=== PATIENT | male | born 1970 | race Caucasian/White ===

== ENCOUNTER → 2016-10-19 | Outpatient (CLI) | payer OTHER ==
[~2016-10-19] MED LIST: BACT2OIN TOPICAL; BACT800T5 PO; CLIN1CAP5 PO; CLIN1CAP6 PO; DOXY100C PO; GLIP10TA6 PO; HYDR25TA5 PO; LEVA500T PO; LEVEMIR SQ; LISI-515 PO; LISI10TA3 PO; METF500T PO; NOVORP2 SQ; OXYC1CAP PO; PERC5TAB12 PO; TRAM50TA PO
[2016-10-19 10:43] LABS: HDL CHOLESTEROL 44.7 MG/DL (40.0-60.0)
== END ==
LOC: CLAB 09:56
PROVIDERS: ATTEND Family Medicine
DX: C67.9 Malignant neoplasm of bladder, unspecified (principal); E11.9 Type 2 diabetes mellitus without complications; R74.8 Abnormal levels of other serum enzymes
CPT/HCPCS: 36415; 80061; 80074

== ENCOUNTER 2016-11-19 09:00 | Emergency (ER) | payer OTHER ==
[~2016-11-19] VITALS: Ht 188 cm; Wt 141.5 kg
[~2016-11-19 09:00] MED LIST changes: -BACT2OIN TOPICAL; -BACT800T5 PO; -CLIN1CAP5 PO; -CLIN1CAP6 PO; -DOXY100C PO; -GLIP10TA6 PO; -LEVA500T PO; -LISI-515 PO; -NOVORP2 SQ; -OXYC1CAP PO; -PERC5TAB12 PO; -TRAM50TA PO
[2016-11-19 09:02] VITALS: BP 168/112; PULSE 64; RESP 20; TEMP 98; O2SAT 97
[2016-11-19] MEDS ORDERED: MORPHINE SULFATE 4 MG/ML INJ IV PUSH ONE (09:30)
[2016-11-19] MEDS ORDERED: LIDOCAINE HCL 2% 50 ML VIAL INFIL ONE (09:30)
[2016-11-19] MEDS ORDERED: CLINDAMYCIN PHOS 600 MG/4 ML VIAL IM ONE (09:30)
[2016-11-19 09:45] VITALS: RESP 17
[2016-11-19] MEDS ORDERED: CLINDAMYCIN INJ 600 MG in SODIUM CHLORIDE 0.9% INJ 100 ML IV ONE (09:45)
[2016-11-19 09:59] LABS: AUTOMATED NEUTROPHIL # 5.9 TH/MM3 (1.8-7.7); BASOPHIL % 0.4 % (0.0-2.0); EOSINOPHIL # 0.2 TH/MM3 (0-0.4); EOSINOPHIL % 1.9 % (0.0-4.0); HEMATOCRIT 42.2 % (39.0-51.0); HEMO FLAGS DIFF FINAL; LYMPH % 20.8 % (9.0-44.0); LYMPHOCYTE # 1.7 TH/MM3 (1.0-4.8); MEAN CELL VOLUME 80.2 FL (80.0-100.0); MEAN CORPUSCULAR HEMOGLOBIN 26.8 PG (27.0-34.0); MEAN CORPUSCULAR HGB CONC 33.4 % (32.0-36.0); MONO % 6.2 % (0.0-8.0); NEUT % 70.7 % (16.0-70.0); PLATELET COUNT 254 TH/MM3 (150-450); RED BLOOD COUNT 5.27 MIL/MM3 (4.50-5.90); RED CELL DISTRIBUTION WIDTH 13.2 % (11.6-17.2); WHITE BLOOD COUNT 8.3 TH/MM3 (4.0-11.0)
--- NOTE | 2016-11-19 10:09 | RADRPT ---
EXAM DATE/TIME: 11/19/2016 09:55 [facility] COMPARISON: No previous studies available for comparison. INDICATIONS : Skin Complaint, swelling in right forearm. MEDICAL HISTORY : None. SURGICAL HISTORY : None. ENCOUNTER: Initial ACUITY: 1 day PAIN SCORE: 5/10 LOCATION: Right forearm FINDINGS: There is medial predominant soft tissue swelling. No radiopaque foreign body. The right radius and ul na are intact. CONCLUSION: Nonspecific soft tissue swelling without acute bony abnormality. Blayne Serna MD on November 19, 2016 at 10:06 Board Certified Radiologist. This report was verified electronically.
[2016-11-19 10:12] LABS: BICARBONATE 28.7 MEQ/L (21.0-32.0); POTASSIUM 4.1 MEQ/L (3.5-5.1)
--- NOTE | 2016-11-19 10:49 | PD ---
HPI Chief Complaint: Skin Problem Time Seen by Provider: 09:18 Travel History International Travel<30 days: No Contact w/Intl Traveler<30days: No Traveled to known affect area: No History of Present Illness HPI Patient is a 46-year-old male with history of bladder cancer as well as diabetes , who comes in complaining of a painful abscess to his right arm. He says he noticed about 3 days ago, and it got bigger yesterday. He is a asphalt roller operator and says that he has been scratched by some of the [place]. His had issues with abscesses in the past. He denies any fever or chills. He denies any other complaints today. PFSH Past Medical History Arthritis: Yes Asthma: No Autoimmune Disease: No Blood Disorders: No Anxiety: No Depression: No Cancer: Yes (BLADDER) Cardiovascular Problems: Yes (htn on meds) High Cholesterol: No Chemotherapy: Yes Chest Pain: No Congestive Heart Failure: No COPD: No Cerebrovascular Accident: No Diabetes: Yes Patient Takes Glucophage: Yes Diminished Hearing: No Endocrine: No Gastrointestinal Disorders: No Genitourinary: Yes Headaches: Yes Hepatitis: No Hiatal Hernia: No Heparin Induced Thrombocytopen: No Hypertension: Yes Immune Disorder: No Implanted Vascular Access Dvce: Yes Kidney Stones: Yes Medical other: Yes (HEAD INJURY 1993 HX SEIZURES,arthritis) Musculoskeletal: Yes Neurologic: Yes Psychiatric: No Reproductive: No Respiratory: Yes Migraines: No Radiation Therapy: Yes (2013) Renal Failure: No Seizures: Yes (HEAD INJURY) Sickle Cell Disease: No Sleep Apnea: Yes Thyroid Disease: No Tetanus Vaccination: < 5 Years Influenza Vaccination: Yes Past Surgical History Abdominal Surgery: Yes AICD: No Appendectomy: Yes Arteriovenous Shunt: No Body Medical Devices: plate in right ankle Cardiac Surgery: No Ear Surgery: No Endocrine Surgery: No Eye Surgery: No Genitourinary Surgery: Yes (bladder cancer) Gynecologic Surgery: No Hysterectomy: Yes Insulin Pump: No Joint Replacement: No Neurologic Surgery: No Oral Surgery: No Pacemaker: No Thoracic Surgery: No Other Surgery: Yes (appendectomy) Social History Alcohol Use: No Tobacco Use: No Substance Use: No (prior IV drug user) Allergies-Medications (Allergen,Severity, Reaction): Coded Allergies: Dilantin (Verified Allergy, Severe, RASH, 11/19/16) Erythromycin (Verified Allergy, Severe, RASH, 11/19/16) Keflex (Verified Allergy, Severe, Rash, 11/19/16) Penicillin (Verified Allergy, Severe, RASH, 11/19/16) Tegretol (Verified Allergy, Severe, SEIZURES, 11/19/16) Hydrocodone (Verified Allergy, Unknown, HIVES, 11/19/16) Tylenol #3 (Verified Adverse Reaction, Severe, "UPSETS HIS STOMACH", ) ALLERGIC TO CODEINE NOT THE ACETAMINOPHEN *MDRO Multi-Drug Resistant Organism (Verified Adverse Reaction, Unknown, ) 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) Reported Meds & Prescriptions Reported Meds & Active Scripts Active Metformin (Metformin HCl) 500 Mg Tab 1,000 Mg PO BIDPC With meals Levemir Inj (Insulin Detemir) 1,000 unit/ 10 ML Vial 30 Units SQ BID 30 Days Do not mix with any other Insulin. Lisinopril 10 Mg Tab 10 Mg PO DAILY Hydrochlorothiazide 25 Mg Tab 25 Mg PO DAILY Review of Systems Except as stated in HPI: all other systems reviewed are Neg General / Constitutional: No: Fever, Chills HENT: No: Headaches Cardiovascular: No: Chest Pain or Discomfort Respiratory: No: Shortness of Breath Gastrointestinal: No: Nausea, Vomiting Genitourinary: No: Dysuria Musculoskeletal: Positive: Pain Skin: Positive Lesions Neurologic: No: Weakness, Dizziness Physical Exam Narrative GENERAL: Awake and alert, in no acute distress SKIN: Warm and dry. 4cm fluctuant mass to right forearm with overlying erythema. 1cm abscess to base of right thumb, no fluctuance. HEAD: Atraumatic. Normocephalic. EYES: Pupils equal and round. No scleral icterus. No injection or drainage. ENT: Mucous membranes pink and moist. NECK: Trachea midline. No JVD. CARDIOVASCULAR: Regular rate and rhythm. No murmur appreciated. RESPIRATORY: No accessory muscle use. Clear to auscultation. Breath sounds equal bilaterally. MUSCULOSKELETAL: No obvious deformities. No clubbing. No cyanosis. No edema. NEUROLOGICAL: Awake and alert. No obvious cranial nerve deficits. Motor grossly within normal limits. Normal speech. PSYCHIATRIC: Appropriate mood and affect; insight and judgment normal. Data Data Last Documented VS Vital Signs Date Time Temp Pulse Resp B/P Pulse Ox O2 Delivery O2 Flow Rate FiO2 11/19/16 09:45 17 11/19/16 09:12 72 11/19/16 09:02 98.0 168/112 97 Room Air Orders Basic Metabolic Panel (Bmp) (11/19/16 09:26) Complete Blood Count With Diff (11/19/16 09:26) Wound Culture And Gram Stain (11/19/16 09:26) Iv Access Insert/Monitor (11/19/16 09:26) Lidocaine 2% Inj (Xylocaine 2% Inj) (11/19/16 09:30) Clindamycin Inj (Cleocin Inj) (11/19/16 09:30) Morphine Inj (Morphine Inj) (11/19/16 09:30) Forearm (2vws) (11/19/16 ) Clindamycin Inj (Cleocin Inj) (11/19/16 09:45) Labs Laboratory Tests Test 11/19/16 09:35 White Blood Count 8.3 TH/MM3 Red Blood Count 5.27 MIL/MM3 Hemoglobin 14.1 GM/DL Hematocrit 42.2 % Mean Corpuscular Volume 80.2 FL Mean Corpuscular Hemoglobin 26.8 PG Mean Corpuscular Hemoglobin 33.4 % Concent Red Cell Distribution Width 13.2 % Platelet Count 254 TH/MM3 Mean Platelet Volume 8.2 FL Neutrophils (%) (Auto) 70.7 % Lymphocytes (%) (Auto) 20.8 % Monocytes (%) (Auto) 6.2 % Eosinophils (%) (Auto) 1.9 % Basophils (%) (Auto) 0.4 % Neutrophils # (Auto) 5.9 TH/MM3 Lymphocytes # (Auto) 1.7 TH/MM3 Monocytes # (Auto) 0.5 TH/MM3 Eosinophils # (Auto) 0.2 TH/MM3 Basophils # (Auto) 0.0 TH/MM3 CBC Comment DIFF FINAL Differential Comment Sodium Level 135 MEQ/L Potassium Level 4.1 MEQ/L Chloride Level 98 MEQ/L Carbon Dioxide Level 28.7 MEQ/L Anion Gap 8 MEQ/L Blood Urea Nitrogen 9 MG/DL Creatinine 0.67 MG/DL Estimat Glomerular Filtration 129 ML/MIN Rate Random Glucose 292 MG/DL Calcium Level 8.8 MG/DL MDM Medical Decision Making Medical Screen Exam Complete: Yes Emergency Medical Condition: Yes Medical Record Reviewed: Yes Differential Diagnosis Abscess versus cellulitis versus soft tissue infection Narrative Course Patient is a 46-year-old male comes in complaining of pain and swelling to his right arm. Exam shows a 4 cm fluctuant abscess to the forearm as well as a 1 cm nonfluctuant abscess to the base of the right thumb. IV established, labs sent. Labs show no acute abnormalities. X-ray of the forearm obtained shows no gas under the skin. Patient given morphine for pain. Given a dose of clindamycin here. Forearm abscess was drained, large amount of pus expressed. Wound was bandaged and patient discharge with prescription for clindamycin. Patient has an appointment with Dr. Garcia on Sunday. Advised to keep the area clean and dry. Advised to return to the ED immediately if it seems to be worsening, or he develops fevers or is feeling worse. Procedures Procedure Narrative INCISION AND DRAINAGE OF ABSCESS: The area was prepped and was sterilely draped. A subcutaneous wheal of 2 % Xylocaine with a total number 4 mL was used to anesthetize the area properly. A number 11 blade scalpel was used to make a 0.5-cm incision across the area of the abscess. The abscess was drained , complex loculations were broken down, and irrigated with normal saline. Cultures were obtained. Sterile dressing applied. Diagnosis Primary Impression: Abscess Patient Instructions: Abscess (ED), General Instructions Additional Instructions: Follow up with your doctor as scheduled. Take all of your antibiotics. Return to the ED for any worsening symptoms. Scripts Oxycodone 5 Mg Cap5 Mg PO Q6H PRN (PAIN) #6 CAP Ref 0 Prov:Ginger Schwartz MD 11/19/16 Clindamycin 300 Mg [id number] Mg PO Q8H 7 Days Ref 0 Prov:Ginger Schwartz MD 11/19/16 Disposition: 01 DISCHARGE HOME Condition: Stable Ginger Schwartz MD Nov 19, 2016 10:49
[2016-11-19] MEDS ORDERED: CLIN1CAP6 PO (11:04)
[2016-11-19] MEDS ORDERED: OXYC1CAP PO (11:04)
[2016-11-19 11:07] VITALS: BP 160/81; TEMP 97.8
[2016-11-28] MEDS ORDERED: GLIP10TA6 PO (10:02)
[2016-12-04] MEDS ORDERED: TRAM50TA PO (10:37)
[2016-12-04] MEDS ORDERED: LEVA500T PO (10:37)
[2016-12-04] MEDS ORDERED: PERC5TAB12 PO (13:00)
[2016-12-08] MEDS ORDERED: PERC5TAB12 PO (10:51)
[2016-12-27] MEDS ORDERED: BACT800T5 PO (09:44)
[2017-01-23] MEDS ORDERED: BACT800T5 PO (09:34)
[2017-01-23] MEDS ORDERED: LISI-515 PO (09:38)
== END 2016-11-19 11:07 | disposition home or self-care (01) ==
LOC: NEPE 09:00
DX: L02.413 Cutaneous abscess of right upper limb (principal); B95.61 Methicillin susceptible Staphylococcus aureus infection as the cause of diseases classified elsewhere
CPT/HCPCS: 10060; 73090; 80048; 85025; 86403; 87070; 87186; 96365; 96375; 99283; J2270; 87205

== ENCOUNTER → 2016-11-21 | Outpatient (CLI) | payer OTHER ==
[~2016-11-21] MED LIST changes: +BACT2OIN TOPICAL; +BACT800T5 PO; +CLIN1CAP5 PO; +CLIN1CAP6 PO; +DOXY100C PO; +GLIP10TA6 PO; +LEVA500T PO; +LISI-515 PO; +OXYC1CAP PO; +PERC5TAB12 PO; +TRAM50TA PO
[2016-11-23 03:52] LABS: HCV RNA PCR IU/ML 4610000 IU/mL (()); HCV RNA PCR LOGIU/ML 6.66 (())
[2016-11-23 17:52] LABS: HEPATITIS C RNA GENOTYPE 1a (())
== END ==
LOC: CLAB 09:41
PROVIDERS: ATTEND Nurse Practitioner Family
DX: R76.8 Other specified abnormal immunological findings in serum (principal)
CPT/HCPCS: 36415; 87522; 87902

== ENCOUNTER → 2016-12-04 | Day surgery (SDC) | payer OTHER ==
[~2016-12-04] VITALS: Ht 188 cm; Wt 142.5 kg
[~2016-12-04] MED LIST changes: +*morphine SULFATE 8 MG/ML PERIprocedure ONLY ONE; -CLIN1CAP6 PO; +DO NOT ADM ANY ANTICOAGULANT DRUGS XX PRN; +INSULIN HUMAN REGULAR 1,000 UNITS/10 ML VIAL SQ PRN; +LACTATED RINGER'S 1000 ML INJ 1,000 ML IV ONE; +LACTATED RINGER'S 1000 ML IV SCH; +LEVOFLOXACIN 500 MG PREMIX INJ 100 ML IV SCH; +METOPROLOL TARTRATE 25 MG TAB PO PRN; +MORPHINE SULFATE 4 MG/ML INJ ONE; +NEOSTIGMINE 3 MG/3 ML SYR IV ONE; +ONDANSETRON HCL 4 MG/2 ML VIAL IV PUSH ONE; +ONDANSETRON HCL 4 MG/2 ML VIAL IV PUSH PRN; -OXYC1CAP PO; +PROPOFOL 200 MG/20 ML AMP IV ONE; +SODIUM CHLORID 0.9% 500 ML IV SCH; +traMADol HCL 50 MG TAB PO PRN
[2016-12-04 07:43] VITALS: BP 160/101; PULSE 69; RESP 16; TEMP 98.1; O2SAT 96
[2016-12-04 08:18] LABS: AUTOMATED NEUTROPHIL # 4.1 TH/MM3 (1.8-7.7); BASOPHIL # 0.1 TH/MM3 (0-0.2); EOSINOPHIL # 0.2 TH/MM3 (0-0.4); EOSINOPHIL % 2.2 % (0.0-4.0); LYMPH % 28.5 % (9.0-44.0); LYMPHOCYTE # 1.9 TH/MM3 (1.0-4.8); MEAN CELL VOLUME 79.3 FL (80.0-100.0); MEAN CORPUSCULAR HEMOGLOBIN 27.2 PG (27.0-34.0); MEAN CORPUSCULAR HGB CONC 34.3 % (32.0-36.0); MONO % 7.2 % (0.0-8.0); NEUT % 61.1 % (16.0-70.0); PLATELET COUNT 241 TH/MM3 (150-450); RED BLOOD COUNT 5.68 MIL/MM3 (4.50-5.90); RED CELL DISTRIBUTION WIDTH 13.4 % (11.6-17.2); WHITE BLOOD COUNT 6.8 TH/MM3 (4.0-11.0)
[2016-12-04 08:31] LABS: HEMO FLAGS AUTO DIFF
[2016-12-04 09:11] LABS: SCAN/DIFF AUTO DIFF CONFIRMED
--- NOTE | 2016-12-04 10:35 | PD.OP ---
Operative Report Date of Surgery: Dec 04, 2016 Preoperative Diagnosis: (1) Bladder mass Postoperative Diagnosis: (1) Bladder mass Procedure: Cystoscopy, biopsy and fulguration of bladder mass Anesthesia: General Surgeon: Pk Roberts Wood Lather(s): None Operation and Findings: Indication for procedure: Case of a pleasant 46-year-old gentleman with recurrent bladder cancer who presents today for biopsy and fulguration of a small recurrent mass involving the bladder dome. Operative procedure in detail: Patient was brought to the operating suite and placed supine on the cystoscopy table. He was then placed under general anesthesia. He was then repositioned in the dorsolithotomy position and prepped and draped in normal sterile fashion. After appropriate timeout was undertaken I proceeded with a thorough cystoscopic evaluation utilizing the rigid cystoscope. The 20 Lao sheath and both 30 and 70 lenses were utilized. Once again the patient was noted to have a raised erythematous lesion involving the bladder dome approximately 1 cm in diameter suspicious for recurrent disease. A cup biopsy was taken and sent off to pathology. Next the rollerball was utilized and the biopsy site and adjacent tissue was fulgurated. Patient tolerated the procedure well without complications and was transferred to the PACU in satisfactory condition. Pk Roberts MD Dec 04, 2016 10:35
--- NOTE | 2016-12-04 11:16 | RADRPT ---
EXAM DATE/TIME: 12/04/2016 10:50 [facility] COMPARISON: CHEST SINGLE AP, August 01, 2015, 15:36. INDICATIONS : Central line placement MEDICAL HISTORY : Carcinoma, bladder. SURGICAL HISTORY : None. ENCOUNTER: Initial ACUITY: 1 day PAIN SCORE: Non-responsive. LOCATION: Bilateral chest FINDINGS: A single view of the chest demonstrates interval placement of a right jugular central venous catheter . Tip of the catheter is in the superior vena cava. There is no evidence of pneumothorax or acute air space disease. Heart and mediastinal structures are stable. CONCLUSION: Status post insertion of a right jugular central venous catheter which is in good position. No evidence of pneumothorax or acute process. Stanley Baker MD on December 04, 2016 at 11:14 Board Certified Radiologist. This report was verified electronically.
[2016-12-04 12:55] VITALS: BP 158/106; PULSE 66; RESP 18; TEMP 97.7; O2SAT 99
== END | disposition home or self-care (01) ==
LOC: HSDC 06:54
PROVIDERS: ATTEND Urology
DX: N30.01 Acute cystitis with hematuria (principal); N30.21 Other chronic cystitis with hematuria; Z85.51 Personal history of malignant neoplasm of bladder; E11.9 Type 2 diabetes mellitus without complications; I10 Essential (primary) hypertension; M19.90 Unspecified osteoarthritis, unspecified site; Z87.891 Personal history of nicotine dependence; E66.01 Morbid (severe) obesity due to excess calories; Z68.41 Body mass index [BMI] 40.0-44.9, adult; Z88.1 Allergy status to other antibiotic agents; Z88.0 Allergy status to penicillin; Z88.8 Allergy status to other drugs, medicaments and biological substances; Z79.84 Long term (current) use of oral hypoglycemic drugs; Z79.4 Long term (current) use of insulin
CPT/HCPCS: 00912; 52234; 71010; 82948; 85025; 88305; J2270; J2405; J2710; J3010; J7120; 88307

== ENCOUNTER → 2017-01-15 | Outpatient (CLI) | payer OTHER ==
[~2017-01-15] MED LIST changes: -*morphine SULFATE 8 MG/ML PERIprocedure ONLY ONE; -DO NOT ADM ANY ANTICOAGULANT DRUGS XX PRN; -INSULIN HUMAN REGULAR 1,000 UNITS/10 ML VIAL SQ PRN; -LACTATED RINGER'S 1000 ML INJ 1,000 ML IV ONE; -LACTATED RINGER'S 1000 ML IV SCH; -LEVA500T PO; -LEVOFLOXACIN 500 MG PREMIX INJ 100 ML IV SCH; -METOPROLOL TARTRATE 25 MG TAB PO PRN; -MORPHINE SULFATE 4 MG/ML INJ ONE; -NEOSTIGMINE 3 MG/3 ML SYR IV ONE; -ONDANSETRON HCL 4 MG/2 ML VIAL IV PUSH ONE; -ONDANSETRON HCL 4 MG/2 ML VIAL IV PUSH PRN; -PERC5TAB12 PO; -PROPOFOL 200 MG/20 ML AMP IV ONE; -SODIUM CHLORID 0.9% 500 ML IV SCH; -traMADol HCL 50 MG TAB PO PRN
[2017-01-15 14:15] LABS: HEMOGLOBIN Ao 81.6 %; HEMOGLOBIN LA1C 2.3 %; HEMOGLOBIN P3 4.2 %
== END ==
LOC: CLAB 08:16
PROVIDERS: ATTEND Family Medicine
DX: E11.9 Type 2 diabetes mellitus without complications (principal)
CPT/HCPCS: 36415; 83036

== ENCOUNTER 2017-02-13 19:53 | Emergency (ER) | payer OTHER ==
[~2017-02-13 19:53] MED LIST changes: -BACT2OIN TOPICAL; -CLIN1CAP5 PO; -DOXY100C PO; -LISI10TA3 PO; -TRAM50TA PO
[2017-02-13 19:55] VITALS: BP 134/67; PULSE 71; RESP 16; TEMP 98.7; O2SAT 96
[2017-02-13] MEDS ORDERED: VANCOMYCIN INJ 1,000 MG in SODIUM CHLOR 0.9% 250 ML INJ 250 ML IV ONE (20:30)
[2017-02-13 20:55] LABS: AUTOMATED NEUTROPHIL # 3.8 TH/MM3 (1.8-7.7); BASOPHIL # 0.1 TH/MM3 (0-0.2); EOSINOPHIL # 0.2 TH/MM3 (0-0.4); EOSINOPHIL % 2.9 % (0.0-4.0); HEMATOCRIT 42.3 % (39.0-51.0); HEMO FLAGS DIFF FINAL; LYMPH % 34.1 % (9.0-44.0); LYMPHOCYTE # 2.4 TH/MM3 (1.0-4.8); MEAN CELL VOLUME 79.1 FL (80.0-100.0); MEAN CORPUSCULAR HEMOGLOBIN 25.9 PG (27.0-34.0); MEAN CORPUSCULAR HGB CONC 32.7 % (32.0-36.0); PLATELET COUNT 272 TH/MM3 (150-450); RED BLOOD COUNT 5.34 MIL/MM3 (4.50-5.90); RED CELL DISTRIBUTION WIDTH 13.7 % (11.6-17.2)
[2017-02-13 21:18] LABS: BICARBONATE 32.1 MEQ/L (21.0-32.0); POTASSIUM 3.9 MEQ/L (3.5-5.1)
--- NOTE | 2017-02-13 21:29 | PD ---
HPI Chief Complaint: Skin Problem Time Seen by Provider: 21:24 Travel History International Travel<30 days: No Contact w/Intl Traveler<30days: No Traveled to known affect area: No History of Present Illness HPI 26-year-old male that presents to the ED for evaluation of possible skin infection. Per patient she has a history of MRSA and has had multiple infections in his past. Per patient he does have a remote history of IV drug abuse and he denies doing this anymore. Per patient he does get a little bug bites because he works for [employer]. Patient has a history of cancer as well that is currently under remission. He denies any chest pain or shortness of breath. He states that the bumps are in his legs bilaterally as well as his left arm. Per patient the slightly painful but not fluid-filled. Patient does have bug bites to his right arm as well as his left arm which she is not really concerned about. He states that he went to see his doctor Dr. Hall who started him on bactrim and this seemed to get the infection away but now he is having new bumps since finished antibiotics. Denies any other issues. No fevers chills or sweats. Per patient the pain is 2 out of 10. PFSH Past Medical History Arthritis: Yes Asthma: No Autoimmune Disease: No Blood Disorders: No Anxiety: No Depression: No Cancer: Yes (BLADDER) Cardiovascular Problems: Yes High Cholesterol: No Chemotherapy: Yes Chest Pain: No Congestive Heart Failure: No COPD: No Cerebrovascular Accident: No Diabetes: Yes Patient Takes Glucophage: Yes Diminished Hearing: No Endocrine: No Gastrointestinal Disorders: No Genitourinary: Yes (BLADDER CANCER) Headaches: Yes Hepatitis: Yes (HEPATITIS C) Hiatal Hernia: No Heparin Induced Thrombocytopen: No Hypertension: Yes Immune Disorder: No Implanted Vascular Access Dvce: Yes Kidney Stones: Yes Medical other: No Musculoskeletal: Yes (LOWER BACK DISC PROBLEM, ARTHRITIS) Neurologic: Yes (SEIZURES) Psychiatric: No Reproductive: No Respiratory: Yes (SLEEP APNEA) Migraines: No Radiation Therapy: Yes (2013) Renal Failure: No Seizures: Yes (HEAD INJURY) Sickle Cell Disease: No Sleep Apnea: Yes Thyroid Disease: No Past Surgical History Abdominal Surgery: Yes (APPENDECTOMY) AICD: No Appendectomy: Yes Arteriovenous Shunt: No Body Medical Devices: plate in right ankle Cardiac Surgery: No Ear Surgery: No Endocrine Surgery: No Eye Surgery: No Genitourinary Surgery: Yes (9 SURGERIES ON BLADDER) Gynecologic Surgery: No Hysterectomy: Yes Insulin Pump: No Joint Replacement: No Neurologic Surgery: No Oral Surgery: No Pacemaker: No Thoracic Surgery: No Other Surgery: Yes (appendectomy) Social History Alcohol Use: No Tobacco Use: No Substance Use: No (prior IV drug user) Allergies-Medications (Allergen,Severity, Reaction): Coded Allergies: Dilantin (Verified Allergy, Severe, RASH, 02/13/17) Erythromycin (Verified Allergy, Severe, RASH, 02/13/17) Keflex (Verified Allergy, Severe, Rash, 02/13/17) Penicillin (Verified Allergy, Severe, RASH, 02/13/17) Tegretol (Verified Allergy, Severe, HIVES, 02/13/17) Hydrocodone (Verified Allergy, Unknown, HIVES, 02/13/17) Tylenol #3 (Verified Adverse Reaction, Severe, "UPSETS HIS STOMACH", ) ALLERGIC TO CODEINE NOT THE ACETAMINOPHEN *MDRO Multi-Drug Resistant Organism (Verified Adverse Reaction, Unknown, ) 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) Reported Meds & Prescriptions Reported Meds & Active Scripts Active Lisinopril 20 Mg Tab 20 Mg PO DAILY Glipizide 10 Mg Tab 10 Mg PO BIDAC Take 30 minutes before a meal Metformin (Metformin HCl) 500 Mg Tab 1,000 Mg PO BIDPC With meals Levemir Inj (Insulin Detemir) 1,000 unit/ 10 ML Vial 30 Units SQ BID 30 Days Do not mix with any other Insulin. Hydrochlorothiazide 25 Mg Tab 25 Mg PO DAILY Review of Systems Except as stated in HPI: all other systems reviewed are Neg Physical Exam Narrative GENERAL: SKIN: Warm and dry. HEAD: Atraumatic. Normocephalic. EYES: Pupils equal and round. No scleral icterus. No injection or drainage. ENT: No nasal bleeding or discharge. Mucous membranes pink and moist. Tongue is midline. No uvula deviation. NECK: Trachea midline. No JVD. CARDIOVASCULAR: Regular rate and rhythm. No murmurs, S3, S4. RESPIRATORY: No accessory muscle use. Clear to auscultation. Breath sounds equal bilaterally. GASTROINTESTINAL: Abdomen soft, non-tender, nondistended. Hepatic and splenic margins not palpable. MUSCULOSKELETAL: Extremities without clubbing, cyanosis, or edema. No obvious deformities. Full range of motion of the upper and lower extremities bilaterally. 2+ pulses bilaterally. Patient has areas of erythema about less than 1 cm in diameter almost appear like bug bites on the medial aspect of the left and right leg as well as the left hand. Patient has bug bite-like lesions on the right forearm as well as the left forearm which appear to be chronic. Erythema is blanchable. Warm to touch and slightly tender. NEUROLOGICAL: Awake and alert. No obvious cranial nerve deficits. Motor grossly within normal limits. Five out of 5 muscle strength in the arms and legs. Normal speech. PSYCHIATRIC: Appropriate mood and affect; insight and judgment normal. Data Data Last Documented VS Vital Signs Date Time Temp Pulse Resp B/P Pulse Ox O2 Delivery O2 Flow Rate FiO2 02/13/17 19:55 98.7 71 16 134/67 96 Room Air Orders Complete Blood Count With Diff (02/13/17 20:19) Basic Metabolic Panel (Bmp) (02/13/17 20:19) Blood Culture (02/13/17 20:19) Iv Access Insert/Monitor (02/13/17 20:19) Vancomycin Inj (Vancomycin Inj) (02/13/17 20:30) Labs Laboratory Tests Test 02/13/17 20:35 White Blood Count 7.0 TH/MM3 Red Blood Count 5.34 MIL/MM3 Hemoglobin 13.8 GM/DL Hematocrit 42.3 % Mean Corpuscular Volume 79.1 FL Mean Corpuscular Hemoglobin 25.9 PG Mean Corpuscular Hemoglobin 32.7 % Concent Red Cell Distribution Width 13.7 % Platelet Count 272 TH/MM3 Mean Platelet Volume 7.5 FL Neutrophils (%) (Auto) 54.0 % Lymphocytes (%) (Auto) 34.1 % Monocytes (%) (Auto) 8.0 % Eosinophils (%) (Auto) 2.9 % Basophils (%) (Auto) 1.0 % Neutrophils # (Auto) 3.8 TH/MM3 Lymphocytes # (Auto) 2.4 TH/MM3 Monocytes # (Auto) 0.6 TH/MM3 Eosinophils # (Auto) 0.2 TH/MM3 Basophils # (Auto) 0.1 TH/MM3 CBC Comment DIFF FINAL Differential Comment Sodium Level 136 MEQ/L Potassium Level 3.9 MEQ/L Chloride Level 96 MEQ/L Carbon Dioxide Level 32.1 MEQ/L Anion Gap 8 MEQ/L Blood Urea Nitrogen 15 MG/DL Creatinine 0.91 MG/DL Estimat Glomerular Filtration 91 ML/MIN Rate Random Glucose 150 MG/DL Calcium Level 9.2 MG/DL MDM Medical Decision Making Medical Screen Exam Complete: Yes Emergency Medical Condition: Yes Medical Record Reviewed: Yes Interpretation(s) CBC & BMP Diagram 02/13/17 20:35 Differential Diagnosis Cellulitis versus MRSA versus skin infection Narrative Course 46-year-old male that presents to the ED for evaluation of skin lesions. Patient was properly examined and was found to have signs and symptoms consistent with appears to be early cellulitis. Patient has a chronic history of MRSA. Nerve not overly impressive but he does appear to have multiple ones. One in each extremity. Patient was just put on Bactrim. At this time I recommend labs and IV antibiotics. Labs were essentially unremarkable. Patient was given vancomycin. No retractions. This time I recommend trying clindamycin to cover for possible persistence. Patient is in agreement with this plan. I recommend also Bactroban to apply to the wounds. Close follow with PCP. See ED for any worsening symptoms. Diagnosis Primary Impression: Cellulitis Qualified Code: L03.119 - Cellulitis of lower extremity, unspecified laterality Patient Instructions: General Instructions Additional Instructions: Take medication as prescribed. Apply cream as prescribed. Follow with PCP. See ED for worsening symptoms. Med/Other Pt SpecificInfo: Prescription(s) given Disposition: 01 DISCHARGE HOME Condition: Stable Yasmani Carlton February 13, 2017 21:29
[2017-02-13] MEDS ORDERED: CLIN1CAP5 PO (21:30)
[2017-02-13] MEDS ORDERED: BACT2OIN TOPICAL (21:30)
== END 2017-02-13 22:34 | disposition home or self-care (01) ==
LOC: NEPE 19:53
DX: L03.119 Cellulitis of unspecified part of limb (principal); I10 Essential (primary) hypertension; E11.9 Type 2 diabetes mellitus without complications; G47.30 Sleep apnea, unspecified; Z79.84 Long term (current) use of oral hypoglycemic drugs; Z86.14 Personal history of Methicillin resistant Staphylococcus aureus infection; Z87.39 Personal history of other diseases of the musculoskeletal system and connective tissue; Z85.51 Personal history of malignant neoplasm of bladder; Z86.79 Personal history of other diseases of the circulatory system; Z86.19 Personal history of other infectious and parasitic diseases; Z87.442 Personal history of urinary calculi; Z86.69 Personal history of other diseases of the nervous system and sense organs
CPT/HCPCS: 80048; 85025; 87040; 87205; 96365; 99284; J3370; J7050

== ENCOUNTER 2017-03-11 09:46 | Emergency (ER) | payer OTHER ==
[~2017-03-11] VITALS: Ht 188 cm; Wt 140.0 kg
[~2017-03-11 09:46] MED LIST changes: +BACT2OIN TOPICAL; -BACT800T5 PO; +CLIN1CAP5 PO
[2017-03-11 09:48] VITALS: BP 163/106; PULSE 82; RESP 20; TEMP 98; O2SAT 99
[2017-03-11] MEDS ORDERED: KETOROLAC TROMETHAMINE 30 MG/ML (IVP) VIAL IVP ONE (10:15)
--- NOTE | 2017-03-11 10:24 | PD ---
HPI . Right ankle injury Chief Complaint: Injury Time Seen by Provider: 10:03 Travel History International Travel<30 days: No Contact w/Intl Traveler<30days: No Traveled to known affect area: No History of Present Illness HPI Patient presents with a right ankle injury. He rolled his ankle this morning. Pain is exacerbated by walking. Pain is relieved by rest. Pain is dull and constant and is rated at 9/10. In addition, the patient is complaining with MRSA. Patient reports numerous previous similar episodes. He states that he was recently treated here with vancomycin followed by [facility] as an outpatient. He states that he completed his Cleocin approximately 3-4 days ago but still has lesions. He reports a fever yesterday with a MAXIMUM TEMPERATURE of 102.1. PFSH Past Medical History Arthritis: Yes Asthma: No Autoimmune Disease: No Blood Disorders: No Anxiety: No Depression: No Cancer: Yes Cardiovascular Problems: Yes High Cholesterol: No Chemotherapy: Yes Chest Pain: No Congestive Heart Failure: No COPD: No Cerebrovascular Accident: No Diabetes: Yes Patient Takes Glucophage: Yes Diminished Hearing: No Endocrine: No Gastrointestinal Disorders: No Genitourinary: Yes (BLADDER CANCER) Headaches: Yes Hepatitis: Yes (HEPATITIS C) Hiatal Hernia: No Heparin Induced Thrombocytopen: No Hypertension: Yes Immune Disorder: No Implanted Vascular Access Dvce: Yes Kidney Stones: Yes Musculoskeletal: Yes (LOWER BACK DISC PROBLEM, ARTHRITIS) Neurologic: Yes (SEIZURES) Psychiatric: No Reproductive: No Respiratory: Yes (SLEEP APNEA) Migraines: No Radiation Therapy: Yes (2013) Renal Failure: No Seizures: Yes (HEAD INJURY) Sickle Cell Disease: No Sleep Apnea: Yes Thyroid Disease: No Past Surgical History Abdominal Surgery: Yes (APPENDECTOMY) AICD: No Appendectomy: Yes Arteriovenous Shunt: No Body Medical Devices: plate in right ankle Cardiac Surgery: No Ear Surgery: No Endocrine Surgery: No Eye Surgery: No Genitourinary Surgery: Yes (9 SURGERIES ON BLADDER) Gynecologic Surgery: No Hysterectomy: Yes Insulin Pump: No Joint Replacement: No Neurologic Surgery: No Oral Surgery: No Pacemaker: No Thoracic Surgery: No Other Surgery: Yes (appendectomy) Social History Alcohol Use: No Tobacco Use: No Substance Use: No Allergies-Medications (Allergen,Severity, Reaction): Coded Allergies: Dilantin (Verified Allergy, Severe, RASH, 03/11/17) Erythromycin (Verified Allergy, Severe, RASH, 03/11/17) Keflex (Verified Allergy, Severe, Rash, 03/11/17) Penicillin (Verified Allergy, Severe, RASH, 03/11/17) Tegretol (Verified Allergy, Severe, HIVES, 03/11/17) Hydrocodone (Verified Allergy, Unknown, HIVES, 03/11/17) Tylenol #3 (Verified Adverse Reaction, Severe, "UPSETS HIS STOMACH", ) ALLERGIC TO CODEINE NOT THE ACETAMINOPHEN *MDRO Multi-Drug Resistant Organism (Verified Adverse Reaction, Unknown, ) 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) Reported Meds & Prescriptions Reported Meds & Active Scripts Active Tramadol (Tramadol HCl) 50 Mg Tab 50 Mg PO Q4H PRN Doxycycline Hyclate 100 Mg Cap 100 Mg PO BID Lisinopril 20 Mg Tab 20 Mg PO DAILY Glipizide 10 Mg Tab 10 Mg PO BIDAC Take 30 minutes before a meal Metformin (Metformin HCl) 500 Mg Tab 1,000 Mg PO BIDPC With meals Levemir Inj (Insulin Detemir) 1,000 unit/ 10 ML Vial 30 Units SQ BID 30 Days Do not mix with any other Insulin. Hydrochlorothiazide 25 Mg Tab 25 Mg PO DAILY Review of Systems Except as stated in HPI: all other systems reviewed are Neg General / Constitutional: Positive: Fever, Chills Musculoskeletal: Positive: Myalgias, Arthralgias, Pain Skin: Positive Lesions Physical Exam Narrative GENERAL: Awake and alert and in no acute distress. SKIN: Warm and dry. He has scattered lesions on his lower extremity. They aren 't erythematous and raised. They are of varying sizes. All of them are draining. None are fluctuant. HEAD: Atraumatic. Normocephalic. EYES: Pupils equal and round. NECK: Trachea midline. CARDIOVASCULAR: Regular rate and rhythm. RESPIRATORY: No accessory muscle use. MUSCULOSKELETAL: No obvious deformities. No edema. He has scars on the right ankle consistent with previous ORIF. He has diffuse tenderness to palpation of the right ankle. There is no instability. He is distally neurovascularly intact. NEUROLOGICAL: Awake and alert. No obvious cranial nerve deficits. Motor grossly within normal limits. Normal speech. PSYCHIATRIC: Appropriate mood and affect; insight and judgment normal. Data Data Last Documented VS Vital Signs Date Time Temp Pulse Resp B/P Pulse Ox O2 Delivery O2 Flow Rate FiO2 03/11/17 09:48 98.0 82 20 163/106 99 Room Air Orders Basic Metabolic Panel (Bmp) (03/11/17 10:08) Complete Blood Count With Diff (03/11/17 10:08) Blood Culture (03/11/17 10:08) Iv Access Insert/Monitor (03/11/17 10:08) Ketorolac Inj (Toradol Inj) (03/11/17 10:15) C-Reactive Protein (Crp) (03/11/17 10:08) Westergren Sedimentation Rate (03/11/17 10:08) Ankle, Complete (Kef5pir) (03/11/17 10:08) Labs Laboratory Tests Test 03/11/17 10:23 White Blood Count 6.9 TH/MM3 Red Blood Count 5.60 MIL/MM3 Hemoglobin 14.5 GM/DL Hematocrit 43.6 % Mean Corpuscular Volume 77.9 FL Mean Corpuscular Hemoglobin 25.9 PG Mean Corpuscular Hemoglobin 33.2 % Concent Red Cell Distribution Width 13.8 % Platelet Count 274 TH/MM3 Mean Platelet Volume 8.0 FL Neutrophils (%) (Auto) 67.5 % Lymphocytes (%) (Auto) 22.8 % Monocytes (%) (Auto) 7.7 % Eosinophils (%) (Auto) 1.5 % Basophils (%) (Auto) 0.5 % Neutrophils # (Auto) 4.7 TH/MM3 Lymphocytes # (Auto) 1.6 TH/MM3 Monocytes # (Auto) 0.5 TH/MM3 Eosinophils # (Auto) 0.1 TH/MM3 Basophils # (Auto) 0.0 TH/MM3 CBC Comment DIFF FINAL Differential Comment Erythrocyte Sedimentation Rate 41 mm/hr Sodium Level 135 MEQ/L Potassium Level 4.4 MEQ/L Chloride Level 100 MEQ/L Carbon Dioxide Level 26.6 MEQ/L Anion Gap 8 MEQ/L Blood Urea Nitrogen 10 MG/DL Creatinine 0.70 MG/DL Estimat Glomerular Filtration 123 ML/MIN Rate Random Glucose 180 MG/DL Calcium Level 9.0 MG/DL C-Reactive Protein 1.40 MG/DL MDM Medical Decision Making Medical Screen Exam Complete: Yes Emergency Medical Condition: Yes Medical Record Reviewed: Yes (the patient was most recently seen here on 02/13 with skin lesions. He was treated with vancomycin in the emergency department and was discharged on Cleocin. His white blood count at that time was 7.0. The patient reported at that visit that he had been recently treated with Bactrim.) Differential Diagnosis Differential diagnosis of extremity trauma includes but is not limited to fracture, sprain or strain, dislocation, contusion My differential diagnosis includes but is not limited to localized wound infection, cellulitis, abscess Narrative Course This patient presents with 2 problems. His chief complaint is an acute right ankle injury. X-ray has been ordered. His second complaint is persistent MRSA. I have ordered a CBC, blood cultures, sedimentation rate, C-reactive protein. CBC & BMP Diagram 03/11/17 10:23 ESR 41, CRP 1.40 X-ray to my interpretation shows hardware in place. No acute injury. The history, exam, diagnostic testing, and current condition do not suggest any significant pathology to warrant further testing, continued ED treatment, admission, or surgical evaluation at this point. The patient's condition is stable and appropriate for discharge. Diagnosis Primary Impression: Ankle sprain Qualified Code: S93.401A - Sprain of right ankle, unspecified ligament, initial encounter Additional Impression: Skin lesions Scripts Tramadol 50 Mg Tab50 Mg PO Q4H PRN (PAIN) #12 TAB Ref 0 Prov:Mitzi Lizarraga MD 03/11/17 Doxycycline Hyclate 100 Mg Nrr312 Mg PO BID #20 CAP Ref 0 Prov:Mitzi Lizarraga MD 03/11/17 Disposition: 01 DISCHARGE HOME Condition: Stable Mitzi Lizarraga MD Mar 11, 2017 10:24
[2017-03-11 10:42] LABS: AUTOMATED NEUTROPHIL # 4.7 TH/MM3 (1.8-7.7); BASOPHIL % 0.5 % (0.0-2.0); EOSINOPHIL # 0.1 TH/MM3 (0-0.4); EOSINOPHIL % 1.5 % (0.0-4.0); HEMATOCRIT 43.6 % (39.0-51.0); HEMO FLAGS DIFF FINAL; LYMPH % 22.8 % (9.0-44.0); LYMPHOCYTE # 1.6 TH/MM3 (1.0-4.8); MEAN CELL VOLUME 77.9 FL (80.0-100.0); MEAN CORPUSCULAR HEMOGLOBIN 25.9 PG (27.0-34.0); MEAN CORPUSCULAR HGB CONC 33.2 % (32.0-36.0); MONO % 7.7 % (0.0-8.0); NEUT % 67.5 % (16.0-70.0); PLATELET COUNT 274 TH/MM3 (150-450); RED CELL DISTRIBUTION WIDTH 13.8 % (11.6-17.2); WHITE BLOOD COUNT 6.9 TH/MM3 (4.0-11.0)
[2017-03-11 11:30] LABS: BICARBONATE 26.6 MEQ/L (21.0-32.0)
[2017-03-11 11:31] LABS: POTASSIUM 4.4 MEQ/L (3.5-5.1)
[2017-03-11] MEDS ORDERED: DOXY100C PO (11:36)
[2017-03-11] MEDS ORDERED: TRAM50TA PO (11:36)
--- NOTE | 2017-03-11 12:15 | RADRPT ---
EXAM DATE/TIME: 03/11/2017 11:49 [facility] COMPARISON: No previous studies available for comparison. INDICATIONS : Pain from twisting of ankle. MEDICAL HISTORY : Prior fracture. SURGICAL HISTORY : Surgical repair of fracture. ENCOUNTER: Initial ACUITY: 1 day PAIN SCORE: 5/10 LOCATION: Right ankle. FINDINGS: Plate and screw fixation of the distal fibula. The hardware appears intact without evidence for loose markus. Redemonstration of ossific densities adjacent to the medial malleolus which may reflect an old avulsion injury. Degenerative changes are noted in the ankle joint. The talar dome is intact. Her bridger ntar calcaneal spurring. There is mild soft tissue prominence about the ankle. CONCLUSION: 1. Soft tissue swelling without acute fracture or dislocation. 2. Plate and screw fixation of the distal fibula. Hardware appears intact. 3. Degenerative osteoarthritis of the ankle, likely posttraumatic. Chris Molina MD on March 11, 2017 at 12:09 Board Certified Radiologist. This report was verified electronically.
== END 2017-03-11 12:22 | disposition home or self-care (01) ==
LOC: NEPD 09:46
DX: S93.401A Sprain of unspecified ligament of right ankle, initial encounter (principal); L98.9 Disorder of the skin and subcutaneous tissue, unspecified; B19.20 Unspecified viral hepatitis C without hepatic coma; M19.90 Unspecified osteoarthritis, unspecified site; E11.9 Type 2 diabetes mellitus without complications; I10 Essential (primary) hypertension; R56.9 Unspecified convulsions; Z79.899 Other long term (current) drug therapy; X50.1XXA Overexertion from prolonged static or awkward postures, initial encounter
CPT/HCPCS: 73610; 80048; 85025; 85652; 86140; 87040; 96374; 99284; J1885

== ENCOUNTER 2017-03-28 12:29 | Emergency (ER) | payer OTHER ==
[~2017-03-28] VITALS: Ht 188 cm; Wt 138.0 kg
[~2017-03-28 12:29] MED LIST changes: -BACT2OIN TOPICAL; -CLIN1CAP5 PO; +DOXY100C PO; +TRAM50TA PO
[2017-03-28 12:30] VITALS: BP 135/92; PULSE 74; RESP 18; TEMP 98.3; O2SAT 96
--- NOTE | 2017-03-28 12:47 | PD ---
Physical Exam Time Seen by Provider: 12:45 Narrative Pt presents to the ED for evaluation of MRSA skin infection of bilateral legs. was on antibiotic since Father's day without improvement. States has loss of sensation in feet. Hx of DM. States had fever yesterday. VSS. Awaiting bed placement. Data Data Last Documented VS Vital Signs Date Time Temp Pulse Resp B/P Pulse Ox O2 Delivery O2 Flow Rate FiO2 03/28/17 12:30 98.3 74 18 135/92 96 Room Air MDM Supervised Visit with KENNEY: Lakeshia Bertrand Mar 28, 2017 12:47
--- NOTE | 2017-03-28 13:12 | PD ---
HPI Chief Complaint: Skin Problem Time Seen by Provider: 12:55 Travel History International Travel<30 days: No Contact w/Intl Traveler<30days: No Traveled to known affect area: No History of Present Illness HPI This is a 46-year-old male with a history of diabetes who presents for evaluation of lower extremity nodular lesions. He reports that he developed nodular lesions on the right lower extremity in late December. Shortly thereafter he developed similar nodular densities on the left lower extremity. Initially he saw his primary care physician on January 23 and was prescribed antibiotics for presumed cellulitic infection. He was seen here on February 13 and given vancomycin and clindamycin. Symptoms persisted and she was seen here again on March 11 and started on doxycycline. Symptoms have persisted which prompted reevaluation today. He notes a new area of erythema on the medial left thigh which started over the past several days. He leaves that he may have had a low-grade fever 3- 4 days ago, none since. He has no other complaints at this time. PFSH Past Medical History Arthritis: Yes Asthma: No Autoimmune Disease: No Blood Disorders: No Anxiety: No Depression: No Cancer: Yes Cardiovascular Problems: Yes High Cholesterol: No Chemotherapy: Yes (Bladder cancer ) Chest Pain: No Congestive Heart Failure: No COPD: No Cerebrovascular Accident: No Diabetes: Yes Diminished Hearing: No Endocrine: No Gastrointestinal Disorders: No Genitourinary: Yes (BLADDER CANCER) Headaches: Yes Hepatitis: Yes (HEPATITIS C) Hiatal Hernia: No Heparin Induced Thrombocytopen: No Hypertension: Yes Immune Disorder: No Implanted Vascular Access Dvce: Yes Kidney Stones: Yes Musculoskeletal: Yes (LOWER BACK DISC PROBLEM, ARTHRITIS) Neurologic: Yes (SEIZURES) Psychiatric: No Reproductive: No Respiratory: Yes (SLEEP APNEA) Migraines: No Radiation Therapy: Yes (2013) Renal Failure: No Seizures: Yes (HEAD INJURY) Sickle Cell Disease: No Sleep Apnea: Yes Thyroid Disease: No Past Surgical History Abdominal Surgery: Yes (APPENDECTOMY) AICD: No Appendectomy: Yes Arteriovenous Shunt: No Body Medical Devices: plate in right ankle Cardiac Surgery: No Ear Surgery: No Endocrine Surgery: No Eye Surgery: No Genitourinary Surgery: Yes (9 SURGERIES ON BLADDER) Gynecologic Surgery: No Hysterectomy: Yes Insulin Pump: No Joint Replacement: No Neurologic Surgery: No Oral Surgery: No Pacemaker: No Thoracic Surgery: No Other Surgery: Yes (appendectomy) Social History Alcohol Use: No Tobacco Use: No Substance Use: No Allergies-Medications (Allergen,Severity, Reaction): Coded Allergies: Dilantin (Verified Allergy, Severe, RASH, 03/28/17) Erythromycin (Verified Allergy, Severe, RASH, 03/28/17) Keflex (Verified Allergy, Severe, Rash, 03/28/17) Penicillin (Verified Allergy, Severe, RASH, 03/28/17) Tegretol (Verified Allergy, Severe, HIVES, 03/28/17) Hydrocodone (Verified Allergy, Unknown, HIVES, 03/28/17) Tylenol #3 (Verified Adverse Reaction, Severe, "UPSETS HIS STOMACH", ) ALLERGIC TO CODEINE NOT THE ACETAMINOPHEN *MDRO Multi-Drug Resistant Organism (Verified Adverse Reaction, Unknown, ) 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) Reported Meds & Prescriptions Reported Meds & Active Scripts Active Clindamycin (Clindamycin HCl) 300 Mg Cap 300 Mg PO TID 10 Days Tramadol (Tramadol HCl) 50 Mg Tab 50 Mg PO Q4H PRN Doxycycline Hyclate 100 Mg Cap 100 Mg PO BID Lisinopril 20 Mg Tab 20 Mg PO DAILY Glipizide 10 Mg Tab 10 Mg PO BIDAC Take 30 minutes before a meal Metformin (Metformin HCl) 500 Mg Tab 1,000 Mg PO BIDPC With meals Levemir Inj (Insulin Detemir) 1,000 unit/ 10 ML Vial 30 Units SQ BID 30 Days Do not mix with any other Insulin. Hydrochlorothiazide 25 Mg Tab 25 Mg PO DAILY Review of Systems Except as stated in HPI: all other systems reviewed are Neg Physical Exam Narrative GENERAL: Well-developed well-nourished male in no acute distress SKIN: Warm and dry. Examination of the lower extremities reveals a 3 cm area of erythema on the medial left thigh. There are other nodular densities noted to the medial right calf and medial left calf without erythema, induration or fluctuance of the skin. There is no inguinal lymphadenopathy. HEAD: Atraumatic. Normocephalic. EYES: Pupils equal and round. No scleral icterus. No injection or drainage. ENT: No nasal bleeding or discharge. Mucous membranes pink and moist. NECK: Trachea midline. No JVD. CARDIOVASCULAR: Regular rate and rhythm. No murmur appreciated. RESPIRATORY: No accessory muscle use. Clear to auscultation. Breath sounds equal bilaterally. GASTROINTESTINAL: Abdomen soft, non-tender, nondistended. Hepatic and splenic margins not palpable. MUSCULOSKELETAL: No obvious deformities, skin as noted above, there is no lower extremity edema, negative Homans bilaterally. NEUROLOGICAL: Awake and alert. No obvious cranial nerve deficits. Motor grossly within normal limits. Normal speech. PSYCHIATRIC: Appropriate mood and affect; insight and judgment normal. Data Data Last Documented VS Vital Signs Date Time Temp Pulse Resp B/P Pulse Ox O2 Delivery O2 Flow Rate FiO2 03/28/17 13:07 82 20 03/28/17 12:30 98.3 135/92 96 Room Air Orders Complete Blood Count With Diff (03/28/17 13:00) Basic Metabolic Panel (Bmp) (03/28/17 13:00) Iv Access Insert/Monitor (03/28/17 13:00) Labs Laboratory Tests Test 03/28/17 13:15 White Blood Count 6.1 TH/MM3 Red Blood Count 5.61 MIL/MM3 Hemoglobin 14.7 GM/DL Hematocrit 43.3 % Mean Corpuscular Volume 77.1 FL Mean Corpuscular Hemoglobin 26.1 PG Mean Corpuscular Hemoglobin 33.9 % Concent Red Cell Distribution Width 13.9 % Platelet Count 271 TH/MM3 Mean Platelet Volume 7.6 FL Neutrophils (%) (Auto) 61.3 % Lymphocytes (%) (Auto) 29.4 % Monocytes (%) (Auto) 7.3 % Eosinophils (%) (Auto) 1.5 % Basophils (%) (Auto) 0.5 % Neutrophils # (Auto) 3.7 TH/MM3 Lymphocytes # (Auto) 1.8 TH/MM3 Monocytes # (Auto) 0.4 TH/MM3 Eosinophils # (Auto) 0.1 TH/MM3 Basophils # (Auto) 0.0 TH/MM3 CBC Comment DIFF FINAL Differential Comment Sodium Level 135 MEQ/L Potassium Level 3.9 MEQ/L Chloride Level 101 MEQ/L Carbon Dioxide Level 26.8 MEQ/L Anion Gap 7 MEQ/L Blood Urea Nitrogen 14 MG/DL Creatinine 0.83 MG/DL Estimat Glomerular Filtration 101 ML/MIN Rate Random Glucose 186 MG/DL Calcium Level 9.2 MG/DL [facility] Medical Decision Making Medical Screen Exam Complete: Yes Emergency Medical Condition: Yes Medical Record Reviewed: Yes Differential Diagnosis Erythema nodosum, cellulitis, abscess, necrotizing fasciitis Narrative Course This is a 46-year-old male who for 2 months has had nodular densities on both calves which has been treated with 3 separate rounds of antibiotics. Symptoms have persisted which prompted evaluation today. He does endorse a new area of erythema to the medial left thigh which started 1 or 2 weeks ago. On examination he does have mild cellulitis the medial left thigh which is new. He has nodular densities to the calves bilaterally which I suspect may be erythema nodosum. There are not cellulitic or indurated or fluctuant. For definitive diagnosis it is recommended that the patient follow up with a parquetry floor layer. Diagnosis Primary Impression: Cellulitis of left thigh Additional Impression: Erythema nodosum Referrals: [facility] Additional Instructions: Take the antibiotic for the cellulitis on the left thigh. As discussed, follow- up with a parquetry floor layer for further evaluation of the nodular lesions on the lower legs. Return for any emergent medical conditions. Med/Other Pt SpecificInfo: Prescription(s) given Scripts Clindamycin 300 Mg [id number] Mg PO TID 10 Days Ref 0 Prov:Hanane Shi 03/28/17 Disposition: 01 DISCHARGE HOME Condition: Stable Hilton Mcclellan Mar 28, 2017 13:12
[2017-03-28 13:55] LABS: AUTOMATED NEUTROPHIL # 3.7 TH/MM3 (1.8-7.7); BASOPHIL % 0.5 % (0.0-2.0); EOSINOPHIL # 0.1 TH/MM3 (0-0.4); EOSINOPHIL % 1.5 % (0.0-4.0); HEMATOCRIT 43.3 % (39.0-51.0); HEMO FLAGS DIFF FINAL; LYMPH % 29.4 % (9.0-44.0); LYMPHOCYTE # 1.8 TH/MM3 (1.0-4.8); MEAN CELL VOLUME 77.1 FL (80.0-100.0); MEAN CORPUSCULAR HEMOGLOBIN 26.1 PG (27.0-34.0); MEAN CORPUSCULAR HGB CONC 33.9 % (32.0-36.0); MONO % 7.3 % (0.0-8.0); NEUT % 61.3 % (16.0-70.0); PLATELET COUNT 271 TH/MM3 (150-450); RED BLOOD COUNT 5.61 MIL/MM3 (4.50-5.90); RED CELL DISTRIBUTION WIDTH 13.9 % (11.6-17.2); WHITE BLOOD COUNT 6.1 TH/MM3 (4.0-11.0)
[2017-03-28 14:05] LABS: BICARBONATE 26.8 MEQ/L (21.0-32.0); POTASSIUM 3.9 MEQ/L (3.5-5.1)
[2017-03-28] MEDS ORDERED: CLIN1CAP6 PO (14:08)
[2017-03-28 14:25] VITALS: BP 136/82
== END 2017-03-28 14:26 | disposition home or self-care (01) ==
LOC: NEPC 12:29
DX: L03.116 Cellulitis of left lower limb (principal); L52 Erythema nodosum; E11.9 Type 2 diabetes mellitus without complications; B19.20 Unspecified viral hepatitis C without hepatic coma; I10 Essential (primary) hypertension; G47.30 Sleep apnea, unspecified
CPT/HCPCS: 80048; 85025; 99283

== ENCOUNTER 2017-04-22 10:55 | Emergency (ER) | payer OTHER ==
[~2017-04-22] VITALS: Ht 188 cm; Wt 140.0 kg
[~2017-04-22 10:55] MED LIST changes: +CLIN1CAP6 PO
[2017-04-22 10:57] VITALS: BP 166/99; PULSE 66; RESP 24; TEMP 98.5; O2SAT 100
[2017-04-22 11:13] VITALS: BP 151/102; PULSE 68; RESP 21; TEMP 98.2; O2SAT 98
[2017-04-22] MEDS ORDERED: SODIUM CHLOR 0.9% 1000 ML INJ 1,000 ML IV SCH (11:18)
[2017-04-22 11:21] VITALS: O2SAT 100
--- NOTE | 2017-04-22 11:24 | PD ---
HPI Chief Complaint: Chest Pain Time Seen by Provider: 12:10 Travel History International Travel<30 days: No Contact w/Intl Traveler<30days: No Traveled to known affect area: No History of Present Illness HPI This is a 46-year-old male who presents for evaluation of abdominal pain. Symptoms started 2 days, worsened this morning. The pain is a sharp pain in the right upper quadrant of the abdomen that radiates into the back. Pain is constant with no aggravating or relieving factors. He endorses nausea and vomiting this morning. He reports of fever this morning of 101.3 orally. He took some ibuprofen afterwards. He denies any diarrhea or constipation, substernal chest pain or shortness of breath, cough or congestion. He has never had this pain before. No reported history of gallstones. He has no other complaints. PFSH Past Medical History Arthritis: Yes Asthma: No Autoimmune Disease: No Blood Disorders: No Anxiety: No Depression: No Cancer: Yes Cardiovascular Problems: Yes (htn) High Cholesterol: No Chemotherapy: Yes (bladder cancer) Chest Pain: No Congestive Heart Failure: No COPD: No Cerebrovascular Accident: Yes Diabetes: Yes (metformin) Patient Takes Glucophage: No Diminished Hearing: No Endocrine: No Gastrointestinal Disorders: No Genitourinary: Yes (BLADDER CANCER) Headaches: Yes Hepatitis: Yes (HEPATITIS C) Hiatal Hernia: No Heparin Induced Thrombocytopen: No Hypertension: Yes Immune Disorder: No Implanted Vascular Access Dvce: Yes Kidney Stones: Yes Musculoskeletal: Yes (LOWER BACK DISC PROBLEM, ARTHRITIS) Neurologic: Yes (SEIZURES) Psychiatric: No Reproductive: No Respiratory: Yes (SLEEP APNEA) Migraines: No Radiation Therapy: Yes (2013) Renal Failure: No Seizures: Yes (HEAD INJURY) Sickle Cell Disease: No Sleep Apnea: Yes Thyroid Disease: No Past Surgical History Abdominal Surgery: Yes (APPENDECTOMY) AICD: No Appendectomy: Yes Arteriovenous Shunt: No Body Medical Devices: plate in right ankle Cardiac Surgery: No Ear Surgery: No Endocrine Surgery: No Eye Surgery: No Genitourinary Surgery: Yes (9 SURGERIES ON BLADDER cancer ) Gynecologic Surgery: No Hysterectomy: Yes Insulin Pump: No Joint Replacement: No Neurologic Surgery: No Oral Surgery: No Pacemaker: No Thoracic Surgery: No Other Surgery: Yes (appendectomy) Social History Alcohol Use: No Tobacco Use: No Substance Use: No (previous iv drug user) Allergies-Medications (Allergen,Severity, Reaction): Coded Allergies: Dilantin (Verified Allergy, Severe, RASH, 04/22/17) Erythromycin (Verified Allergy, Severe, RASH, 04/22/17) Keflex (Verified Allergy, Severe, Rash, 04/22/17) Penicillin (Verified Allergy, Severe, RASH, 04/22/17) Tegretol (Verified Allergy, Severe, HIVES, 04/22/17) Hydrocodone (Verified Allergy, Unknown, HIVES, 04/22/17) Tylenol #3 (Verified Adverse Reaction, Severe, "UPSETS HIS STOMACH", ) ALLERGIC TO CODEINE NOT THE ACETAMINOPHEN *MDRO Multi-Drug Resistant Organism (Verified Adverse Reaction, Unknown, ) 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 Review of Systems Except as stated in HPI: all other systems reviewed are Neg Physical Exam Narrative GENERAL: Well-developed well-nourished male who appears uncomfortable on initial examination. SKIN: Warm and dry. HEAD: Atraumatic. Normocephalic. EYES: Pupils equal and round. No scleral icterus. No injection or drainage. ENT: No nasal bleeding or discharge. Mucous membranes pink and moist. NECK: Trachea midline. No JVD. CARDIOVASCULAR: Regular rate and rhythm. No murmur appreciated. RESPIRATORY: No accessory muscle use. Clear to auscultation. Breath sounds equal bilaterally. GASTROINTESTINAL: Abdomen soft, right upper quadrant tenderness without guarding. MUSCULOSKELETAL: No obvious deformities. No clubbing. No cyanosis. No edema. NEUROLOGICAL: Awake and alert. No obvious cranial nerve deficits. Motor grossly within normal limits. Normal speech. PSYCHIATRIC: Appropriate mood and affect; insight and judgment normal. Data Data Last Documented VS Vital Signs Date Time Temp Pulse Resp B/P Pulse Ox O2 Delivery O2 Flow Rate FiO2 04/22/17 11:21 100 Room Air 04/22/17 11:13 71 21 04/22/17 11:13 98.2 Orders Complete Blood Count With Diff (04/22/17 11:18) Comprehensive Metabolic Panel (04/22/17 11:18) Lipase (04/22/17 11:18) Lactic Acid (04/22/17 11:18) Prothrombin Time / Inr (Pt) (04/22/17 11:18) Act Partial Throm Time (Ptt) (04/22/17 11:18) Urinalysis - C+S If Indicated (04/22/17 11:18) Us Abdomen Gallbladder (04/22/17 ) Iv Access Insert/Monitor (04/22/17 11:18) Ecg Monitoring (04/22/17 11:18) Oximetry (04/22/17 11:18) Ondansetron Inj (Zofran Inj) (04/22/17 11:30) Sodium Chlor 0.9% 1000 Ml Inj (Ns 1000 M (04/22/17 11:18) Sodium Chloride 0.9% Flush (Ns Flush) (04/22/17 11:30) Electrocardiogram (04/22/17 11:18) Ckmb (Isoenzyme) Profile (04/22/17 11:18) Troponin I (04/22/17 11:18) Chest, Single Ap (04/22/17 11:18) Blood Culture (04/22/17 11:18) Morphine Inj (Morphine Inj) (04/22/17 11:30) Morphine Inj (Morphine Inj) (04/22/17 13:00) Labs Laboratory Tests Test 04/22/17 04/22/17 11:15 12:45 White Blood Count 6.0 TH/MM3 Red Blood Count 5.14 MIL/MM3 Hemoglobin 13.8 GM/DL Hematocrit 40.3 % Mean Corpuscular Volume 78.4 FL Mean Corpuscular Hemoglobin 26.8 PG Mean Corpuscular Hemoglobin 34.2 % Concent Red Cell Distribution Width 13.2 % Platelet Count 259 TH/MM3 Mean Platelet Volume 7.5 FL Neutrophils (%) (Auto) 67.5 % Lymphocytes (%) (Auto) 24.7 % Monocytes (%) (Auto) 6.6 % Eosinophils (%) (Auto) 0.8 % Basophils (%) (Auto) 0.4 % Neutrophils # (Auto) 4.1 TH/MM3 Lymphocytes # (Auto) 1.5 TH/MM3 Monocytes # (Auto) 0.4 TH/MM3 Eosinophils # (Auto) 0.0 TH/MM3 Basophils # (Auto) 0.0 TH/MM3 CBC Comment DIFF FINAL Differential Comment Prothrombin Time 10.1 SEC Prothromb Time International 0.9 RATIO Ratio Activated Partial 27.3 SEC Thromboplast Time Sodium Level 133 MEQ/L Potassium Level 4.3 MEQ/L Chloride Level 98 MEQ/L Carbon Dioxide Level 28.3 MEQ/L Anion Gap 7 MEQ/L Blood Urea Nitrogen 15 MG/DL Creatinine 0.78 MG/DL Estimat Glomerular Filtration 108 ML/MIN Rate Random Glucose 207 MG/DL Lactic Acid Level 1.0 mmol/L Calcium Level 9.4 MG/DL Total Bilirubin 0.7 MG/DL Aspartate Amino Transf 59 U/L (AST/SGOT) Alanine Aminotransferase 86 U/L (ALT/SGPT) Alkaline Phosphatase 105 U/L Total Creatine Kinase 94 U/L Troponin I LESS THAN 0.02 NG/ML Total Protein 9.3 GM/DL Albumin 3.6 GM/DL Lipase 236 U/L Urine Color YELLOW Urine Turbidity CLEAR Urine pH 6.5 Urine Specific [place] 1.020 Urine Protein TRACE mg/dL Urine Glucose (UA) 1000 mg/dL Urine Ketones NEG mg/dL Urine Occult Blood NEG Urine Nitrite NEG Urine Bilirubin NEG Urine Urobilinogen LESS THAN 2.0 MG/DL Urine Leukocyte Esterase NEG Urine WBC LESS THAN 1 /hpf Urine Squamous Epithelial <1 /hpf Cells Microscopic Urinalysis Comment CULT NOT INDICATED MDM Medical Decision Making Medical Screen Exam Complete: Yes Emergency Medical Condition: Yes Medical Record Reviewed: Yes Interpretation(s) EKG normal sinus rhythm rate 64 CBC unremarkable Lactic acid 1 CMP Lipase Troponin CK Differential Diagnosis Cholecystitis, biliary colic, aortic dissection, acute coronary syndrome, pancreatitis, mesenteric ischemia, colitis Narrative Course 46-year-old male presents with 2 days right upper quadrant abdominal pain, nausea, fevers this morning. On examination his pain is reproducible with tenderness to palpation right upper quadrant. He is afebrile and not tachycardic. He is not toxic in appearance. Review of his records reveals that he had a CT of the abdomen and pelvis in May 2016 and there is no evidence of aortic aneurysm at that time. Plan is for basic lab work, EKG, ECG monitor and pulse oximetry, chest x-ray, abdominal ultrasound. He will be given IV fluids, morphine and Zofran. Laboratory imaging studies have been reviewed and found to be reassuring. He has no leukocytosis, lactic acid is normal, his liver enzymes are mildly elevated consistent with his history of hepatitis. His total bilirubin is normal. CK and troponin are negative. EKG is nonischemic. Chest x-ray is normal. Ultrasound reveals some gallbladder sludge without evidence of stone or cholecystitis. He does feel improved after symptomatic treatment. This point in time the plan would be to have the patient follow up with primary care physician as well as general surgeon if he continues to be symptomatic. Discussed signs and symptoms that would warrant returning to the emergency room. He is stable for discharge. Procedures EKG Prior to Arrival: Yes Diagnosis Primary Impression: Abdominal pain Qualified Code: R10.31 - Right lower quadrant abdominal pain Additional Instructions: Zofran as needed for nausea. Avoid fatty foods. Stay well hydrated. Follow- up with primary care physician. Return for any emergent medical conditions. Med/Other Pt SpecificInfo: Prescription(s) given Scripts Ondansetron Odt (Zofran Odt)4 Mg Tab4 Mg SL Q6HR PRN (Nausea/Vomiting) #30 TAB Ref 0 Prov:Roberto Bocanegra MD 04/22/17 Disposition: 01 DISCHARGE HOME Condition: Stable Hilton Mcclellan Apr 22, 2017 11:24
[2017-04-22] MEDS ORDERED: ONDANSETRON HCL 4 MG/2 ML VIAL IVP ONE (11:30)
[2017-04-22] MEDS ORDERED: SODIUM CHLORIDE 0.9% FLUSH 10 ML FLUSH IV FLUSH PRN (11:30)
[2017-04-22] MEDS ORDERED: MORPHINE SULFATE 4 MG/ML INJ IV PUSH ONE ×2 (11:30→13:00)
--- NOTE | 2017-04-22 11:54 | RADRPT ---
EXAM DATE/TIME: 04/22/2017 11:22 [facility] COMPARISON: CHEST SINGLE AP, December 04, 2016, 10:50. INDICATIONS : Chest pain and shortness of breath. MEDICAL HISTORY : Diabetes mellitus type II. Carcinoma, bladder. SURGICAL HISTORY : None. ENCOUNTER: Initial ACUITY: 1 day PAIN SCORE: 8/10 LOCATION: Bilateral chest FINDINGS: Minimal parenchymal changes are present in the left base. The right lung is clear. The heart and pul monary vascularity are normal. The portion of the bony skeleton visualized is unremarkable. CONCLUSION: Minimal parenchymal changes left base. Matt Lu MD FACR on April 22, 2017 at 11:52 Board Certified Radiologist. This report was verified electronically.
[2017-04-22 12:01] LABS: AUTOMATED NEUTROPHIL # 4.1 TH/MM3 (1.8-7.7); BASOPHIL % 0.4 % (0.0-2.0); EOSINOPHIL % 0.8 % (0.0-4.0); HEMATOCRIT 40.3 % (39.0-51.0); HEMO FLAGS DIFF FINAL; LYMPH % 24.7 % (9.0-44.0); LYMPHOCYTE # 1.5 TH/MM3 (1.0-4.8); MEAN CELL VOLUME 78.4 FL (80.0-100.0); MEAN CORPUSCULAR HEMOGLOBIN 26.8 PG (27.0-34.0); MEAN CORPUSCULAR HGB CONC 34.2 % (32.0-36.0); MONO % 6.6 % (0.0-8.0); NEUT % 67.5 % (16.0-70.0); PLATELET COUNT 259 TH/MM3 (150-450); RED BLOOD COUNT 5.14 MIL/MM3 (4.50-5.90); RED CELL DISTRIBUTION WIDTH 13.2 % (11.6-17.2)
[2017-04-22 12:11] LABS: APTT (PATIENT) 27.3 SEC (24.3-30.1); INTERNATIONAL NORMALIZED RATIO 0.9 RATIO; PROTHROMBIN TIME - PATIENT 10.1 SEC (9.8-11.6)
[2017-04-22 12:37] LABS: ANION GAP 7 MEQ/L (5-15); AST (GOT) 59 U/L (15-37); BICARBONATE 28.3 MEQ/L (21.0-32.0); BLOOD UREA NITROGEN 15 MG/DL (7-18); CHLORIDE 98 MEQ/L (98-107); GLOMERULAR FILTRATION RATE 108 ML/MIN (>89); POTASSIUM 4.3 MEQ/L (3.5-5.1); SODIUM (NA) 133 MEQ/L (136-145)
[2017-04-22 12:42] LABS: ALKALINE PHOSPHATASE 105 U/L (45-117); ALT (GPT) 86 U/L (12-78); TOTAL BILIRUBIN ADULT 0.7 MG/DL (0.2-1.0)
[2017-04-22 12:55] LABS: CREATINE KINASE 94 U/L (39-308)
[2017-04-22 13:15] LABS: BLOOD, URINE NEG (NEG); GLUCOSE,URINE 1000 mg/dL (NEG); KETONE, URINE NEG (NEG); NITRITE,URINE NEG (NEG); PH, URINE 6.5 (5.0-8.5); SQUAMOUS EPITHELIAL CELL URINE <1 /hpf (0-5); URINE COLOR YELLOW (YELLW/STRAW)
[2017-04-22 13:20] LABS: COMMENT (UR) CULT NOT INDICATED; CULTURE IF INDICATED CULT NOT INDICATED
--- NOTE | 2017-04-22 13:27 | RADRPT ---
EXAM DATE/TIME: 04/22/2017 11:31 [facility] COMPARISON: CT ABDOMEN & PELVIS W CONTRAST, June 11, 2016, 13:56. INDICATIONS : Right upper quadrant pain. MEDICAL HISTORY : Hypertension. Stroke Seizures. UTI. Bladder cancer. Arthritis. Osteoarthritis. Diabetes. MRSA. Hepati tis C. History of IV drug use. SURGICAL HISTORY : Appendectomy. Left ankle surgery. ENCOUNTER: Initial ACUITY: 1 day PAIN SCORE: 4/10 LOCATION: Right upper quadrant MEASUREMENTS: LIVER: 20.5 cm length COMMON DUCT: 7 mm RIGHT KIDNEY: 13.2 x 5.5 x 6.9 cm FINDINGS: LIVER: The liver is enlarged and demonstrates fatty infiltration. No focal hepatic mass or biliary ductal di latation is noted. There is hepatopetal flow within the portal vein. COMMON DUCT: No intraluminal mass or stone visualized. GALLBLADDER: Some gallbladder sludge is noted. Contains no stones, demonstrates no wall thickening or pericholecys tic fluid. PANCREAS: The visualized portions are within normal limits. RIGHT KIDNEY: No evidence of hydronephrosis, stone, or mass. CONCLUSION: 1. Enlarged fatty liver. 2. Gallbladder sludge. Glenn Zuniga MD on April 22, 2017 at 13:22 Board Certified Radiologist. This report was verified electronically.
[2017-04-22] MEDS ORDERED: ZOFR4TAB3 SL (13:35)
--- NOTE | 2017-04-22 16:27 | EKG ---
Date Performed: 04/22/2017 Time Performed: 11:10:18 PTAGE: 46 years EKG: Sinus rhythm NORMAL ECG NO PREVIOUS TRACING DOCTOR: Jose Simmons Interpretating Date/Time 04/22/2017 16:25:23
== END 2017-04-22 14:29 | disposition home or self-care (01) ==
LOC: NEPC 10:55
DX: R10.31 Right lower quadrant pain (principal); R11.2 Nausea with vomiting, unspecified; E11.9 Type 2 diabetes mellitus without complications; I10 Essential (primary) hypertension; B19.20 Unspecified viral hepatitis C without hepatic coma; Z79.4 Long term (current) use of insulin; Z79.84 Long term (current) use of oral hypoglycemic drugs; Z79.899 Other long term (current) drug therapy; Z85.51 Personal history of malignant neoplasm of bladder
CPT/HCPCS: 71010; 76705; 80053; 81001; 82550; 83605; 83690; 84484; 85025; 85610; 85730; 87040; 93005; 96361; 96374; 96375; 96376; 99285; J2270; J2405; J7030

== ENCOUNTER 2017-08-01 00:32 | Emergency (ER) | payer OTHER ==
[~2017-08-01] VITALS: Ht 188 cm; Wt 141.5 kg
[~2017-08-01 00:32] MED LIST changes: -CLIN1CAP6 PO; +CLIN300C5 PO; +ZOFR4TAB3 SL
[2017-08-01 00:39] VITALS: BP 158/92; PULSE 102; RESP 16; TEMP 99.8; O2SAT 95
[2017-08-01] MEDS ORDERED: BACT800T5 PO (01:25)
--- NOTE | 2017-08-01 01:26 | PD ---
HPI Chief Complaint: Skin Problem Time Seen by Provider: 01:05 Travel History International Travel<30 days: No Contact w/Intl Traveler<30days: No Traveled to known affect area: No History of Present Illness HPI The patient is a 47-year-old male, insulin-dependent diabetic, who has had areas of infections on his legs. He has had this problem chronically and in the past has responded well to Bactrim DS. 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 He says he can wear long pants now, he knows that long pants protect his legs during landscaping. He states he probably scratches the lesions posterior to the knee which causes a problem. He states when he gets in a tub and soaks these areas it opens them up and helps and drain. PFSH Past Medical History Arthritis: Yes Asthma: No Autoimmune Disease: No Blood Disorders: No Anxiety: No Depression: No Cancer: Yes Cardiovascular Problems: Yes (HTN) High Cholesterol: No Chemotherapy: Yes (2015) Chest Pain: No Congestive Heart Failure: No COPD: No Cerebrovascular Accident: Yes (TIA 2014) Diabetes: Yes (IDDM) Patient Takes Glucophage: Yes Diminished Hearing: No Endocrine: No Gastrointestinal Disorders: No Genitourinary: Yes (BLADDER CANCER) Headaches: Yes Hepatitis: Yes (HEPATITIS C) Hiatal Hernia: No Heparin Induced Thrombocytopen: No Hypertension: Yes Immune Disorder: No Implanted Vascular Access Dvce: Yes Kidney Stones: Yes Musculoskeletal: Yes (LOWER BACK DISC PROBLEM, ARTHRITIS) Neurologic: Yes (SEIZURES) Psychiatric: No Reproductive: No Respiratory: Yes (SLEEP APNEA) Migraines: No Radiation Therapy: Yes (2013) Renal Failure: No Seizures: Yes (HEAD INJURY) Sickle Cell Disease: No Sleep Apnea: Yes Thyroid Disease: No Influenza Vaccination: No ?: Not Past Surgical History Abdominal Surgery: Yes (APPENDECTOMY) AICD: No Appendectomy: Yes Arteriovenous Shunt: No Body Medical Devices: plate in right ankle Cardiac Surgery: No Ear Surgery: No Endocrine Surgery: No Eye Surgery: No Genitourinary Surgery: Yes (9 SURGERIES ON BLADDER cancer ) Gynecologic Surgery: No Hysterectomy: Yes Insulin Pump: No Joint Replacement: No Neurologic Surgery: No Oral Surgery: No Pacemaker: No Thoracic Surgery: No Other Surgery: Yes (appendectomy) Social History Alcohol Use: No Tobacco Use: No (quit 2006) Substance Use: No (previous iv drug user) Allergies-Medications (Allergen,Severity, Reaction): Coded Allergies: carbamazepine (Verified Allergy, Severe, HIVES, 08/01/17) cephalexin (Verified Allergy, Severe, Rash, 08/01/17) erythromycin base (Verified Allergy, Severe, RASH, 08/01/17) penicillin G (Verified Allergy, Severe, RASH, 08/01/17) phenytoin (Verified Allergy, Severe, RASH, 08/01/17) hydrocodone (Verified Allergy, Unknown, HIVES, 08/01/17) acetaminophen (Verified Adverse Reaction, Severe, "UPSETS HIS STOMACH", ) ALLERGIC TO CODEINE NOT THE ACETAMINOPHEN codeine (Verified Adverse Reaction, Severe, "UPSETS HIS STOMACH", 08/01/17) ALLERGIC TO CODEINE NOT THE ACETAMINOPHEN *MDRO Multi-Drug Resistant Organism (Verified Adverse Reaction, Unknown, 08/01/17) 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 Review of Systems Except as stated in HPI: all other systems reviewed are Neg Physical Exam Narrative GENERAL: The patient is alert, oriented 3 and slight apparent distress with his skin lesions. SKIN: Focused skin assessment warm/dry. The patient has 4 infected areas, all of which are draining and none of which exhibited fluctuance. He has one area behind each knee and another area on the left posterior medial leg and another area on the right leg anteriorly. HEAD: Atraumatic. Normocephalic. EYES: Pupils equal and round. No scleral icterus. No injection or drainage. ENT: No nasal bleeding or discharge. Mucous membranes pink and moist. NECK: Trachea midline. No JVD. CARDIOVASCULAR: Regular rate and rhythm. No murmur appreciated. RESPIRATORY: No accessory muscle use. Clear to auscultation. Breath sounds equal bilaterally. GASTROINTESTINAL: Abdomen soft, non-tender, nondistended. Hepatic and splenic margins not palpable. MUSCULOSKELETAL: No obvious deformities. No clubbing. No cyanosis. No edema. NEUROLOGICAL: Awake and alert. No obvious cranial nerve deficits. Motor grossly within normal limits. Normal speech. PSYCHIATRIC: Appropriate mood and affect; insight and judgment normal. Data Data Last Documented VS Vital Signs Date Time Temp Pulse Resp B/P (MAP) Pulse Ox O2 Delivery O2 Flow Rate FiO2 08/01/17 01:09 18 08/01/17 00:39 99.8 102 158/92 (114) 95 MDM Medical Decision Making Medical Screen Exam Complete: Yes Emergency Medical Condition: Yes Medical Record Reviewed: Yes Differential Diagnosis Cellulitis, abscess, draining abscess Narrative Course The patient has areas of draining abscesses on both lower legs. I opened the worst one on the left posterior knee area and only a minimal amount of pus was obtained for a culture. The patient is successful with his soaking in draining these lesions. He states that he has in the past had successful resolution with Bactrim DS. He will be given a 10 day course along with 1 refill of Bactrim. He cannot afford any medications, he knows that Bactrim is free. Diagnosis Primary Impression: Abscess of leg, left Additional Impression: Abscess of right leg Additional Instructions: As we discussed, soaking the legs is an excellent idea to open up these lesions and help them drain. If you can follow-up with a primary care physician this would twice a day oh. We cannot give you adequate follow-up care here in the emergency department. Med/Other Pt SpecificInfo: Prescription(s) given Scripts Sulfamethoxazole-Trimethoprim (Bactrim DS) 800-160 Mg Tab 1 TAB PO BID for Infection, #20 TAB 0 Refills Prov: Remington Harden MD 08/01/17 Disposition: 01 DISCHARGE HOME Condition: Stable Remington Harden MD Aug 01, 2017 01:25
[2017-08-01] MEDS ORDERED: SULFAMETHOXAZOLE-TRIMETHOPRIM DS 800-160 MG TAB PO ONE (01:30)
== END 2017-08-01 01:35 | disposition home or self-care (01) ==
LOC: PHED 00:32
DX: L02.416 Cutaneous abscess of left lower limb (principal); L02.415 Cutaneous abscess of right lower limb; B95.8 Unspecified staphylococcus as the cause of diseases classified elsewhere; E11.9 Type 2 diabetes mellitus without complications; Z79.4 Long term (current) use of insulin
CPT/HCPCS: 10060; 86403; 87070; 87186

== ENCOUNTER 2017-12-10 09:28 | Inpatient (IN) | payer SELFPAY ==
[~2017-12-10] VITALS: Ht 188 cm; Wt 135.8 kg
[2017-12-10] VITALS (7 sets, daily range): BP systolic 119–179; BP diastolic 64–102; PULSE 91–98; RESP 18–20; TEMP 97.7–100.6; O2SAT 93–99
[~2017-12-10 09:28] MED LIST changes: +BACT800T5 PO; -CLIN300C5 PO; -DOXY100C PO; -TRAM50TA PO; -ZOFR4TAB3 SL
[2017-12-10] MEDS ORDERED: VANCOMYCIN INJ 1,000 MG in SODIUM CHLOR 0.9% 250 ML INJ 250 ML IV STA (09:59)
[2017-12-10] MEDS ORDERED: CLINDAMYCIN INJ 900 MG in SODIUM CHLORIDE 0.9% INJ 100 ML IV STA (09:59)
[2017-12-10] MEDS ORDERED: ONDANSETRON HCL 4 MG/2 ML VIAL IV PUSH ONE (10:00)
[2017-12-10] MEDS ORDERED: MORPHINE SULFATE 4 MG/ML INJ IV PUSH ONE ×2 (10:00→13:30)
[2017-12-10 10:51] LABS: AUTOMATED NEUTROPHIL # 9.4 TH/MM3 (1.8-7.7); BASOPHIL # 0.2 TH/MM3 (0-0.2); BASOPHIL % 1.6 % (0.0-2.0); EOSINOPHIL % 0.4 % (0.0-4.0); HEMATOCRIT 42.6 % (39.0-51.0); HEMOGLOBIN 13.7 GM/DL (13.0-17.0); LYMPH % 10.3 % (9.0-44.0); LYMPHOCYTE # 1.2 TH/MM3 (1.0-4.8); MEAN CELL VOLUME 77.5 FL (80.0-100.0); MEAN CORPUSCULAR HGB CONC 32.2 % (32.0-36.0); MEAN PLATELET VOLUME 8.1 FL (7.0-11.0); MONO % 4.1 % (0.0-8.0); MONOCYTE # 0.5 TH/MM3 (0-0.9); NEUT % 83.6 % (16.0-70.0); PLATELET COUNT 287 TH/MM3 (150-450); RED BLOOD COUNT 5.49 MIL/MM3 (4.50-5.90); RED CELL DISTRIBUTION WIDTH 12.3 % (11.6-17.2); WHITE BLOOD COUNT 11.3 TH/MM3 (4.0-11.0)
--- NOTE | 2017-12-10 10:59 | PD ---
HPI Chief Complaint: Skin Problem Time Seen by Provider: 09:49 Travel History International Travel<30 days: No Contact w/Intl Traveler<30days: No Traveled to known affect area: No History of Present Illness HPI Patient states that last Sunday he inadvertently bumped his front of his right lower leg against something, he is not sure of what it was. But over that period of time it started to swell and redness started to form. By today he has developed redness over the right lower extremity as well as redness all around most of his leg. Patient denies any alleviating or aggravating factors. Patient denies any associated factors such as nausea vomiting diarrhea, fever , head pain neck pain chest pain back pain or abdominal pain. Patient has a history of allergy to Keflex, erythromycin, penicillin amongst other pain medications as well such as codeine and hydrocodone. Patient is former IVDA, has previous past medical history significant for seizure, hypertension, diabetes, kidney stones, bladder cancer, appendectomy. PFSH Past Medical History Arthritis: Yes Asthma: No Autoimmune Disease: No Blood Disorders: No Anxiety: No Depression: No Cancer: Yes Cardiovascular Problems: Yes (HTN) High Cholesterol: No Chemotherapy: Yes (2015) Chest Pain: No Congestive Heart Failure: No COPD: No Cerebrovascular Accident: Yes Diabetes: Yes (should be, no insurance) Patient Takes Glucophage: No Diminished Hearing: No Endocrine: No Gastrointestinal Disorders: No Genitourinary: Yes (BLADDER CANCER) Headaches: Yes Hepatitis: Yes (HEPATITIS C) Hiatal Hernia: No Heparin Induced Thrombocytopen: No Hypertension: Yes Immune Disorder: No Implanted Vascular Access Dvce: Yes Kidney Stones: Yes Musculoskeletal: Yes (LOWER BACK DISC PROBLEM, ARTHRITIS) Neurologic: Yes (SEIZURES) Psychiatric: No Reproductive: No Respiratory: Yes (SLEEP APNEA) Migraines: No Radiation Therapy: Yes (2013) Renal Failure: No Seizures: Yes (HEAD INJURY) Sickle Cell Disease: No Sleep Apnea: Yes Thyroid Disease: No Past Surgical History Abdominal Surgery: Yes (APPENDECTOMY) AICD: No Appendectomy: Yes Arteriovenous Shunt: No Body Medical Devices: plate in right ankle Cardiac Surgery: No Ear Surgery: No Endocrine Surgery: No Eye Surgery: No Genitourinary Surgery: Yes (9 SURGERIES ON BLADDER cancer ) Gynecologic Surgery: No Hysterectomy: Yes Insulin Pump: No Joint Replacement: No Neurologic Surgery: No Oral Surgery: No Pacemaker: No Thoracic Surgery: No Other Surgery: Yes (appendectomy) Social History Alcohol Use: No Tobacco Use: No (quit 2006) 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) Allergies-Medications (Allergen,Severity, Reaction): Coded Allergies: carbamazepine (Verified Allergy, Severe, HIVES, 12/10/17) cephalexin (Verified Allergy, Severe, Rash, 12/10/17) erythromycin base (Verified Allergy, Severe, RASH, 12/10/17) penicillin G (Verified Allergy, Severe, RASH, 12/10/17) phenytoin (Verified Allergy, Severe, RASH, 12/10/17) hydrocodone (Verified Allergy, Unknown, HIVES, 12/10/17) acetaminophen (Verified Adverse Reaction, Severe, "UPSETS HIS STOMACH", ) ALLERGIC TO CODEINE NOT THE ACETAMINOPHEN codeine (Verified Adverse Reaction, Severe, "UPSETS HIS STOMACH", 12/10/17) ALLERGIC TO CODEINE NOT THE ACETAMINOPHEN *MDRO Multi-Drug Resistant Organism (Verified Adverse Reaction, Unknown, ) 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 Review of Systems General / Constitutional: No: Fever Eyes: No: Visual changes HENT: No: Headaches Cardiovascular: No: Chest Pain or Discomfort Respiratory: No: Shortness of Breath Gastrointestinal: No: Abdominal Pain Genitourinary: No: Dysuria Musculoskeletal: No: Pain Skin: Positive Lesions Neurologic: No: Weakness Psychiatric: No: Depression Endocrine: No: Polydipsia Hematologic/Lymphatic: No: Easy Bruising Physical Exam Narrative GENERAL: SKIN: Warm and dry. HEAD: Atraumatic. Normocephalic. EYES: Pupils equal and round. No scleral icterus. No injection or drainage. ENT: No nasal bleeding or discharge. Mucous membranes pink and moist. NECK: Trachea midline. No JVD. CARDIOVASCULAR: Regular rate and rhythm. RESPIRATORY: No accessory muscle use. Clear to auscultation. Breath sounds equal bilaterally. GASTROINTESTINAL: Abdomen soft, non-tender, nondistended. MUSCULOSKELETAL: Extremities without clubbing, cyanosis, or edema. No obvious deformities. NEUROLOGICAL: Awake and alert. No obvious cranial nerve deficits. Motor grossly within normal limits. Five out of 5 muscle strength in the arms and legs. Normal speech. PSYCHIATRIC: Appropriate mood and affect; insight and judgment normal. Data Data Last Documented VS Vital Signs Date Time Temp Pulse Resp B/P (MAP) Pulse Ox O2 Delivery O2 Flow Rate FiO2 12/10/17 09:31 97.7 97 18 148/93 (111) 99 Orders Orders Us Leg Venous Doppler (12/10/17 09:59) Complete Blood Count With Diff (12/10/17 09:59) Comprehensive Metabolic Panel (12/10/17 09:59) Prothrombin Time / Inr (Pt) (12/10/17 09:59) Act Partial Throm Time (Ptt) (12/10/17 09:59) Blood Culture (12/10/17 09:59) Blood Gas Venous Ph (12/10/17 09:59) Wound Culture And Gram Stain (12/10/17 09:59) Iv Access Insert/Monitor (12/10/17 09:59) Ecg Monitoring (12/10/17 09:59) Oximetry (12/10/17 09:59) Clindamycin Inj (Cleocin Inj) (12/10/17 09:59) Vancomycin Inj (Vancomycin Inj) (12/10/17 09:59) Morphine Inj (Morphine Inj) (12/10/17 10:00) Ondansetron Inj (Zofran Inj) (12/10/17 10:00) Labs Laboratory Tests Test 12/10/17 10:35 12/10/17 10:40 Venous Blood pH 7.45 White Blood Count 11.3 TH/MM3 Red Blood Count 5.49 MIL/MM3 Hemoglobin 13.7 GM/DL Hematocrit 42.6 % Mean Corpuscular Volume 77.5 FL Mean Corpuscular Hemoglobin 25.0 PG Mean Corpuscular Hemoglobin Concent 32.2 % Red Cell Distribution Width 12.3 % Platelet Count 287 TH/MM3 Mean Platelet Volume 8.1 FL Neutrophils (%) (Auto) 83.6 % Lymphocytes (%) (Auto) 10.3 % Monocytes (%) (Auto) 4.1 % Eosinophils (%) (Auto) 0.4 % Basophils (%) (Auto) 1.6 % Neutrophils # (Auto) 9.4 TH/MM3 Lymphocytes # (Auto) 1.2 TH/MM3 Monocytes # (Auto) 0.5 TH/MM3 Eosinophils # (Auto) 0.0 TH/MM3 Basophils # (Auto) 0.2 TH/MM3 CBC Comment AUTO DIFF Differential Comment AUTO DIFF CONFIRMED Platelet Estimate NORMAL Platelet Morphology Comment NORMAL Prothrombin Time 10.3 SEC Prothromb Time International Ratio 1.0 RATIO Activated Partial Thromboplast Time 21.9 SEC Blood Urea Nitrogen 7 MG/DL Creatinine 0.59 MG/DL Random Glucose 341 MG/DL Total Protein 8.4 GM/DL Albumin 2.8 GM/DL Calcium Level 8.7 MG/DL Alkaline Phosphatase 101 U/L Aspartate Amino Transf (AST/SGOT) 27 U/L Alanine Aminotransferase (ALT/SGPT) 62 U/L Total Bilirubin 0.5 MG/DL Sodium Level 135 MEQ/L Potassium Level 3.6 MEQ/L Chloride Level 100 MEQ/L Carbon Dioxide Level 26.0 MEQ/L Anion Gap 9 MEQ/L Estimat Glomerular Filtration Rate 149 ML/MIN [facility] Medical Decision Making Medical Screen Exam Complete: Yes Emergency Medical Condition: Yes Medical Record Reviewed: Yes Differential Diagnosis Cellulitis versus abscess versus DVT Narrative Course Lower extremity ultrasound is negative for any DVT, but it does show a 4 cm right inguinal lymphadenopathy CBC shows no major leukocytosis however there is a left shift neutrophilia of 84 %, no anemia, and normal platelet count. Venous blood gas pH 7.45 Coagulation profile within normal limits Chemistry shows normal electrolytes except for hyperglycemia 341, normal liver functions, normal kidney functions. Critical Care Narrative CRITICAL CARE NOTE: With evaluation of the patient, labs, EKG, receipt of radiologic studies, administration of medications, reevaluation the patient and discussion of the patient with the admitting physicians, the total critical care time was [30] minutes. Time to perform other separately billable procedures was not included in the critical care time. Procedures Procedure Narrative After the risks and benefits were discussed the following procedure was performed: CENTRAL VENOUS LINE: The site was prepped with Betadine and sterilely draped. It was infiltrated with 1% lidocaine plain. The deep vein was cannulated using normal Seldinger technique. A central line was placed in the [left subclavian] site and secured with simple interrupted suture. The site was sterilely dressed. The patient tolerated the procedure well. Diagnosis Primary Impression: Right lower extremity cellulitis Additional Impression: Uncontrolled diabetic without DKA Admitting Information Admitting Physician Requests: Admit Yogesh Parker MD Dec 10, 2017 10:59
[2017-12-10 11:07] LABS: CHLORIDE 100 MEQ/L (98-107); SODIUM (NA) 135 MEQ/L (136-145)
[2017-12-10 11:10] LABS: CALCIUM 8.7 MG/DL (8.5-10.1)
[2017-12-10 11:11] LABS: ALBUMIN 2.8 GM/DL (3.4-5.0); BLOOD UREA NITROGEN 7 MG/DL (7-18); GLUCOSE,RANDOM 341 MG/DL (74-106); PROTHROMBIN TIME - PATIENT 10.3 SEC (9.8-11.6)
[2017-12-10 11:13] LABS: ALT (GPT) 62 U/L (12-78)
[2017-12-10 11:14] LABS: AST (GOT) 27 U/L (15-37); CREATININE 0.59 MG/DL (0.60-1.30); GLOMERULAR FILTRATION RATE 149 ML/MIN (>89)
[2017-12-10 11:15] LABS: TOTAL BILIRUBIN ADULT 0.5 MG/DL (0.2-1.0); TOTAL PROTEIN 8.4 GM/DL (6.4-8.2)
--- NOTE | 2017-12-10 11:15 | RADRPT ---
EXAM DATE/TIME: 12/10/2017 10:53 [facility] COMPARISON: No previous studies available for comparison. INDICATIONS : Right leg swelling. MEDICAL HISTORY : Carcinoma, bladder. Renal calculi. Osteoarthritis. Seizures. Head trauma. HTN. Sleep apnea. UTI. A rthritis. Diabetes. Previous IV drug user. Hep C. MRSA. SURGICAL HISTORY : Appendectomy. Hysterectomy. Bladder surgeries x9 for surgery. Chemotherapy. Left ankle surgery. Rig ht ankle with screws and plates. Left wrist surgery. Radiation therapy. ENCOUNTER: Initial ACUITY: 4 - 6 days PAIN SCORE: 9/10 LOCATION: Right leg. TECHNIQUE: Venous ultrasound of the leg was performed from the inguinal ligament to the proximal calf. Real-pal e, color Doppler and spectral tracing, compression and augmentation techniques were used. FINDINGS: Multiple large lymph nodes are seen in the right inguinal region. The largest measures 4.6 cm. There is normal compressibility of the deep venous system from the inguinal region to the proximal ca lf. No echogenic clot is seen in the lumen of the common femoral, femoral, popliteal, and posterior tibial veins. There is a normal response of the venous system to proximal and distal augmentation an d respiration. CONCLUSION: 4 cm inguinal nodes Negative for deep venous thrombosis. Matt Lu MD FACR on December 10, 2017 at 11:12 Board Certified Radiologist. This report was verified electronically.
[2017-12-10 11:16] LABS: ALKALINE PHOSPHATASE 101 U/L (45-117)
--- NOTE | 2017-12-10 12:18 | RADRPT ---
EXAM DATE/TIME: 12/10/2017 11:59 [facility] COMPARISON: CHEST SINGLE AP, April 22, 2017, 11:22. INDICATIONS : Post central line placement. MEDICAL HISTORY : Carcinoma, bladder. Renal calculi. Osteoarthritis. Seizures. Head trauma. HTN. SURGICAL HISTORY : Appendectomy. Hysterectomy. Bladder surgeries x9 for surgery. ENCOUNTER: Initial ACUITY: 1 day PAIN SCORE: 0/10 LOCATION: Bilateral chest FINDINGS: A single view of the chest demonstrates the lungs to be symmetrically aerated without evidence of mas s, infiltrate or effusion. The cardiomediastinal contours are unremarkable. Osseous structures are intact. CONCLUSION: No acute disease. Matt Lu MD FACR on December 10, 2017 at 12:16 Board Certified Radiologist. This report was verified electronically.
[2017-12-10] MEDS ORDERED: METOCLOPRAMIDE HCL 10 MG/2 ML VIAL IV PUSH ONE (13:30)
[2017-12-10] MEDS ORDERED: DEXTROSE 50% IN WATER 50 ML VIAL(D50) IV PUSH PRN (14:15)
[2017-12-10] MEDS ORDERED: GLUCAGON 1 MG/ML VIAL OTHER PRN (14:15)
[2017-12-10] MEDS ORDERED: MAGNESIUM HYDROXIDE SUSP 30 ML CUP PO PRN (14:15)
[2017-12-10] MEDS ORDERED: NALOXONE HCL 0.4 MG/ML AMP IV PUSH PRN (14:15)
[2017-12-10] MEDS ORDERED: ONDANSETRON HCL 4 MG/2 ML VIAL IVP PRN (14:15)
[2017-12-10] MEDS ORDERED: VANCOMYCIN INJ 1,000 MG in SODIUM CHLOR 0.9% 250 ML INJ 250 ML IV SCH (14:45)
--- NOTE | 2017-12-10 14:52 | HHI.HP ---
HPI Service [facility] Primary Care Physician No Primary Care Physician Admission Diagnosis RLE CELLULITIS (DIFFICULT ACCESS S/P LEFT SUBCLAVIAN CENTRAL LINE) Diagnoses: Chief Complaint: Right leg swelling and pain Travel History International Travel<30 Days: No Contact w/Intl Traveler <30 Da: No Traveled to Known Affected Are: No Sepsis Criteria SIRS Criteria (2 or more): Heart rate over 90 History of Present Illness This patient is a 47-year-old gentleman with a history of diabetes who had a week of severe and progressive right lower extremity discomfort and pain and swelling. He says he hit his ankle in the anterior aspect and noted a lump developed but then over the last 48 hours his leg is gotten red and swollen and there is pink dry running up his knee. The patient says he has had a history of ankle surgery in the past on that side but has not had a problem. The surgery was over 20 years ago and he has arthritis at times but never has had any problems specifically with that. He denies any fevers or chills. He has come to the emergency room [place] by his mom says that he has not been able to put any pressure on his leg and is been doing very poorly since the infection appeared to get worse. Patient has been given some vancomycin and some pain medication and the pain has improved somewhat. There is still quite a bit of swelling. For the reason the patient is admitted to the hospital Review of Systems Constitutional: DENIES: Diaphoretic episodes, Fatigue, Fever, Weight gain, Weight loss, Chills, Dizziness, Change in appetite, Night Sweats Endocrine: DENIES: Heat/cold intolerance, Polydipsia, Polyuria, Polyphagia Eyes: DENIES: Blurred vision, Diplopia, Eye inflammation, Eye pain, Vision loss , Photosensitivity, Double Vision Ears, nose, mouth, throat: DENIES: Tinnitus, Hearing loss, Vertigo, Nasal discharge, Oral lesions, Throat pain, Hoarseness, Ear Pain, Running Nose, Epistaxis, Sinus Pain, Toothache, Odynophagia Respiratory: DENIES: Apneas, Cough, Snoring, Wheezing, Hemoptysis, Sputum production, Shortness of breath Cardiovascular: DENIES: Chest pain, Palpitations, Syncope, Dyspnea on Exertion , PND, Lower Extremity Edema, Orthopnea, Claudication Gastrointestinal: DENIES: Abdominal pain, Black stools, Bloody stools, Constipation, Diarrhea, Nausea, Vomiting, Difficulty Swallowing, Anorexia Genitourinary: DENIES: Sexual dysfunction, Urinary frequency, Urinary incontinence, Urgency, Hematuria, Dysuria, Nocturia, Penile Discharge, Testicular Pain, Testicular Swelling Musculoskeletal: COMPLAINS OF: Joint pain, Joint Swelling, Back pain Integumentary: DENIES: Abnormal pigmentation, Nail changes, Pruritus, Rash Hematologic/lymphatic: DENIES: Bruising, Lymphadenopathy Immunologic/allergic: DENIES: Eczema, Urticaria Neurologic: DENIES: Abnormal gait, Headache, Localized weakness, Paresthesias, Seizures, Speech Problems, Tremor, Poor Balance Psychiatric: DENIES: Anxiety, Confusion, Mood changes, Depression, Hallucinations, Agitation, Suicidal Ideation, Homicidal Ideation, Delusions Except as stated in HPI: all other systems reviewed are Neg Past Family Social History Past Medical History Diabetes Chronic pain management Past Surgical History Multiple bladder surgeries for cancer Appendectomy Right ankle surgery several decades ago Reported Medications Reviewed in the EMR Allergies: Coded Allergies: carbamazepine (Verified Allergy, Severe, HIVES, 12/10/17) cephalexin (Verified Allergy, Severe, Rash, 12/10/17) erythromycin base (Verified Allergy, Severe, RASH, 12/10/17) penicillin G (Verified Allergy, Severe, RASH, 12/10/17) phenytoin (Verified Allergy, Severe, RASH, 12/10/17) hydrocodone (Verified Allergy, Unknown, HIVES, 12/10/17) acetaminophen (Verified Adverse Reaction, Severe, "UPSETS HIS STOMACH", ) ALLERGIC TO CODEINE NOT THE ACETAMINOPHEN codeine (Verified Adverse Reaction, Severe, "UPSETS HIS STOMACH", 12/10/17) ALLERGIC TO CODEINE NOT THE ACETAMINOPHEN *MDRO Multi-Drug Resistant Organism (Verified Adverse Reaction, Unknown, ) 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 Ordered Medications Reviewed in the EMR Family History Mother has diabetes Social History No tobacco or alcohol dependency, previous IV drug use but has been sober for a year Physical Exam Vital Signs Vital Signs Date Time Temp Pulse Resp B/P (MAP) Pulse Ox O2 Delivery O2 Flow Rate FiO2 12/10/17 12:51 92 18 138/85 (102) 97 Room Air 12/10/17 11:35 95 18 119/64 (82) 97 Room Air 12/10/17 11:10 Room Air 12/10/17 09:31 97.7 97 18 148/93 (111) 99 Physical Exam GENERAL: This is a well-nourished, obese but well-developed gentleman complaining of abdominal pain SKIN: Multiple tattoos, old sites of IV drug use HEAD: Atraumatic. Normocephalic. No temporal or scalp tenderness. EYES: Pupils equal round and reactive. Extraocular motions intact. No scleral icterus. No injection or drainage. ENT: Nose without bleeding, purulent drainage or septal hematoma. Throat without erythema, tonsillar hypertrophy or exudate. Uvula midline. Airway patent. NECK: Trachea midline. No JVD or lymphadenopathy. Supple, nontender, no meningeal signs. CARDIOVASCULAR: Regular rate and rhythm without murmurs, gallops, or rubs. RESPIRATORY: Clear to auscultation. Breath sounds equal bilaterally. No wheezes , rales, or rhonchi. GASTROINTESTINAL: Abdomen soft, non-tender, nondistended. No hepato-splenomegaly , or palpable masses. No guarding. MUSCULOSKELETAL: Right lower extremity is edematous with +3 edema, the anterior leg is erythematous with fluctuant area at the ankle and with lymphangitic spread into the upper extremity, other 3 extremities without clubbing, cyanosis , or edema. No joint tenderness, effusion, or edema noted. No calf tenderness. Negative Homans sign bilaterally. NEUROLOGICAL: Awake and alert. Cranial nerves II through XII intact. Motor and sensory grossly within normal limits. Five out of 5 muscle strength in all muscle groups. Normal speech. Laboratory Laboratory Tests Test 12/10/17 10:35 12/10/17 10:40 Venous Blood pH 7.45 White Blood Count 11.3 Red Blood Count 5.49 Hemoglobin 13.7 Hematocrit 42.6 Mean Corpuscular Volume 77.5 Mean Corpuscular Hemoglobin 25.0 Mean Corpuscular Hemoglobin Concent 32.2 Red Cell Distribution Width 12.3 Platelet Count 287 Mean Platelet Volume 8.1 Neutrophils (%) (Auto) 83.6 Lymphocytes (%) (Auto) 10.3 Monocytes (%) (Auto) 4.1 Eosinophils (%) (Auto) 0.4 Basophils (%) (Auto) 1.6 Neutrophils # (Auto) 9.4 Lymphocytes # (Auto) 1.2 Monocytes # (Auto) 0.5 Eosinophils # (Auto) 0.0 Basophils # (Auto) 0.2 CBC Comment AUTO DIFF Differential Comment AUTO DIFF CONFIRMED Platelet Estimate NORMAL Platelet Morphology Comment NORMAL Prothrombin Time 10.3 Prothromb Time International Ratio 1.0 Activated Partial Thromboplast Time 21.9 Blood Urea Nitrogen 7 Creatinine 0.59 Random Glucose 341 Total Protein 8.4 Albumin 2.8 Calcium Level 8.7 Alkaline Phosphatase 101 Aspartate Amino Transf (AST/SGOT) 27 Alanine Aminotransferase (ALT/SGPT) 62 Total Bilirubin 0.5 Sodium Level 135 Potassium Level 3.6 Chloride Level 100 Carbon Dioxide Level 26.0 Anion Gap 9 Estimat Glomerular Filtration Rate 149 Date/Time Source Procedure Growth Status 12/10/17 10:40 Blood Peripheral Aerobic Blood Culture Pending Received 12/10/17 10:40 Blood Peripheral Anaerobic Blood Culture Pending Received 12/10/17 10:30 Wound Leg Gram Stain Pending Received 12/10/17 10:30 Wound Leg Wound Culture Pending Received Result Diagram: 12/10/17 1040 12/10/17 1040 Imaging Last Impressions Chest X-Ray 12/10/17 1143 Signed Impressions: Service Date/Time: Sunday, December 10, 2017 11:59 - CONCLUSION: No acute disease. Matt Lu MD FACR Lower Extremity Ultrasound 12/10/17 0959 Signed Impressions: Service Date/Time: Sunday, December 10, 2017 10:53 - CONCLUSION: 4 cm inguinal nodes Negative for deep venous thrombosis. Matt Lu MD FACR Septic Shock Reassessment Septic shock perfusion: reassessment completed Caprini VTE Risk Assessment Caprini VTE Risk Assessment: Mod/High Risk (score >= 2) Caprini Risk Assessment Model Point Value = 1 Point Value = 2 Point Value = 3 Point Value = 5 Age 41-60 Minor surgery BMI > 25 kg/m2 Swollen legs Varicose veins or History of unexplained or recurrent spontaneous Oral contraceptives or hormone replacement Sepsis (< 1 month) Serious lung disease, including pneumonia (< 1 month) Abnormal pulmonary function Acute myocardial infarction Congestive heart failure (< 1 month) History of inflammatory bowel disease Medical patient at bed rest Age 61-74 Arthroscopic surgery Major open surgery (> 45 min) Laparoscopic surgery (> 45 min) Malignancy Confined to bed (> 72 hours) Immobilizing plaster cast Central venous access Age >= 75 History of VTE Family history of VTE Factor V Leiden Prothrombin [id number] Lupus anticoagulant Anticardiolipin antibodies Elevated serum homocysteine Heparin-induced thrombocytopenia Other congenital or acquired thrombophilia Stroke (< 1 month) Elective arthroplasty Hip, pelvis, or leg fracture Acute spinal cord injury (< 1 month) Prophylaxis Regimen Total Risk Factor Score Risk Level Prophylaxis Regimen 0-1 Low Early ambulation 2 Moderate Order ONE of the following: *Sequential Compression Device (SCD) *Heparin 5000 units SQ BID 3-4 Higher Order ONE of the following medications: *Heparin 5000 units SQ TID *Enoxaparin/Lovenox 40 mg SQ daily (WT < 150 kg, CrCl > 30 mL/min) *Enoxaparin/Lovenox 30 mg SQ daily (WT < 150 kg, CrCl > 10-29 mL/min) *Enoxaparin/Lovenox 30 mg SQ BID (WT < 150 kg, CrCl > 30 mL/min) AND/OR *Sequential Compression Device (SCD) 5 or more Highest Order ONE of the following medications: *Heparin 5000 units SQ TID (Preferred with Epidurals) *Enoxaparin/Lovenox 40 mg SQ daily (WT < 150 kg, CrCl > 30 mL/min) *Enoxaparin/Lovenox 30 mg SQ daily (WT < 150 kg, CrCl > 10-29 mL/min) *Enoxaparin/Lovenox 30 mg SQ BID (WT < 150 kg, CrCl > 30 mL/min) AND *Sequential Compression Device (SCD) Assessment and Plan Problem List: (1) Cellulitis ICD Code: L03.90 - Cellulitis Status: Acute Plan: There is a clinical concern for abscess and the patient will need to be admitted to the hospital as IV antibiotics are most appropriate for the size of this infection and the concern for lymphangitis. We will continue with IV antibiotics, follow-up MRI to rule out abscess if able (hardware in ankle) The patient will need surgical treatment Continue IV narcotics for pain (denies allergy to dilaudid) (2) Chronic lower back pain ICD Code: M54.5 - Chronic low back pain; G89.29 - Other chronic pain Status: Chronic Plan: We will continue with patient's home medications for pain (3) Diabetes mellitus ICD Code: E11.9 - Type 2 diabetes mellitus without complications Status: Chronic Plan: Continue with diabetic sliding scale Continue with diabetic diet and adjust insulin as needed Hold home metformin Code Status Full code Physician Certification 2 Midnight Certification Type: Admission for Inpatient Services Order for Inpatient Services The services are ordered in accordance with Medicare regulations or non- Medicare payer requirements, as applicable. In the case of services not specified as inpatient-only, they are appropriately provided as inpatient services in accordance with the 2-midnight benchmark. Estimated LOS (days): 3 3 days is the estimated time the patient will need to remain in the hospital, assuming treatment plan goals are met and no additional complications. Post-Hospital Plan: Home Dalia Husain MD Dec 10, 2017 14:52
[2017-12-10] MEDS ORDERED: Vancomycin Consult Pharmacy 1 EA OTHER SCH (15:00)
[2017-12-10] MEDS ORDERED: HYDROmorphone HCL PF 2 MG/ML VIAL IVS ONE (15:00)
[2017-12-10] MEDS: AZTREONAM INJ 1,000 MG in SODIUM CHLORIDE 0.9% INJ 100 ML IV SCH ×2 (16:18→23:05)
--- NOTE | 2017-12-10 16:39 | RADRPT ---
EXAM DATE/TIME: 12/10/2017 15:57 [facility] COMPARISON: ANKLE RIGHT COMPLETE ([id number]), March 11, 2017, 11:49. INDICATIONS : Abscess. Lower right leg red and swollen. MEDICAL HISTORY : Diabetes mellitus type 1. Hepatitis C. Hypertension. SURGICAL HISTORY : Appendectomy. Right ankle. ENCOUNTER: Initial ACUITY: 1 week PAIN SCORE: 7/10 LOCATION: Right leg TECHNIQUE: Multiplanar multisequence MRI examination of the lower leg was performed without contrast. FINDINGS: Extensive artifact is present from the plate on the fibula. This obscures fine detail about the lowe r third of the leg. There is generalized edema in the subcutaneous tissues without defined abscess. Osteo myelitis or soft tissue abscess cannot be excluded in the areas obscured by artifact which is the distal half of the lower extremity.. CONCLUSION: Negative for abscess. MRI with metal implants is impossible to interpret because of artifact. Significant portion of the leg is not evaluated. Matt Lu MD FACR on December 10, 2017 at 16:33 Board Certified Radiologist. This report was verified electronically.
[2017-12-10] MEDS: HYDROmorphone HCL 2 MG TAB PO PRN ×2 (17:19→23:05)
[2017-12-10] MEDS: INSULIN ASPART SUPPLEMENTAL SCALE SQ SCH ×2 (17:39→20:33)
[2017-12-10] MEDS: IBUPROFEN 400 MG TAB PO PRN ×2 (18:00→23:06)
[2017-12-10] MEDS: VANCOMYCIN INJ 2,200 MG in SODIUM CHLORID 0.9% 500 ML INJ 500 ML IV SCH (18:01)
[2017-12-10 18:13] LABS: % SATURATION IRON PROFILE 7.2 % (20-50); IRON (FE) 21 MCG/DL (65-175); TOTAL IRON BINDING CAPACITY 293 MCG/DL (250-450)
[2017-12-10] MEDS: SODIUM CHLORIDE 0.9% FLUSH 10 ML FLUSH IV FLUSH SCH (20:30)
[2017-12-10] MEDS: INSULIN DETEMIR 100 UNITS/ML VIAL SQ SCH (20:34)
[2017-12-10] MEDS: DOCUSATE SODIUM 50 MG/SENNA 8.6 MG TAB PO SCH (20:35)
[2017-12-10] MEDS: HEPARIN SODIUM - SQ 10,000 UNITS/ML VIAL SQ SCH (20:36)
[2017-12-10] MEDS ORDERED: MELATONIN 5 MG TAB PO ONE (21:00)
[2017-12-10] MEDS: HYDROmorphone HCL PF 2 MG/ML VIAL IV PUSH PRN (21:28)
[2017-12-10] MEDS: SODIUM CHLORIDE 0.9% FLUSH 10 ML FLUSH IV FLUSH PRN ×2 (21:28→23:06)
[2017-12-10 22:05] LABS: HEMOGLOBIN A1C 12.7 % (4.3-6.0)
[2017-12-11] VITALS: BP 151/95; PULSE 92; RESP 17; TEMP 99.8; O2SAT 95
[2017-12-11] MEDS: HYDROmorphone HCL PF 2 MG/ML VIAL IV PUSH PRN ×3 (01:18→09:05)
[2017-12-11] MEDS: VANCOMYCIN INJ 2,200 MG in SODIUM CHLORID 0.9% 500 ML INJ 500 ML IV SCH ×3 (01:18→19:07)
[2017-12-11] MEDS: SODIUM CHLORIDE 0.9% FLUSH 10 ML FLUSH IV FLUSH PRN ×3 (01:18→06:44)
[2017-12-11 04:00] VITALS: BP 129/80; PULSE 76; RESP 17; TEMP 99.5; O2SAT 93
[2017-12-11] MEDS: HYDROmorphone HCL 2 MG TAB PO PRN ×4 (05:33→23:19)
[2017-12-11] MEDS: HEPARIN SODIUM - SQ 10,000 UNITS/ML VIAL SQ SCH ×3 (05:34→21:07)
[2017-12-11] MEDS: AZTREONAM INJ 1,000 MG in SODIUM CHLORIDE 0.9% INJ 100 ML IV SCH ×3 (06:45→23:05)
[2017-12-11 07:38] LABS: BASOPHIL % 0.4 % (0.0-2.0); EOSINOPHIL # 0.1 TH/MM3 (0-0.4); HEMATOCRIT 35.5 % (39.0-51.0); HEMOGLOBIN 11.7 GM/DL (13.0-17.0); LYMPH % 20.3 % (9.0-44.0); LYMPHOCYTE # 1.5 TH/MM3 (1.0-4.8); MEAN CELL VOLUME 77.8 FL (80.0-100.0); MEAN CORPUSCULAR HEMOGLOBIN 25.6 PG (27.0-34.0); MEAN PLATELET VOLUME 8.2 FL (7.0-11.0); MONO % 9.6 % (0.0-8.0); MONOCYTE # 0.7 TH/MM3 (0-0.9); NEUT % 68.7 % (16.0-70.0); PLATELET COUNT 232 TH/MM3 (150-450); RED BLOOD COUNT 4.57 MIL/MM3 (4.50-5.90); RED CELL DISTRIBUTION WIDTH 12.3 % (11.6-17.2); WHITE BLOOD COUNT 7.3 TH/MM3 (4.0-11.0)
[2017-12-11 07:47] LABS: CALCIUM 8.3 MG/DL (8.5-10.1)
[2017-12-11 07:48] LABS: BICARBONATE 29.3 MEQ/L (21.0-32.0)
[2017-12-11 07:51] LABS: CREATININE 0.47 MG/DL (0.60-1.30)
[2017-12-11 08:00] VITALS: BP 138/83; PULSE 68; RESP 18; TEMP 97.9; O2SAT 94
[2017-12-11] MEDS: DOCUSATE SODIUM 50 MG/SENNA 8.6 MG TAB PO SCH ×2 (09:10→21:07)
[2017-12-11] MEDS: SODIUM CHLORIDE 0.9% FLUSH 10 ML FLUSH IV FLUSH SCH ×2 (09:10→21:08)
[2017-12-11] MEDS: INSULIN ASPART SUPPLEMENTAL SCALE SQ SCH ×4 (09:11→23:06)
[2017-12-11] MEDS: INSULIN DETEMIR 100 UNITS/ML VIAL SQ SCH ×2 (09:11→23:06)
--- NOTE | 2017-12-11 10:08 | HHI.PR ---
Subjective Remarks Follow-up right lower extremity cellulitis, chronic lower back pain and diabetes. Patient seen and examined, lying in bed with complaint of pain. Infectious disease at bedside and updated, wound culture obtained. Pain medications given. MRI reviewed, negative for abscess; metal implants impossible to interpret because of artifact. Will obtain CT for further evaluation, continue to follow. TMAX 100.6 overnight. Denies any abdominal pain , nausea or vomiting or diarrhea. Eating well. Continued on antibiotics. Spoke to patient and mother extensively about outpatient treatment and lack of follow-up. Patient needs to go to community clinic and has been unable to get his medicines since July. Case management consulted for assistance. Objective Vitals Vital Signs Date Time Temp Pulse Resp B/P (MAP) Pulse Ox O2 Delivery O2 Flow Rate FiO2 12/11/17 09:49 18 12/11/17 08:00 97.9 68 18 138/83 (101) 94 12/11/17 04:00 99.5 76 17 129/80 (96) 93 12/11/17 00:00 99.8 92 17 151/95 (113) 95 12/10/17 20:00 100.6 98 19 179/99 (125) 93 12/10/17 18:19 18 12/10/17 16:35 100.2 91 20 157/102 (120) 98 12/10/17 16:20 99.2 96 20 158/89 (112) 12/10/17 16:18 20 12/10/17 16:18 20 12/10/17 14:40 93 18 133/80 (97) 96 Room Air 12/10/17 12:51 92 18 138/85 (102) 97 Room Air 12/10/17 12:36 18 12/10/17 11:35 95 18 119/64 (82) 97 Room Air 12/10/17 11:10 Room Air I/O 12/10/17 12/10/17 12/10/17 12/11/17 12/11/17 12/11/17 07:00 15:00 23:00 07:00 15:00 23:00 Intake Total 356 ml 860 ml 600 ml Output Total 750 ml 1600 ml Balance 356 ml 110 ml -1000 ml Intake Oral 360 ml IV Total 356 ml 500 ml 600 ml Output Urine Total 750 ml 1600 ml # Voids 1 # Bowel Movements 0 Result Diagram: 12/11/17 0645 12/11/17 0645 Imaging Last Impressions Chest X-Ray 12/10/17 1143 Signed Impressions: Service Date/Time: Sunday, December 10, 2017 11:59 - CONCLUSION: No acute disease. Matt Lu MD FACR Lower Extremity Ultrasound 12/10/17 0959 Signed Impressions: Service Date/Time: Sunday, December 10, 2017 10:53 - CONCLUSION: 4 cm inguinal nodes Negative for deep venous thrombosis. Matt Lu MD FACR Lower Extremity MRI 12/10/17 0000 Signed Impressions: Service Date/Time: Sunday, December 10, 2017 15:57 - CONCLUSION: Negative for abscess. MRI with metal implants is impossible to interpret because of artifact. Significant portion of the leg is not evaluated. Matt Lu MD FACR Objective Remarks GENERAL: Well-developed, well-nourished patient. Right lower extremity pain. SKIN: Warm and dry. No rash. HEAD: Normocephalic. Atraumatic. EYES: Pupils equal and round. No scleral icterus. No injection or drainage. ENT: No nasal bleeding or discharge. Mucous membranes pink and moist. NECK: Supple. Trachea midline. CARDIOVASCULAR: Regular rate and rhythm. S1, S2 noted. No murmur appreciated. RESPIRATORY: No accessory muscle use. Clear to auscultation. Breath sounds equal bilaterally. GASTROINTESTINAL: Abdomen soft, non-tender, nondistended. Normoactive bowel sounds x4. MUSCULOSKELETAL: Extremities without clubbing, cyanosis. Right lower extremity with diffuse erythema and swelling. NEUROLOGICAL: Awake and alert. No obvious cranial nerve deficits. Motor grossly within normal limits. 5/5 muscle strength in bilateral upper and lower extremities. Normal speech. PSYCHIATRIC: Appropriate mood and affect; insight and judgment normal. A/P Problem List: (1) Cellulitis ICD Code: L03.90 - Cellulitis Status: Acute Plan: Right lower extremity MRI reviewed showing no abscess. MRI with metal implants is impossible to interpret because of artifact. A CT will be done continue to follow today. Consult placed to orthopedics, appreciate input recommendations regarding previous medal implants. We will continue with IV antibiotics. Continue to monitor for infection. Lactic acid normal. Continue IV narcotics for pain (denies allergy to Dilaudid). Consult placed infectious disease. Appreciate input recommendations. Continue Azactam and Vanco. (2) Chronic lower back pain ICD Code: M54.5 - Chronic low back pain; G89.29 - Other chronic pain Status: Chronic Plan: We will continue with patient's home medications for pain (3) Diabetes mellitus ICD Code: E11.9 - Type 2 diabetes mellitus without complications Status: Chronic Plan: Continue with diabetic sliding scale Continue with diabetic diet and adjust insulin as needed Hold home metformin Hemoglobin A1c 12.7 DVT prophylaxis: Heparin. Ginger Zavala Dec 11, 2017 10:08
[2017-12-11] MEDS ORDERED: HYDROmorphone HCL PF 2 MG/ML VIAL IV PUSH ONE ×3 (11:00→20:30)
--- NOTE | 2017-12-11 11:31 | HHI.PR ---
Addendum to Inpatient Note Additional Information Pt was seen and examined cont hilary morel Dr full note rto follow Jayna Melgoza MD Dec 11, 2017 11:31
--- NOTE | 2017-12-11 11:32 | PD.ID.CON ---
History of Present Illness Service ID Consult Requested By Dr Husain Reason for Consult RLE infx Primary Care Physician No Primary Care Physician Diagnoses: History of Present Illness 47 yo male with remote ORIF of R ankle presented with 1 week of worsening swelling, redness and pain of RLE following hitting He formed few very tender lesiions on the lower palafox and he presented with mild fever and leukocytosis He apparently has similar issue with contralateral leg a year ago MRI was done but because of artifact MRI with metal implants is impossible to interpret because of artifact. Significant portion of the leg is not evaluated. - dw Dr Vásquez CT was ordered and is P because of pt's allergies he was started on vanco, azactam and his fever , leukocytosis improved Review of Systems Except as stated in HPI: all other systems reviewed are Neg Past Family Social History Allergies: Coded Allergies: carbamazepine (Verified Allergy, Severe, HIVES, 12/10/17) cephalexin (Verified Allergy, Severe, Rash, 12/10/17) erythromycin base (Verified Allergy, Severe, RASH, 12/10/17) penicillin G (Verified Allergy, Severe, RASH, 12/10/17) phenytoin (Verified Allergy, Severe, RASH, 12/10/17) hydrocodone (Verified Allergy, Unknown, HIVES, 12/10/17) acetaminophen (Verified Adverse Reaction, Severe, "UPSETS HIS STOMACH", ) ALLERGIC TO CODEINE NOT THE ACETAMINOPHEN codeine (Verified Adverse Reaction, Severe, "UPSETS HIS STOMACH", 12/10/17) ALLERGIC TO CODEINE NOT THE ACETAMINOPHEN *MDRO Multi-Drug Resistant Organism (Verified Adverse Reaction, Unknown, ) 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) Past Medical History Diabetes Chronic pain management Past Surgical History Multiple bladder surgeries for cancer Appendectomy Right ankle surgery several decades ago Active Ordered Medications Reviewed in the EMR: azactam , vancomycin Family History Mother has diabetes Social History No tobacco or alcohol dependency, 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 Physical Exam Vital Signs Vital Signs Date Time Temp Pulse Resp B/P (MAP) Pulse Ox O2 Delivery O2 Flow Rate FiO2 12/11/17 09:49 18 12/11/17 08:00 97.9 68 18 138/83 (101) 94 12/11/17 04:00 99.5 76 17 129/80 (96) 93 3/20/18 00:00 99.8 92 17 151/95 (113) 95 12/10/17 20:00 100.6 98 19 179/99 (125) 93 12/10/17 18:19 18 12/10/17 16:35 100.2 91 20 157/102 (120) 98 12/10/17 16:20 99.2 96 20 158/89 (112) 12/10/17 16:18 20 12/10/17 16:18 20 12/10/17 14:40 93 18 133/80 (97) 96 Room Air 12/10/17 12:51 92 18 138/85 (102) 97 Room Air 12/10/17 12:36 18 12/10/17 11:35 95 18 119/64 (82) 97 Room Air Physical Exam CONSTITUTIONAL/GENERAL: This is a morbidly obese patient, in mild- moderate distress 2/2 apparent distress. TUBES/LINES/DRAINS: SKIN: No jaundice, rashes, or lesions. Skin temperature appropriate. Not diaphoretic. HEAD: Atraumatic. Normocephalic. EYES: Pupils equal and round and reactive. Extraocular motions intact. No scleral icterus. No injection or drainage. Fundi not examined. ENT: Hearing grossly normal. Nose without bleeding or purulent drainage. Throat without visible erythema, exudates, masses, or lesions. NECK: Trachea midline. Supple, nontender. No palpable thyroid enlargement or nodularity. CARDIOVASCULAR: Regular rate and rhythm without murmurs, gallops, or rubs. No JVD. Peripheral pulses symmetric. RESPIRATORY/CHEST: Symmetric, unlabored respirations. Clear to auscultation. Breath sounds equal bilaterally. No wheezes, rales, or rhonchi. GASTROINTESTINAL: Abdomen soft, non-tender, nondistended. No hepato-splenomegaly , or palpable masses. No guarding. Bowel sounds present. GENITOURINARY: Without palpable bladder distension. MUSCULOSKELETAL: Extremities without clubbing, cyanosis, + BLE edema, R>> L On the R ankle he has 3 very tender tense fructuant lesions, one is draining small amount of odorless white pusPromine nt edema, erythema of the extremety to the knee Incision on lateral maleloeus is well healed No joint tenderness or effusion noted. No calf tenderness. No mottling or clubbing. LYMPHATICS: No palpable cervical or supraclavicular adenopathy. + Enlarged non tender R inguinla ling node NEUROLOGICAL: Awake and alert. Motor and sensory grossly within normal limits. Follows commands. Cognitively sharp. Moves all extremities. PSYCHIATRIC: No obvious anxiety/depression. no apparent hallucinations or other psychotic thought process. Laboratory Laboratory Tests Test 12/10/17 14:30 12/11/17 06:45 Lactic Acid Level 1.1 White Blood Count 7.3 Red Blood Count 4.57 Hemoglobin 11.7 Hematocrit 35.5 Mean Corpuscular Volume 77.8 Mean Corpuscular Hemoglobin 25.6 Mean Corpuscular Hemoglobin Concent 33.0 Red Cell Distribution Width 12.3 Platelet Count 232 Mean Platelet Volume 8.2 Neutrophils (%) (Auto) 68.7 Lymphocytes (%) (Auto) 20.3 Monocytes (%) (Auto) 9.6 Eosinophils (%) (Auto) 1.0 Basophils (%) (Auto) 0.4 Neutrophils # (Auto) 5.0 Lymphocytes # (Auto) 1.5 Monocytes # (Auto) 0.7 Eosinophils # (Auto) 0.1 Basophils # (Auto) 0.0 CBC Comment DIFF FINAL Differential Comment Blood Urea Nitrogen 6 Creatinine 0.47 Random Glucose 271 Calcium Level 8.3 Sodium Level 134 Potassium Level 3.5 Chloride Level 100 Carbon Dioxide Level 29.3 Anion Gap 5 Estimat Glomerular Filtration Rate 193 Date/Time Source Procedure Growth Status 12/10/17 10:40 Blood Peripheral Aerobic Blood Culture - Preliminary NO GROWTH IN 1 DAY Resulted 12/10/17 10:40 Blood Peripheral Anaerobic Blood Culture - Preliminary NO GROWTH IN 1 DAY Resulted 12/10/17 10:30 Wound Leg Gram Stain - Final Resulted 12/10/17 10:30 Wound Leg Wound Culture Pending Resulted Result Diagram: 12/11/17 0645 12/11/17 0645 Imaging Last Impressions Chest X-Ray 12/10/17 1143 Signed Impressions: Service Date/Time: Sunday, December 10, 2017 11:59 - CONCLUSION: No acute disease. Matt Lu MD FACR Lower Extremity Ultrasound 12/10/17 0959 Signed Impressions: Service Date/Time: Sunday, December 10, 2017 10:53 - CONCLUSION: 4 cm inguinal nodes Negative for deep venous thrombosis. Matt Lu MD FACR Lower Extremity MRI 12/10/17 0000 Signed Impressions: Service Date/Time: Sunday, December 10, 2017 15:57 - CONCLUSION: Negative for abscess. MRI with metal implants is impossible to interpret because of artifact. Significant portion of the leg is not evaluated. Matt Lu MD FACR Assessment and Plan Assessment and Plan Abscess phlegmone, cellulitis , R ankle, Unclear if its related to heardware - gen surgery consulted to drain assumed superficial abscess - fu blood and wound clx - add AFB, fungal on top of routine cultures - will f/u CT result - if any relation to hardware noted will consult ortho Discussed Condition With Fahad Josue,Jayna Sotelo MD Dec 11, 2017 11:32
[2017-12-11 12:00] VITALS: BP 149/95; PULSE 74; RESP 19; TEMP 97; O2SAT 98
[2017-12-11] MEDS ORDERED: IOHEXOL 350 MG/ML 10 ML VIAL (for RAD DIAG) IVCONTRAST ONE (13:36)
[2017-12-11] MEDS: IBUPROFEN 400 MG TAB PO PRN (15:18)
[2017-12-11 15:43] VITALS: BP 150/88; PULSE 88; RESP 18; TEMP 101; O2SAT 95
[2017-12-11] MEDS ORDERED: VANCOMYCIN TROUGH ONE (16:45)
[2017-12-11 20:00] VITALS: BP 138/91; PULSE 77; RESP 20; TEMP 98.7; O2SAT 95
[2017-12-11] MEDS: POLYSACCHARIDE IRON COMPLEX 150 MG CAP PO SCH (21:07)
[2017-12-11 22:18] LABS: VANCOMYCIN TROUGH 10.1 MCG/ML (5.0-10.0)
[2017-12-12] VITALS: BP 128/78; PULSE 75; RESP 20; TEMP 100.1; O2SAT 95
[2017-12-12] MEDS: SODIUM CHLORIDE 0.9% FLUSH 10 ML FLUSH IV FLUSH PRN ×3 (00:20→06:03)
[2017-12-12] MEDS: HYDROmorphone HCL PF 2 MG/ML VIAL IV PUSH PRN ×9 (00:20→21:40)
[2017-12-12] MEDS: VANCOMYCIN INJ 2,200 MG in SODIUM CHLORID 0.9% 500 ML INJ 500 ML IV SCH ×3 (00:20→19:15)
[2017-12-12] MEDS: AZTREONAM INJ 1,000 MG in SODIUM CHLORIDE 0.9% INJ 100 ML IV SCH ×3 (06:02→23:36)
[2017-12-12 07:30] VITALS: BP 150/100; PULSE 72; RESP 20; TEMP 97.4; O2SAT 95
[2017-12-12] MEDS: INSULIN ASPART SUPPLEMENTAL SCALE SQ SCH ×4 (08:00→19:57)
[2017-12-12] MEDS: DOCUSATE SODIUM 50 MG/SENNA 8.6 MG TAB PO SCH ×2 (08:53→21:39)
[2017-12-12] MEDS: POLYSACCHARIDE IRON COMPLEX 150 MG CAP PO SCH ×2 (08:53→21:39)
[2017-12-12] MEDS: INSULIN DETEMIR 100 UNITS/ML VIAL SQ SCH ×2 (08:55→21:41)
[2017-12-12] MEDS: HYDROmorphone HCL 2 MG TAB PO PRN ×3 (09:12→21:40)
[2017-12-12] MEDS: SODIUM CHLORIDE 0.9% FLUSH 10 ML FLUSH IV FLUSH SCH ×2 (09:13→21:39)
[2017-12-12 10:32] LABS: AUTOMATED NEUTROPHIL # 4.6 TH/MM3 (1.8-7.7); BASOPHIL % 0.4 % (0.0-2.0); EOSINOPHIL # 0.1 TH/MM3 (0-0.4); EOSINOPHIL % 0.8 % (0.0-4.0); HEMATOCRIT 37.2 % (39.0-51.0); HEMOGLOBIN 12.4 GM/DL (13.0-17.0); LYMPHOCYTE # 1.3 TH/MM3 (1.0-4.8); MEAN CORPUSCULAR HEMOGLOBIN 25.4 PG (27.0-34.0); MEAN CORPUSCULAR HGB CONC 33.4 % (32.0-36.0); MEAN PLATELET VOLUME 7.9 FL (7.0-11.0); MONO % 7.7 % (0.0-8.0); MONOCYTE # 0.5 TH/MM3 (0-0.9); NEUT % 71.1 % (16.0-70.0); PLATELET COUNT 277 TH/MM3 (150-450); RED BLOOD COUNT 4.89 MIL/MM3 (4.50-5.90); RED CELL DISTRIBUTION WIDTH 12.3 % (11.6-17.2); WHITE BLOOD COUNT 6.5 TH/MM3 (4.0-11.0)
[2017-12-12 11:50] VITALS: BP 148/99; PULSE 69; RESP 20; TEMP 97.3; O2SAT 95
--- NOTE | 2017-12-12 12:44 | HHI.PR ---
Subjective Remarks Follow-up right lower extremity cellulitis, chronic lower back pain and diabetes. Patient seen and examined, lying in bed continued complaints of pain. Wound assessed today, worsening erythema and pus filled area on anterior aspect of right ankle. General surgery consulted and seen patient. Plan for OR for debridement and possible wound VAC placement. TMAX 100.1 overnight. Leukocytosis trending down. Objective Vitals Vital Signs Date Time Temp Pulse Resp B/P (MAP) Pulse Ox O2 Delivery O2 Flow Rate FiO2 12/12/17 12:27 18 12/12/17 11:50 97.3 69 20 148/99 (115) 95 12/12/17 10:05 18 12/12/17 07:30 97.4 72 20 150/100 (117) 95 12/12/17 00:00 100.1 75 20 128/78 (95) 95 12/11/17 20:00 98.7 77 20 138/91 (107) 95 12/11/17 16:18 18 12/11/17 16:18 18 12/11/17 15:43 101.0 88 18 150/88 (108) 95 I/O 12/11/17 12/11/17 12/11/17 12/12/17 12/12/17 12/12/17 06:59 14:59 22:59 06:59 14:59 22:59 Intake Total 600 ml 720 ml 0 ml 520 ml Output Total 1600 ml 1450 ml 2000 ml 900 ml 600 ml Balance -1000 ml -730 ml -2000 ml -900 ml -80 ml Intake Oral 720 ml 0 ml IV Total 600 ml 520 ml Output Urine Total 1600 ml 1450 ml 2000 ml 900 ml 600 ml # Bowel Movements 0 Result Diagram: 12/12/17 1020 12/11/17 0645 Imaging Last Impressions Chest X-Ray 12/10/17 1143 Signed Impressions: Service Date/Time: Sunday, December 10, 2017 11:59 - CONCLUSION: No acute disease. Matt Lu MD FACR Lower Extremity Ultrasound 12/10/17 0959 Signed Impressions: Service Date/Time: Sunday, December 10, 2017 10:53 - CONCLUSION: 4 cm inguinal nodes Negative for deep venous thrombosis. Matt Lu MD FACR Lower Extremity MRI 12/10/17 0000 Signed Impressions: Service Date/Time: Sunday, December 10, 2017 15:57 - CONCLUSION: Negative for abscess. MRI with metal implants is impossible to interpret because of artifact. Significant portion of the leg is not evaluated. Matt Lu MD FACR Objective Remarks GENERAL: Well-developed, well-nourished patient. Right lower extremity pain. SKIN: Warm and dry. No rash. HEAD: Normocephalic. Atraumatic. EYES: Pupils equal and round. No scleral icterus. No injection or drainage. ENT: No nasal bleeding or discharge. Mucous membranes pink and moist. NECK: Supple. Trachea midline. CARDIOVASCULAR: Regular rate and rhythm. S1, S2 noted. No murmur appreciated. RESPIRATORY: No accessory muscle use. Clear to auscultation. Breath sounds equal bilaterally. GASTROINTESTINAL: Abdomen soft, non-tender, nondistended. Normoactive bowel sounds x4. MUSCULOSKELETAL: Extremities without clubbing, cyanosis. Right lower extremity with diffuse erythema and swelling, with pus filled pocket on anterior aspect of right ankle. NEUROLOGICAL: Awake and alert. No obvious cranial nerve deficits. Motor grossly within normal limits. 5/5 muscle strength in bilateral upper and lower extremities. Normal speech. PSYCHIATRIC: Appropriate mood and affect; insight and judgment normal. A/P Problem List: (1) Cellulitis ICD Code: L03.90 - Cellulitis Status: Acute Plan: Right lower extremity MRI reviewed showing no abscess. MRI with metal implants is impossible to interpret because of artifact. Lower extremity CT done and awaiting report, follow. Consult placed to orthopedics, appreciate input recommendations regarding previous medal implants. General surgery plan for OR and debridement and possible wound VAC placement today. n.p.o. Hold heparin. We will continue with IV antibiotics. Continue to monitor for infection. Lactic acid normal. Leukocytosis improved. Continue IV narcotics for pain. Consult placed infectious disease. Appreciate input recommendations. Continue Azactam and Vanco. (2) Chronic lower back pain ICD Code: M54.5 - Chronic low back pain; G89.29 - Other chronic pain Status: Chronic Plan: We will continue with patient's home medications for pain (3) Diabetes mellitus ICD Code: E11.9 - Type 2 diabetes mellitus without complications Status: Chronic Plan: Continue with diabetic sliding scale Continue with diabetic diet and adjust insulin as needed Hold home metformin Hemoglobin A1c 12.7 DVT prophylaxis: Heparin on hold for surgery. Ginger Zavala Dec 12, 2017 12:44
--- NOTE | 2017-12-12 13:32 | RADRPT ---
EXAM DATE/TIME: 12/11/2017 13:20 [facility] COMPARISON: MRI LOWER LEG RIGHT W/O CONTRAST, December 10, 2017, 15:57. INDICATIONS : Swollen and red right ankle with open sore anteriorly. IV CONTRAST: 95 cc Omnipaque 350 (iohexol) IV RADIATION DOSE: 9.17 CTDIvol (mGy) MEDICAL HISTORY : Hypertension. Hepatitis C. Bladder cancer. Diabetes. SURGICAL HISTORY : Bilateral ankle surgery. ENCOUNTER: Initial ACUITY: 4 - 6 days PAIN SCALE: 10/10 LOCATION: Right ankle TECHNIQUE: Volumetric scanning of the ankle was performed. Using automated exposure control and adjustment of t he mA and/or kV according to patient size, radiation dose was kept as low as reasonably achievable to obtain optimal diagnostic quality images. DICOM format image data is available electronically for review and comparison. FINDINGS: Generalized subcutaneous edema is present. A small apparent fluid collection is now evident in the m id calf anteriorly in the subcutaneous tissues measuring less than 1 cm. This appear be associated w ith thrombophlebitis of superficial varicosities. Moderate artifact is present from the metal plate in the distal fibula. There is no periosteal reaction about the distal tibia. CONCLUSION: Small less than 1 cm fluid collection present in the soft tissues anterior calf with apparent thrombo phlebitis of varicosities.. Ultrasound may help in the diagnosis. Matt Lu MD FACR on December 12, 2017 at 13:26 Board Certified Radiologist. This report was verified electronically.
--- NOTE | 2017-12-12 14:12 | PD.CONS ---
cc: Kalpesh Narvaez MD HPI Service General Surgery Consult Requested By Dr. Melgoza Reason for Consult Evaluate for I&D RIGHT leg Primary Care Physician No Primary Care Physician History of Present Illness This is a 47 year old male with a past medical history of bladder cancer. hypertension and type 2 diabetes mellitus. About two days before coming to the ED he reports he hit his leg accidently on a coffee table. At first, the area had a small bruise but over the next 24 hours he developed redness in that area and difficulty bearing weight. He does periodically have some pain in the lateral portion of his leg related to an injury about 25 years ago. He does have orthopedic hardware there. He reports chills. Since admission the redness has increased and there are small areas of pustules present. The wound is not spontaneously draining. An MRI of the leg was done which does not show a definitive abscess. Of note, the patient does have a history of IVDA but reports say he has not done this for about a year. He had a similar episode on his LEFT hand/wrist and treated by Dr. Cardona. Also note that several months ago the patient lost his patient assistance and has not been able to get his insulin. He reports that his blood glucose has been very elevated during this time. A General Surgery consultation has been requested. Review of Systems Constitutional: COMPLAINS OF: Fatigue, Fever, Chills Endocrine: DENIES: Polydipsia, Polyuria, Polyphagia Eyes: DENIES: Diplopia, Eye inflammation Ears, nose, mouth, throat: DENIES: Hearing loss, Vertigo Respiratory: DENIES: Cough Cardiovascular: DENIES: Chest pain Gastrointestinal: DENIES: Abdominal pain, Nausea, Vomiting Musculoskeletal: COMPLAINS OF: Stiffness (RIGHT leg ), Joint Swelling (RIGHT ankle) Integumentary: DENIES: Abnormal pigmentation Hematologic/lymphatic: DENIES: Bruising Immunologic/allergic: DENIES: Eczema Neurologic: DENIES: Headache, Localized weakness Psychiatric: DENIES: Confusion, Mood changes, Depression Past Family Social History Past Medical History Bladder cancer Type 2 Diabetes Mellitus Past Surgical History Bladder surgery RIGHT ankle fracture with hardware placed LEFT hand/wrist I&D Reported Medications Lisinopril Hydrochlorothiazide Metformin Levemir Glipizide Allergies: Coded Allergies: carbamazepine (Verified Allergy, Severe, HIVES, 12/10/17) cephalexin (Verified Allergy, Severe, Rash, 12/10/17) erythromycin base (Verified Allergy, Severe, RASH, 12/10/17) penicillin G (Verified Allergy, Severe, RASH, 12/10/17) phenytoin (Verified Allergy, Severe, RASH, 12/10/17) hydrocodone (Verified Allergy, Unknown, HIVES, 12/10/17) acetaminophen (Verified Adverse Reaction, Severe, "UPSETS HIS STOMACH", ) ALLERGIC TO CODEINE NOT THE ACETAMINOPHEN codeine (Verified Adverse Reaction, Severe, "UPSETS HIS STOMACH", 12/10/17) ALLERGIC TO CODEINE NOT THE ACETAMINOPHEN *MDRO Multi-Drug Resistant Organism (Verified Adverse Reaction, Unknown, ) 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 Ordered Medications Current Medications Medications (Trade) Dose Ordered Sig/Shana Route Start Time Stop Time Status Last Admin (NS Flush) 2 ml UNSCH PRN IV FLUSH 12/10/17 14:15 12/12/17 06:03 (NS Flush) 2 ml BID IV FLUSH 12/10/17 21:00 12/12/17 09:13 (Zofran Inj) 4 mg Q6H PRN IVP 12/10/17 14:15 (Narcan Inj) 0.4 mg UNSCH PRN IV PUSH 12/10/17 14:15 (Alison-Colace) 1 tab BID PO 12/10/17 21:00 12/12/17 08:53 (Milk Of Magnesia Liq) 30 ml Q12H PRN PO 12/10/17 14:15 (D50w (Vial) Inj) 50 ml UNSCH PRN IV PUSH 12/10/17 14:15 (Glucagon Inj) 1 mg UNSCH PRN OTHER 12/10/17 14:15 (NovoLOG SUPPLEMENTAL SCALE) 1 ACHS SLIDING SCALE SQ 12/10/17 17:00 12/11/17 23:06 Pharmacy Profile Note 0 ml @ 0 mls/hr UNSCH OTHER 12/10/17 15:00 Aztreonam 1000 mg/ Sodium Chloride 100 ml @ 200 mls/hr Q8H IV 12/10/17 15:00 12/12/17 06:02 (Dilaudid) 2 mg Q6H PRN PO 12/10/17 14:45 12/12/17 09:12 Vancomycin HCl 2200 mg/Sodium Chloride 522 ml @ 250 mls/hr Q8H IV 12/10/17 17:00 12/12/17 09:13 (Motrin) 400 mg Q4H PRN PO 12/10/17 17:45 12/11/17 15:18 (Dilaudid Pf Inj) 0.5 mg Q3H PRN IV PUSH 12/10/17 21:15 12/12/17 11:57 (Levemir Inj) 35 units BID SQ 12/11/17 21:00 12/12/17 08:55 (Nu-Iron) 150 mg Q12HR PO 12/11/17 21:00 12/12/17 08:53 Family History Non contributory Social History Denies tobacco use Denies ETOH use Denies currently IVDA; has injected medications in the past Physical Exam Vital Signs Vital Signs Date Time Temp Pulse Resp B/P (MAP) Pulse Ox O2 Delivery O2 Flow Rate FiO2 12/12/17 12:27 18 12/12/17 11:50 97.3 69 20 148/99 (115) 95 12/12/17 10:05 18 12/12/17 07:30 97.4 72 20 150/100 (117) 95 12/12/17 00:00 100.1 75 20 128/78 (95) 95 12/11/17 20:00 98.7 77 20 138/91 (107) 95 12/11/17 16:18 18 12/11/17 16:18 18 12/11/17 15:43 101.0 88 18 150/88 (108) 95 Physical Exam GENERAL: Pleasant 47 year old male resting in bed in moderate discomfort secondary to pain in RIGHT leg. SKIN: LEFT leg--- no areas of concern for abscess. RIGHT ankle---- edematous; erythremia; warm to touch. Three yanet of palpable fluid collection that are not drainage. Foot not affected. Not able to bear weight on this extremity. HEAD: Atraumatic. Normocephalic. EYES: Pupils equal and round. No scleral icterus. No injection or drainage. ENT: No nasal bleeding or discharge. Mucous membranes pink and moist. NECK: Trachea midline. CARDIOVASCULAR: Regular rate and rhythm. RESPIRATORY: No accessory muscle use. Clear to auscultation. Breath sounds equal bilaterally. GASTROINTESTINAL: Abdomen soft, non-tender, nondistended. MUSCULOSKELETAL: BUE without any issues or fluid collection; See above for RIGHT leg skin assessment. NEUROLOGICAL: Awake and alert. No obvious cranial nerve deficits. Motor grossly within normal limits. Five out of 5 muscle strength in the arms and legs. Normal speech. PSYCHIATRIC: Appropriate mood and affect; insight and judgment normal. Laboratory Laboratory Tests Test 12/11/17 17:10 12/12/17 10:20 Ferritin 171 Vancomycin Level Trough 10.1 White Blood Count 6.5 Red Blood Count 4.89 Hemoglobin 12.4 Hematocrit 37.2 Mean Corpuscular Volume 76.0 Mean Corpuscular Hemoglobin 25.4 Mean Corpuscular Hemoglobin Concent 33.4 Red Cell Distribution Width 12.3 Platelet Count 277 Mean Platelet Volume 7.9 Neutrophils (%) (Auto) 71.1 Lymphocytes (%) (Auto) 20.0 Monocytes (%) (Auto) 7.7 Eosinophils (%) (Auto) 0.8 Basophils (%) (Auto) 0.4 Neutrophils # (Auto) 4.6 Lymphocytes # (Auto) 1.3 Monocytes # (Auto) 0.5 Eosinophils # (Auto) 0.1 Basophils # (Auto) 0.0 CBC Comment DIFF FINAL Differential Comment Date/Time Source Procedure Growth Status 12/11/17 19:00 Blood Peripheral Aerobic Blood Culture - Preliminary NO GROWTH IN 1 DAY Resulted 12/11/17 19:00 Blood Peripheral Anaerobic Blood Culture - Preliminary NO GROWTH IN 1 DAY Resulted 12/11/17 11:30 Wound Ankle Fungal Smear - Final NO FUNGAL ELEMENTS SEEN. Resulted 12/11/17 11:30 Wound Ankle Fungal Culture Pending Resulted Result Diagram: 12/12/17 1020 12/11/17 0645 Imaging Last 48 hours Impressions Lower Extremity CT 12/11/17 0000 Signed Impressions: Service Date/Time: Monday, December 11, 2017 13:20 - CONCLUSION: Small less than 1 cm fluid collection present in the soft tissues anterior calf with apparent thrombophlebitis of varicosities.. Ultrasound may help in the diagnosis. Matt Lu MD FACR Assessment and Plan Assessment and Plan 47 year old male with RIGHT leg abscess -WBC seems to be improving with IV antibiotics -Clinically the wound is not improving; not spontaneously draining -Continue antibiotics -Will plan for OR this evening with Dr. Narvaez; may require the assistance of Orthopedics too -Obtain consents -NPO -Hold Heparin -Discussed with patient, his Mother and Ginger BAILEY -All questions answered -Thank you for this consult; We will continue to follow I CERTIFY AND ATTEST THAT I PERSONALLY SAW THIS PATIENT AND AGREE WITH ABOVE PLAN. THIS IS REALLY AN ORTHOPAEDIC SURGERY ISSUE. APPARENTLY THEY REFUSED TO COME SEE PATIENT. I WILL TAKE TO OR AND DRAIN THE ABSCESS. IF IT IS DEEP OR INVOLVES HARDWARE I WILL CONSULT THEM INTRAOPERATIVELY. KALPESH NARVAEZ MD FACS Discussed Condition With Dr. Esther BAILEY Mr. Agrawal + Mother at bedside Mayela Kilgore/First Alexi BAILEY Dec 12, 2017 14:12 Kalpesh Narvaez MD Dec 16, 2017 12:11
[2017-12-12] MEDS ORDERED: LACTATED RINGER'S 1000 ML IV PRN (16:45)
[2017-12-12] MEDS ORDERED: CHLORHEXIDINE GLUCONATE 2 % 1 PACK (2 CLOTHS) TOPICAL PRN (16:45)
[2017-12-12] MEDS ORDERED: SODIUM CHLORID 0.9% 500 ML IV PRN (16:45)
[2017-12-12] MEDS ORDERED: METOPROLOL TARTRATE 25 MG TAB PO PRN (16:45)
[2017-12-12] MEDS ORDERED: POVIDONE IODINE 5% (ANTISEPSIS KIT) 4 APPLICATIONS EACH NARE PRN (16:45)
[2017-12-12] MEDS ORDERED: BUPIVACAINE/EPINEPHRINE 0.25% 50 ML VIAL ONE (17:03)
[2017-12-12] MEDS: MORPHINE SULFATE 8 MG/ML INJ IV PUSH PRN ×3 (17:57→18:16)
[2017-12-12] MEDS ORDERED: DO NOT ADM ANY ANTICOAGULANT DRUGS PRN (18:00)
--- NOTE | 2017-12-12 18:08 | MP ---
cc: Vernon Santana MD DATE OF OPERATION: PREOPERATIVE DIAGNOSES: 1. Complex soft tissue infection in right lower extremity, status post traumatic injury. 2. Insulin-dependent diabetes mellitus. 3. Morbid obesity. 4. History of multiple previous extremity abscesses. POSTOPERATIVE DIAGNOSES: 1. Complex soft tissue infection in right lower extremity, status post traumatic injury. 2. Insulin-dependent diabetes mellitus. 3. Morbid obesity. 4. History of multiple previous extremity abscesses. PROCEDURE PERFORMED: Incision and drainage, complex abscess, right lower extremity (anterior tibia, 8 x 3 cm). SURGEON: Vernon Santana MD ANESTHESIA: General LMA. COMPLICATIONS: None. INDICATION FOR PROCEDURE: Mr. Agrawal is a 47-year-old gentleman who was admitted to [facility] on 12/10/2017, with a history and complaint of a complex soft tissue infection on his right lower extremity. He reports he bumped his leg and developed severe swelling and pain and redness. He was brought to [facility] where he was admitted, placed on the medical service and underwent extensive imaging including CT, MRI and ultrasound. Imaging did not show a significant abscess; however, by obvious physical exam, the patient had a complex abscess on his anterior tibial region in the lower leg just above the ankle. The patient has had previous multiple abscesses on his extremities. He does have a history of a metal hardware in his right ankle approximately 20 years ago for a fracture. The patient was initially managed with antibiotics and failed. Surgical consultation was requested. Initial orthopedic surgery consultation, Dr. Warner, was requested, but she declined and referred to general surgery without seeing the patient. We received the consultation and came and examined the patient this morning. This was an obvious complex soft tissue infection of the right lower extremity that likely extended deep. We offered the patient a formal I and D in the operating room with the understanding that we may have to involve orthopedics at some point if it was beyond the scope of our practice. The patient was agreeable to the procedure. Operating room was notified and he was scheduled for the afternoon. DETAILS OF PROCEDURE: The patient was identified, brought to the operating room, placed supine on the operating table. After adequate general anesthesia was achieved with LMA, the right lower extremity was prepped and draped circumferentially from the knee down. Attention was first directed to the anterior tibial region where a large fluctuant abscess was noted. Marcaine 0.25% was injected in the skin overlying the abscess. A longitudinal incision was made with a scalpel. A large amount of gross pus came forth. Intraoperative cultures were sent. All loculations were then broken up. The infection appeared to extend deep down to the subcutaneous fat and muscle. All necrotic tissue was debrided, and this left about a 6 or 7 mm defect in the longitudinal direction and about a 3 cm defect medial to lateral. Next, attention was directed more proximally up on the posterior calf area. The patient reports he felt another abscess. He had an old wound in this area and we excised the old wound, but we did not encounter any significant subcutaneous pus. At this point, we directed our attention back to the original wound. Wound was cleansed with hydrogen peroxide and then it was copiously irrigated with power irrigation using 2 L of warm saline solution. Bleeding points were controlled with electrocautery Bovie. By direct palpation, there was no other extension of the abscess that I could identify. Wound was then injected with additional local anesthetic and packed with 1/2 inch iodoform gauze. Sterile gauze was applied to both wounds and the right leg was wrapped with a Kerlix and an Royal wrap. The patient tolerated the procedure well. He is awakened and brought to recovery room in stable condition. If the patient's tissue infection progresses, he will obviously need orthopedic involvement due to the complexity of the lower extremity infection. Clearly, this is beyond the scope of a general surgery practice. MD MUKUND Quintero/WALTER , 05:41 PM , 06:07 PM
[2017-12-12 20:00] VITALS: BP 144/88; PULSE 81; RESP 20; TEMP 99.5; O2SAT 96
[2017-12-13] VITALS: BP 143/93; PULSE 77; RESP 20; TEMP 99.3; O2SAT 95
[2017-12-13] MEDS: VANCOMYCIN INJ 2,200 MG in SODIUM CHLORID 0.9% 500 ML INJ 500 ML IV SCH ×3 (00:39→17:31)
[2017-12-13] MEDS: HYDROmorphone HCL PF 2 MG/ML VIAL IV PUSH PRN ×8 (00:40→21:45)
[2017-12-13] MEDS: HYDROmorphone HCL 2 MG TAB PO PRN ×4 (03:41→23:06)
[2017-12-13] MEDS: AZTREONAM INJ 1,000 MG in SODIUM CHLORIDE 0.9% INJ 100 ML IV SCH ×3 (06:45→23:06)
[2017-12-13 07:50] VITALS: BP 177/109; PULSE 73; RESP 20; TEMP 96.7; O2SAT 95
[2017-12-13] MEDS: INSULIN DETEMIR 100 UNITS/ML VIAL SQ SCH ×2 (08:44→20:49)
[2017-12-13] MEDS: POLYSACCHARIDE IRON COMPLEX 150 MG CAP PO SCH ×2 (08:46→20:49)
[2017-12-13] MEDS: DOCUSATE SODIUM 50 MG/SENNA 8.6 MG TAB PO SCH ×2 (08:46→20:49)
[2017-12-13] MEDS: INSULIN ASPART SUPPLEMENTAL SCALE SQ SCH ×4 (08:46→20:50)
[2017-12-13] MEDS: SODIUM CHLORIDE 0.9% FLUSH 10 ML FLUSH IV FLUSH SCH ×2 (09:00→20:49)
--- NOTE | 2017-12-13 09:46 | HHI.PR ---
Subjective Remarks Follow-up right lower extremity cellulitis, chronic lower back pain and diabetes. Patient seen and examined, lying in bed comfortably. Status post debridement in OR yesterday. Patient states that pain has continued but some relief post surgery. Vital signs are stable overnight. Afebrile. Objective Vitals Vital Signs Date Time Temp Pulse Resp B/P (MAP) Pulse Ox O2 Delivery O2 Flow Rate FiO2 12/13/17 07:50 96.7 73 20 177/109 (131) 95 12/13/17 00:00 99.3 77 20 143/93 (110) 95 12/12/17 20:00 99.5 81 20 144/88 (106) 96 12/12/17 19:13 18 12/12/17 18:41 18 12/12/17 18:20 98.1 69 18 153/90 (111) 95 Room Air 12/12/17 18:05 70 18 144/97 (113) 96 Room Air 12/12/17 17:50 71 18 137/82 (100) 95 Room Air 12/12/17 17:35 98.3 83 18 115/80 (92) 96 Room Air 12/12/17 16:23 18 12/12/17 15:54 98.3 95 18 169/100 (123) 96 12/12/17 11:50 97.3 69 20 148/99 (115) 95 I/O 12/12/17 12/12/17 12/12/17 12/13/17 12/13/17 12/13/17 07:00 15:00 23:00 07:00 15:00 23:00 Intake Total 0 ml 520 ml 1200 ml 820 ml Output Total 900 ml 600 ml 1275 ml 2100 ml Balance -900 ml -80 ml -75 ml -1280 ml Intake Oral 0 ml 0 ml 720 ml IV Total 520 ml 500 ml 100 ml Other 700 ml Output Urine Total 900 ml 600 ml 1275 ml 2100 ml # Bowel Movements 0 Result Diagram: 12/12/17 1020 12/11/17 0645 Imaging Last Impressions Lower Extremity CT 12/11/17 0000 Signed Impressions: Service Date/Time: Monday, December 11, 2017 13:20 - CONCLUSION: Small less than 1 cm fluid collection present in the soft tissues anterior calf with apparent thrombophlebitis of varicosities.. Ultrasound may help in the diagnosis. Matt Lu MD FACR Chest X-Ray 12/10/17 1143 Signed Impressions: Service Date/Time: Sunday, December 10, 2017 11:59 - CONCLUSION: No acute disease. Matt Lu MD FACR Lower Extremity Ultrasound 12/10/17 0959 Signed Impressions: Service Date/Time: Sunday, December 10, 2017 10:53 - CONCLUSION: 4 cm inguinal nodes Negative for deep venous thrombosis. Matt Lu MD FACR Lower Extremity MRI 12/10/17 0000 Signed Impressions: Service Date/Time: Sunday, December 10, 2017 15:57 - CONCLUSION: Negative for abscess. MRI with metal implants is impossible to interpret because of artifact. Significant portion of the leg is not evaluated. Matt Lu MD FACR Objective Remarks GENERAL: Well-developed, well-nourished patient. Lying in bed comfortably. SKIN: Warm and dry. No rash. HEAD: Normocephalic. Atraumatic. EYES: Pupils equal and round. No scleral icterus. No injection or drainage. ENT: No nasal bleeding or discharge. Mucous membranes pink and moist. NECK: Supple. Trachea midline. CARDIOVASCULAR: Regular rate and rhythm. S1, S2 noted. No murmur appreciated. RESPIRATORY: No accessory muscle use. Clear to auscultation. Breath sounds equal bilaterally. GASTROINTESTINAL: Abdomen soft, non-tender, nondistended. Normoactive bowel sounds x4. MUSCULOSKELETAL: Extremities without clubbing, cyanosis. Right lower extremity with Royal bandage in place and elevated. No numbness or tingling, sensation intact. NEUROLOGICAL: Awake and alert. No obvious cranial nerve deficits. Motor grossly within normal limits. 5/5 muscle strength in bilateral upper and lower extremities. Normal speech. PSYCHIATRIC: Appropriate mood and affect; insight and judgment normal. A/P Problem List: (1) Cellulitis ICD Code: L03.90 - Cellulitis Status: Acute Plan: Right lower extremity MRI reviewed showing no abscess. MRI with metal implants is impossible to interpret because of artifact. Lower extremity CT done showing small less than 1 centimeter fluid collection. General surgery to OR yesterday for debridement. Patient tolerated well. We will continue with IV antibiotics. Continue to monitor for infection. Lactic acid normal. Leukocytosis improved. Continue IV narcotics for pain. Will increase dose and add dose for dressing changes. Consult placed infectious disease. Appreciate input recommendations. Continue Azactam and Vanco. Blood cultures on 12/10/17 growing Viridans Streptococcus in anaerobic bottle. Repeat blood cultures are negative. Wound culture pending. (2) Chronic lower back pain ICD Code: M54.5 - Chronic low back pain; G89.29 - Other chronic pain Status: Chronic Plan: We will continue with patient's home medications for pain (3) Diabetes mellitus ICD Code: E11.9 - Type 2 diabetes mellitus without complications Status: Chronic Plan: Continue with diabetic sliding scale Continue with diabetic diet and adjust insulin as needed Hold home metformin Hemoglobin A1c 12.7 DVT prophylaxis: Heparin. Ginger Zavala Dec 13, 2017 09:46
[2017-12-13 11:50] VITALS: BP 155/102; PULSE 76; RESP 20; TEMP 97.1; O2SAT 98
[2017-12-13] MEDS ORDERED: cloNIDine HCL 0.1 MG TAB PO PRN (13:15)
--- NOTE | 2017-12-13 14:55 | HHI.PR ---
cc: Vernon Santana MD Subjective Subjective Notes Resting in bed with RIGHT leg elevated Reports pain in RIGHT leg but better today Objective Vitals/I&O Vital Signs Date Time Temp Pulse Resp B/P (MAP) Pulse Ox O2 Delivery O2 Flow Rate FiO2 12/13/17 11:50 97.1 76 20 155/102 (119) 98 12/12/17 18:20 Room Air Labs Date/Time Source Procedure Growth Status 12/11/17 19:00 Blood Peripheral Aerobic Blood Culture - Preliminary NO GROWTH IN 2 DAYS Resulted 12/11/17 19:00 Blood Peripheral Anaerobic Blood Culture - Preliminary NO GROWTH IN 2 DAYS Resulted 12/12/17 17:08 Abscess Leg Gram Stain - Final Resulted 12/12/17 17:08 Abscess Leg Wound Culture - Preliminary NO GROWTH IN 24 HOURS. Resulted Radiology Last 48 hours Impressions Lower Extremity CT 12/11/17 0000 Signed Impressions: Service Date/Time: Monday, December 11, 2017 13:20 - CONCLUSION: Small less than 1 cm fluid collection present in the soft tissues anterior calf with apparent thrombophlebitis of varicosities.. Ultrasound may help in the diagnosis. Matt Lu MD FACR Cardiovascular: Regular Lungs: Clear Abdomen: Non-distended, Non-tender Extremities: Other Narrative Exam RIGHT leg elevated on several pillows--- with dry Royal bandage in place A/P Assessment and Plan 47 year old male POD1 I&D of RIGHT leg -Dressing change today -Pain control--- pain medication available for dressing changes -Diabetic diet -Continue antibiotics -ID following Mayela Kilgore/Environmental Services Aide [employer] HAND[employer]ER Dec 13, 2017 14:55
[2017-12-13 15:50] VITALS: BP 162/104; PULSE 83; RESP 20; TEMP 98.9; O2SAT 97
[2017-12-13] MEDS: MORPHINE SULFATE 8 MG/ML INJ IV PUSH SCH (16:26)
[2017-12-13 20:00] VITALS: BP 159/107; PULSE 84; RESP 20; TEMP 99.1; O2SAT 98
[2017-12-14] VITALS (7 sets, daily range): BP systolic 131–161; BP diastolic 81–106; PULSE 73–84; RESP 18–20; TEMP 97–99.4; O2SAT 93–97
[2017-12-14] MEDS: MORPHINE SULFATE 8 MG/ML INJ IV PUSH SCH (00:34)
[2017-12-14] MEDS: MORPHINE SULFATE 8 MG/ML INJ IV PUSH PRN ×6 (00:34→10:59)
[2017-12-14] MEDS: VANCOMYCIN INJ 2,200 MG in SODIUM CHLORID 0.9% 500 ML INJ 500 ML IV SCH ×3 (00:34→17:44)
[2017-12-14] MEDS: HYDROmorphone HCL PF 2 MG/ML VIAL IV PUSH PRN ×2 (01:38→09:07)
[2017-12-14] MEDS: AZTREONAM INJ 1,000 MG in SODIUM CHLORIDE 0.9% INJ 100 ML IV SCH ×2 (06:31→15:30)
[2017-12-14] MEDS: DOCUSATE SODIUM 50 MG/SENNA 8.6 MG TAB PO SCH ×2 (09:06→22:04)
[2017-12-14] MEDS: INSULIN DETEMIR 100 UNITS/ML VIAL SQ SCH ×2 (09:11→22:08)
[2017-12-14] MEDS: SODIUM CHLORIDE 0.9% FLUSH 10 ML FLUSH IV FLUSH SCH ×2 (09:18→22:02)
[2017-12-14] MEDS: INSULIN ASPART SUPPLEMENTAL SCALE SQ SCH ×4 (09:23→22:09)
--- NOTE | 2017-12-14 10:04 | PD.WCN.NOT ---
Wound Consult Description: Received consult from Doctor Santana regarding wound management of RLE Communicated with: COCO Jama, and Mayela BAILEY general surgery Recommendation: 1.Please cleanse wound to R medial palafox with normal saline or wound cleanser and pat dry. Apply Optifoam AG gentle, secured with rolled gauze and tape and change dressing every 2 days or PRN if saturated or dislodged. 2. Cleanse wound to R lower palafox with normal saline and pat dry. Apply Wound VAC dressing. Change wound VAC dressing Sunday-Sunday and Sunday.Apply adaptic to exposed tendon or facia before applying wound VAC dressing. 3. Vac settings at 125 mm/hg low continuous suction . Additional Information: Received wound management consult from Doctor Santana for wound care recommendation of RLE. Patient is post op day 2 following I&D of abscesses to RLE. Mayela BAILEY in room during wound assessment. Rolled gauze and gauze dressings in place were removed to reveal open surgical wounds to R medial palafox and R lower palafox. Wound to R lower palafox measures 3.5cm x 1.5cm x 2cm with undermining from 6 to 9 o'clock deepest at 9 o'clock measuring ~0.3cm. Wound bed presents with ~10% white tissue, ~20% muscle tissue, and ~70% red granulation tissue. Wound has scant sero-sanguinous drainage that is with out odor. Wound margins are sharp and well defined.Slight Erythema is noted to periwound.Small wound dry wound with ~80% dry white exudate, ~10% black tissue and ~10% pink tissue is assessed ~4 cm out from wound bed at 11 o'clock. Wound is dry and non draining without odor. Periwound is erythematous without induration. Wound to R medial palafox presents with 100% red tissue. Wound has scant sero- sanguinous drainage that is without odor.Wound margins are sharp and well defined. Wound measures 1.2cm x 0.5cm x 0.6cm.Periwound is unremarkable. Wound was cleansed with normal saline. Applied optifoam AG gentle over wound bed and secured with rolled gauze and tape. Wound to R lower palafox was cleansed with normal saline. Oil emulsion gauze was applied over white tissue in wound bed. Skin barrier film (skin prep)was applied to periwound. Window paned wound with VAC drape.Black granufoam was then applied to wound bed and secured in place with VAC drape. Hole was cut in drape to expose foam. Mushroom cap of granufoam with attached Sensi trac pad was then applied over exposed granufoam. Wound VAC is suctioning at 125 mm/hg continuous low suction without leaks. Patient was premedicated with pain medication before VAC dressing was applied. Patient tolerated procedure well. Next VAC change will be on Sunday12/17/2017. Nelli Lindquist [facility] Dec 14, 2017 10:04
--- NOTE | 2017-12-14 12:16 | HHI.PR ---
Subjective Remarks Follow-up right lower extremity cellulitis, chronic lower back pain and diabetes. Postop day #2. Patient seen and examined lying in bed comfortably, right lower extremity elevated on pillow, wound VAC placed today by wound care nurse. Patient states pain is well controlled. Vital signs are stable. Plan is to assess wound on Sunday to determine need for wound VAC. Objective Vitals Vital Signs Date Time Temp Pulse Resp B/P (MAP) Pulse Ox O2 Delivery O2 Flow Rate FiO2 12/14/17 09:37 18 12/14/17 08:00 99.2 77 18 142/99 (113) 95 12/14/17 05:40 97.0 78 20 131/96 (108) 95 12/14/17 00:00 98.4 73 20 161/106 (124) 97 12/13/17 20:00 99.1 84 20 159/107 (124) 98 12/13/17 17:26 18 12/13/17 16:31 18 12/13/17 15:50 98.9 83 20 162/104 (123) 97 12/13/17 14:03 18 I/O 12/13/17 12/13/17 12/13/17 12/14/17 12/14/17 12/14/17 07:00 15:00 23:00 07:00 15:00 23:00 Intake Total 820 ml 1070 ml 960 ml Output Total 2100 ml 1950 ml 1725 ml Balance -1280 ml -880 ml -765 ml Intake Oral 720 ml 1070 ml 960 ml IV Total 100 ml Output Urine Total 2100 ml 1950 ml 1725 ml # Voids 3 # Bowel Movements 0 0 Result Diagram: 12/12/17 1020 12/11/17 0645 Imaging Last Impressions Lower Extremity CT 12/11/17 0000 Signed Impressions: Service Date/Time: Monday, December 11, 2017 13:20 - CONCLUSION: Small less than 1 cm fluid collection present in the soft tissues anterior calf with apparent thrombophlebitis of varicosities.. Ultrasound may help in the diagnosis. Matt Lu MD FACR Chest X-Ray 12/10/17 1143 Signed Impressions: Service Date/Time: Sunday, December 10, 2017 11:59 - CONCLUSION: No acute disease. Matt Lu MD FACR Lower Extremity Ultrasound 12/10/17 0959 Signed Impressions: Service Date/Time: Sunday, December 10, 2017 10:53 - CONCLUSION: 4 cm inguinal nodes Negative for deep venous thrombosis. Matt Lu MD FACR Lower Extremity MRI 12/10/17 0000 Signed Impressions: Service Date/Time: Sunday, December 10, 2017 15:57 - CONCLUSION: Negative for abscess. MRI with metal implants is impossible to interpret because of artifact. Significant portion of the leg is not evaluated. Matt Lu MD FACR Objective Remarks GENERAL: Well-developed, well-nourished patient. Lying in bed comfortably. SKIN: Warm and dry. No rash. HEAD: Normocephalic. Atraumatic. EYES: Pupils equal and round. No scleral icterus. No injection or drainage. ENT: No nasal bleeding or discharge. Mucous membranes pink and moist. NECK: Supple. Trachea midline. CARDIOVASCULAR: Regular rate and rhythm. S1, S2 noted. No murmur appreciated. RESPIRATORY: No accessory muscle use. Clear to auscultation. Breath sounds equal bilaterally. GASTROINTESTINAL: Abdomen soft, non-tender, nondistended. Normoactive bowel sounds x4. MUSCULOSKELETAL: Extremities without clubbing, cyanosis. Right lower extremity with Royal bandage in place and elevated. No numbness or tingling, sensation intact. NEUROLOGICAL: Awake and alert. No obvious cranial nerve deficits. Motor grossly within normal limits. 5/5 muscle strength in bilateral upper and lower extremities. Normal speech. PSYCHIATRIC: Appropriate mood and affect; insight and judgment normal. A/P Problem List: (1) Cellulitis ICD Code: L03.90 - Cellulitis Status: Acute Plan: Right lower extremity MRI reviewed showing no abscess. MRI with metal implants is impossible to interpret because of artifact. Lower extremity CT done showing small less than 1 centimeter fluid collection. General surgery to OR for debridement, postop day #2. We will continue with IV antibiotics. Continue to monitor for infection. Lactic acid normal. Leukocytosis improved. Continue IV narcotics for pain. Will adjust pain medication regimen and add long-acting p.o. Assess response. Consult placed infectious disease. Appreciate input recommendations. Continue Azactam and Vanco. Blood cultures on 12/10/17 growing Viridans Streptococcus in anaerobic bottle. Repeat blood cultures are negative. Wound culture growing viridian Streptococcus. Awaiting sensitivity. (2) Chronic lower back pain ICD Code: M54.5 - Chronic low back pain; G89.29 - Other chronic pain Status: Chronic Plan: We will continue with patient's home medications for pain (3) Diabetes mellitus ICD Code: E11.9 - Type 2 diabetes mellitus without complications Status: Chronic Plan: Continue with diabetic sliding scale Continue with diabetic diet and adjust insulin as needed Hold home metformin Hemoglobin A1c 12.7 DVT prophylaxis: Heparin. Discharge Planning Wound care will assess wound on Sunday and determine if wound VAC as needed for discharge. Attending Statement The exam, history, and the medical decision-making described in the above note were completed with the assistance of the [facility] provider. I reviewed and agree with the findings presented. I attest that I had a [id number]-omca encounter with the patient on the same day, and personally performed and documented my assessment and findings in the medical record. Discussed pain management changed for oral morphine he agrees and will continue to use PO meds Ginger Zavala Dec 14, 2017 12:16 Dalia Husain MD Dec 14, 2017 12:47
[2017-12-14] MEDS: MORPHINE SULFATE 15 MG TAB PO PRN ×3 (13:15→22:04)
[2017-12-14 15:18] LABS: AUTOMATED NEUTROPHIL # 4.4 TH/MM3 (1.8-7.7); BASOPHIL % 0.6 % (0.0-2.0); EOSINOPHIL # 0.2 TH/MM3 (0-0.4); EOSINOPHIL % 3.2 % (0.0-4.0); HEMATOCRIT 39.8 % (39.0-51.0); HEMOGLOBIN 12.8 GM/DL (13.0-17.0); LYMPH % 27.7 % (9.0-44.0); MEAN CELL VOLUME 77.2 FL (80.0-100.0); MEAN CORPUSCULAR HEMOGLOBIN 24.8 PG (27.0-34.0); MEAN CORPUSCULAR HGB CONC 32.1 % (32.0-36.0); MEAN PLATELET VOLUME 7.7 FL (7.0-11.0); MONO % 7.3 % (0.0-8.0); MONOCYTE # 0.5 TH/MM3 (0-0.9); NEUT % 61.2 % (16.0-70.0); PLATELET COUNT 376 TH/MM3 (150-450); RED BLOOD COUNT 5.15 MIL/MM3 (4.50-5.90); RED CELL DISTRIBUTION WIDTH 12.7 % (11.6-17.2); WHITE BLOOD COUNT 7.1 TH/MM3 (4.0-11.0)
[2017-12-14] MEDS: MORPHINE SULFATE 2 MG/ML INJ IV PUSH PRN (15:28)
[2017-12-14 15:42] LABS: CALCIUM 8.6 MG/DL (8.5-10.1)
[2017-12-14 15:43] LABS: BICARBONATE 27.4 MEQ/L (21.0-32.0)
[2017-12-14 15:46] LABS: CREATININE 0.6 MG/DL (0.60-1.30)
--- NOTE | 2017-12-14 15:54 | HHI.PR ---
Subjective Subjective Notes Resting in bed COCO Aiken at bedside from Wound Team to do dressing Objective Vitals/I&O Vital Signs Date Time Temp Pulse Resp B/P (MAP) Pulse Ox O2 Delivery O2 Flow Rate FiO2 12/14/17 14:20 18 12/14/17 12:00 97.4 84 138/90 (106) 95 12/12/17 18:20 Room Air Labs Laboratory Tests Test 12/14/17 13:30 White Blood Count 7.1 Red Blood Count 5.15 Hemoglobin 12.8 Hematocrit 39.8 Mean Corpuscular Volume 77.2 Mean Corpuscular Hemoglobin 24.8 Mean Corpuscular Hemoglobin Concent 32.1 Red Cell Distribution Width 12.7 Platelet Count 376 Mean Platelet Volume 7.7 Neutrophils (%) (Auto) 61.2 Lymphocytes (%) (Auto) 27.7 Monocytes (%) (Auto) 7.3 Eosinophils (%) (Auto) 3.2 Basophils (%) (Auto) 0.6 Neutrophils # (Auto) 4.4 Lymphocytes # (Auto) 2.0 Monocytes # (Auto) 0.5 Eosinophils # (Auto) 0.2 Basophils # (Auto) 0.0 CBC Comment DIFF FINAL Differential Comment Blood Urea Nitrogen 9 Creatinine 0.60 Random Glucose 321 Calcium Level 8.6 Sodium Level 134 Potassium Level 3.8 Chloride Level 98 Carbon Dioxide Level 27.4 Anion Gap 9 Estimat Glomerular Filtration Rate 146 Date/Time Source Procedure Growth Status 12/11/17 19:00 Blood Peripheral Aerobic Blood Culture - Preliminary NO GROWTH IN 3 DAYS Resulted 12/11/17 19:00 Blood Peripheral Anaerobic Blood Culture - Preliminary NO GROWTH IN 3 DAYS Resulted 12/12/17 17:08 Abscess Leg Gram Stain - Final Resulted 12/12/17 17:08 Wound Culture - Preliminary Viridans Streptococcus Grp Resulted Radiology Last 48 hours Impressions Lower Extremity CT 12/11/17 0000 Signed Impressions: Service Date/Time: Monday, December 11, 2017 13:20 - CONCLUSION: Small less than 1 cm fluid collection present in the soft tissues anterior calf with apparent thrombophlebitis of varicosities.. Ultrasound may help in the diagnosis. Matt Lu MD FACR Cardiovascular: Regular Lungs: Clear Abdomen: Non-distended, Non-tender Extremities: Other Narrative Exam RIGHT leg --- dressing removed; Wound bed with red beefy tissue; no residual fluid A/P Assessment and Plan 47 year old male POD2 I&D of RIGHT leg -Dressing removed; plan for Wound Vac on today; change Sunday -Pain control -Diabetic diet -Continue antibiotics -ID following -GS will sign off Mayela Kilgore/Pathological Technician ARNP Dec 14, 2017 15:54
[2017-12-14] MEDS: POLYSACCHARIDE IRON COMPLEX 150 MG CAP PO SCH ×2 (17:44→21:00)
[2017-12-14] MEDS: IBUPROFEN 400 MG TAB PO PRN (18:17)
--- NOTE | 2017-12-14 19:59 | HHI.IDPN ---
Subjective Subjective Remarks S/p I+D by Dr Santana op findings: copious pus apparently hardware was not eposed vir strep in wound and blood clx (09/27) Antibiotics azactam, vanco Allergies: Coded Allergies: carbamazepine (Verified Allergy, Severe, HIVES, 12/10/17) cephalexin (Verified Allergy, Severe, Rash, 12/10/17) erythromycin base (Verified Allergy, Severe, RASH, 12/10/17) penicillin G (Verified Allergy, Severe, RASH, 12/10/17) phenytoin (Verified Allergy, Severe, RASH, 12/10/17) hydrocodone (Verified Allergy, Unknown, HIVES, 12/10/17) acetaminophen (Verified Adverse Reaction, Severe, "UPSETS HIS STOMACH", ) ALLERGIC TO CODEINE NOT THE ACETAMINOPHEN codeine (Verified Adverse Reaction, Severe, "UPSETS HIS STOMACH", 12/10/17) ALLERGIC TO CODEINE NOT THE ACETAMINOPHEN *MDRO Multi-Drug Resistant Organism (Verified Adverse Reaction, Unknown, ) 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 Vital Signs Date Time Temp Pulse Resp B/P (MAP) Pulse Ox O2 Delivery O2 Flow Rate FiO2 12/14/17 19:17 18 12/14/17 18:44 18 12/14/17 17:47 97.6 12/14/17 16:00 99.4 84 18 144/81 (102) 96 12/14/17 15:33 18 12/14/17 12:00 97.4 84 18 138/90 (106) 95 12/14/17 09:37 18 12/14/17 08:00 99.2 77 18 142/99 (113) 95 12/14/17 05:40 97.0 78 20 131/96 (108) 95 12/14/17 00:00 98.4 73 20 161/106 (124) 97 12/13/17 20:00 99.1 84 20 159/107 (124) 98 12/14/17 12/14/17 12/15/17 15:00 23:00 07:00 Intake Total 720 ml Output Total 700 ml Balance 20 ml Intake Oral 720 ml Output Urine Total 700 ml . Laboratory Tests Test 12/14/17 13:30 White Blood Count 7.1 TH/MM3 Red Blood Count 5.15 MIL/MM3 Hemoglobin 12.8 GM/DL Hematocrit 39.8 % Mean Corpuscular Volume 77.2 FL Mean Corpuscular Hemoglobin 24.8 PG Mean Corpuscular Hemoglobin Concent 32.1 % Red Cell Distribution Width 12.7 % Platelet Count 376 TH/MM3 Mean Platelet Volume 7.7 FL Neutrophils (%) (Auto) 61.2 % Lymphocytes (%) (Auto) 27.7 % Monocytes (%) (Auto) 7.3 % Eosinophils (%) (Auto) 3.2 % Basophils (%) (Auto) 0.6 % Neutrophils # (Auto) 4.4 TH/MM3 Lymphocytes # (Auto) 2.0 TH/MM3 Monocytes # (Auto) 0.5 TH/MM3 Eosinophils # (Auto) 0.2 TH/MM3 Basophils # (Auto) 0.0 TH/MM3 CBC Comment DIFF FINAL Differential Comment Laboratory Tests Test 12/14/17 13:30 Blood Urea Nitrogen 9 MG/DL Creatinine 0.60 MG/DL Random Glucose 321 MG/DL Calcium Level 8.6 MG/DL Sodium Level 134 MEQ/L Potassium Level 3.8 MEQ/L Chloride Level 98 MEQ/L Carbon Dioxide Level 27.4 MEQ/L Anion Gap 9 MEQ/L Estimat Glomerular Filtration Rate 146 ML/MIN Microbiology Date/Time Source Procedure Growth Status 12/12/17 17:08 Abscess Leg Gram Stain - Final Resulted 12/12/17 17:08 Wound Culture - Preliminary Viridans Streptococcus Grp Resulted Imaging Last Impressions Lower Extremity CT 12/11/17 0000 Signed Impressions: Service Date/Time: Monday, December 11, 2017 13:20 - CONCLUSION: Small less than 1 cm fluid collection present in the soft tissues anterior calf with apparent thrombophlebitis of varicosities.. Ultrasound may help in the diagnosis. Matt Lu MD FACR Chest X-Ray 12/10/17 1143 Signed Impressions: Service Date/Time: Sunday, December 10, 2017 11:59 - CONCLUSION: No acute disease. Matt Lu MD FACR Lower Extremity Ultrasound 12/10/17 0959 Signed Impressions: Service Date/Time: Sunday, December 10, 2017 10:53 - CONCLUSION: 4 cm inguinal nodes Negative for deep venous thrombosis. Matt Lu MD FACR Lower Extremity MRI 12/10/17 0000 Signed Impressions: Service Date/Time: Sunday, December 10, 2017 15:57 - CONCLUSION: Negative for abscess. MRI with metal implants is impossible to interpret because of artifact. Significant portion of the leg is not evaluated. Matt Lu MD FACR Physical Exam CONSTITUTIONAL/GENERAL: This is a morbidly obese patient, in mild- moderate distress 2/2 apparent distress. TUBES/LINES/DRAINS: SKIN: No jaundice, rashes, or lesions. Skin temperature appropriate. Not diaphoretic. CARDIOVASCULAR: Regular rate and rhythm without murmurs, gallops, or rubs. No JVD. Peripheral pulses symmetric. RESPIRATORY/CHEST: Symmetric, unlabored respirations. Clear to auscultation. Breath sounds equal bilaterally. No wheezes, rales, or rhonchi. GASTROINTESTINAL: Abdomen soft, non-tender, nondistended. No hepato-splenomegaly , or palpable masses. No guarding. Bowel sounds present. MUSCULOSKELETAL: Extremities without clubbing, cyanosis, RLE edema improved, etrythema also imprved, peat shredder tender t palpation VAC in place with serosang d/c NEUROLOGICAL: Awake and alert. Motor and sensory grossly within normal limits. Follows commands. Cognitively sharp. Moves all extremities. PSYCHIATRIC: No obvious anxiety/depression. no apparent hallucinations or other psychotic thought process. Assessment & Plan Remarks Abscess phlegmone, cellulitis , R ankle, viridans strep s/p I+D clindamycin S Infection does not appear to be tracking to hardware Bacteremia, vir strep , sepsis 2/2 infection - cont vanco dc azactam when ready to go home will switch to oral clindamycin dw Dr Marylu Santana appreciate surgery help. Jayna Melgoza MD Dec 14, 2017 19:59
[2017-12-14] MEDS: MORPHINE SULFATE 30 MG CONTROLLED RELEASE TAB PO SCH (22:02)
[2017-12-15 01:06] VITALS: BP 153/92; PULSE 83; RESP 16; TEMP 98; O2SAT 95
[2017-12-15] MEDS: MORPHINE SULFATE 15 MG TAB PO PRN ×6 (01:54→22:32)
[2017-12-15] MEDS: VANCOMYCIN INJ 2,200 MG in SODIUM CHLORID 0.9% 500 ML INJ 500 ML IV SCH ×3 (01:55→20:39)
[2017-12-15] MEDS: MORPHINE SULFATE 2 MG/ML INJ IV PUSH PRN ×2 (03:58→15:23)
[2017-12-15 08:00] VITALS: BP 147/105; PULSE 82; RESP 18; TEMP 97.8; O2SAT 96
[2017-12-15] MEDS: INSULIN ASPART SUPPLEMENTAL SCALE SQ SCH ×4 (08:00→20:41)
[2017-12-15] MEDS: POLYSACCHARIDE IRON COMPLEX 150 MG CAP PO SCH ×2 (08:27→20:27)
[2017-12-15] MEDS: MORPHINE SULFATE 30 MG CONTROLLED RELEASE TAB PO SCH ×2 (08:27→20:27)
[2017-12-15] MEDS: INSULIN DETEMIR 100 UNITS/ML VIAL SQ SCH ×2 (08:27→20:40)
[2017-12-15] MEDS: DOCUSATE SODIUM 50 MG/SENNA 8.6 MG TAB PO SCH ×2 (08:27→20:27)
[2017-12-15] MEDS: SODIUM CHLORIDE 0.9% FLUSH 10 ML FLUSH IV FLUSH SCH ×2 (08:28→20:40)
[2017-12-15] MEDS ORDERED: VANCOMYCIN TROUGH ONE (08:45)
[2017-12-15 09:20] LABS: CREATININE 0.58 MG/DL (0.60-1.30)
[2017-12-15 11:41] LABS: VANCOMYCIN TROUGH 17.7 MCG/ML (5.0-10.0)
--- NOTE | 2017-12-15 12:54 | HHI.PR ---
Subjective Remarks Follow-up right lower extremity cellulitis, chronic lower back pain and diabetes. Postop day #3. Patient seen and examined lying in bed comfortably, pain is well controlled on current pain regimen. Wound VAC is continued but no problems overnight. Vital signs are stable. Continue to monitor. Objective Vitals Vital Signs Date Time Temp Pulse Resp B/P (MAP) Pulse Ox O2 Delivery O2 Flow Rate FiO2 12/15/17 11:34 18 12/15/17 09:27 18 12/15/17 08:00 97.8 82 18 147/105 (119) 96 12/15/17 04:24 12/15/17 04:03 18 12/15/17 01:06 98.0 83 16 153/92 (112) 95 12/14/17 22:07 97.9 81 18 136/95 (109) 93 12/14/17 19:17 18 12/14/17 17:47 97.6 12/14/17 16:00 99.4 84 18 144/81 (102) 96 I/O 12/14/17 12/14/17 12/14/17 12/15/17 12/15/17 12/15/17 07:00 15:00 23:00 07:00 15:00 23:00 Intake Total 960 ml 720 ml 360 ml Output Total 1725 ml 700 ml 1450 ml 500 ml Balance -765 ml 20 ml -1450 ml -140 ml Intake Oral 960 ml 720 ml 360 ml Output Urine Total 1725 ml 700 ml 1450 ml 500 ml # Voids 3 # Bowel Movements 0 0 Result Diagram: 12/14/17 1330 12/15/17 0845 Imaging Last Impressions Lower Extremity CT 12/11/17 0000 Signed Impressions: Service Date/Time: Monday, December 11, 2017 13:20 - CONCLUSION: Small less than 1 cm fluid collection present in the soft tissues anterior calf with apparent thrombophlebitis of varicosities.. Ultrasound may help in the diagnosis. Matt Lu MD FACR Chest X-Ray 12/10/17 1143 Signed Impressions: Service Date/Time: Sunday, December 10, 2017 11:59 - CONCLUSION: No acute disease. Matt Lu MD FACR Lower Extremity Ultrasound 12/10/17 0959 Signed Impressions: Service Date/Time: Sunday, December 10, 2017 10:53 - CONCLUSION: 4 cm inguinal nodes Negative for deep venous thrombosis. Matt Lu MD FACR Lower Extremity MRI 12/10/17 0000 Signed Impressions: Service Date/Time: Sunday, December 10, 2017 15:57 - CONCLUSION: Negative for abscess. MRI with metal implants is impossible to interpret because of artifact. Significant portion of the leg is not evaluated. Matt Lu MD FACR Objective Remarks GENERAL: Well-developed, well-nourished patient. Lying in bed comfortably. SKIN: Warm and dry. No rash. HEAD: Normocephalic. Atraumatic. EYES: Pupils equal and round. No scleral icterus. No injection or drainage. ENT: No nasal bleeding or discharge. Mucous membranes pink and moist. NECK: Supple. Trachea midline. CARDIOVASCULAR: Regular rate and rhythm. S1, S2 noted. No murmur appreciated. RESPIRATORY: No accessory muscle use. Clear to auscultation. Breath sounds equal bilaterally. GASTROINTESTINAL: Abdomen soft, non-tender, nondistended. Normoactive bowel sounds x4. MUSCULOSKELETAL: Extremities without clubbing, cyanosis. Right lower extremity with Royal bandage in place and elevated. No numbness or tingling, sensation intact. NEUROLOGICAL: Awake and alert. No obvious cranial nerve deficits. Motor grossly within normal limits. 5/5 muscle strength in bilateral upper and lower extremities. Normal speech. PSYCHIATRIC: Appropriate mood and affect; insight and judgment normal. A/P Problem List: (1) Cellulitis ICD Code: L03.90 - Cellulitis Status: Acute Plan: Right lower extremity MRI reviewed showing no abscess. MRI with metal implants is impossible to interpret because of artifact. Lower extremity CT done showing small less than 1 centimeter fluid collection. General surgery to OR for debridement, postop day #3. We will continue with IV antibiotics. Continue to monitor for infection. Lactic acid normal. Leukocytosis improved. Continue IV narcotics for pain. Will adjust pain medication regimen and add long-acting p.o. pain well controlled. Consult placed infectious disease. Appreciate input recommendations. Continue Azactam and Vanco. Blood cultures on 12/10/17 growing Viridans Streptococcus in anaerobic bottle. Repeat blood cultures are negative. Wound culture growing viridian Streptococcus. Awaiting sensitivity. (2) Chronic lower back pain ICD Code: M54.5 - Chronic low back pain; G89.29 - Other chronic pain Status: Chronic Plan: We will continue with patient's home medications for pain (3) Diabetes mellitus ICD Code: E11.9 - Type 2 diabetes mellitus without complications Status: Chronic Plan: Continue with diabetic sliding scale Continue with diabetic diet and adjust insulin as needed Hold home metformin Hemoglobin A1c 12.7 DVT prophylaxis: Heparin. Discharge Planning Wound care will assess wound on Sunday and determine if wound VAC as needed for discharge. Ginger Zavala Dec 15, 2017 12:54
[2017-12-15 18:00] VITALS: BP 151/104; PULSE 79; RESP 16; TEMP 97.8
[2017-12-15 22:21] VITALS: BP 144/92; PULSE 90; RESP 18; TEMP 98.8; O2SAT 95
[2017-12-16 00:47] VITALS: BP 126/81; PULSE 84; RESP 16; TEMP 97.8; O2SAT 94
[2017-12-16] MEDS: VANCOMYCIN INJ 2,200 MG in SODIUM CHLORID 0.9% 500 ML INJ 500 ML IV SCH ×3 (04:27→19:46)
[2017-12-16] MEDS: MORPHINE SULFATE 2 MG/ML INJ IV PUSH PRN ×2 (04:28→16:24)
[2017-12-16] MEDS: MORPHINE SULFATE 15 MG TAB PO PRN ×4 (06:03→19:46)
--- NOTE | 2017-12-16 07:45 | HHI.PR ---
Subjective Remarks Follow-up right lower extremity cellulitis. Patient seen and examined, lying in bed comfortably. Pain is controlled, has been able to get out of bed and ambulate some in room. Eating well. Denies any acute events overnight. Wound VAC continued. Awaiting further recommendations tomorrow from wound care nurse and general surgery for discharge planning in wound care Recs. Vital signs are stable. Objective Vitals Vital Signs Date Time Temp Pulse Resp B/P (MAP) Pulse Ox O2 Delivery O2 Flow Rate FiO2 12/16/17 04:24 12/16/17 00:47 97.8 84 16 126/81 (96) 94 12/15/17 22:21 98.8 90 18 144/92 (109) 95 12/15/17 18:00 97.8 79 16 151/104 (120) 12/15/17 15:28 18 12/15/17 15:25 18 12/15/17 09:27 18 12/15/17 08:00 97.8 82 18 147/105 (119) 96 I/O 12/15/17 12/15/17 12/15/17 12/16/17 12/16/17 12/16/17 07:00 15:00 23:00 07:00 15:00 23:00 Intake Total 360 ml 1000 ml 500 ml Output Total 1450 ml 1700 ml 300 ml 1800 ml Balance -1450 ml -1340 ml 700 ml -1800 ml 500 ml Intake Oral 360 ml IV Total 1000 ml 500 ml Output Urine Total 1450 ml 1700 ml 300 ml 1800 ml # Bowel Movements 0 1 Result Diagram: 12/14/17 1330 12/15/17 0845 Imaging Last Impressions Lower Extremity CT 12/11/17 0000 Signed Impressions: Service Date/Time: Monday, December 11, 2017 13:20 - CONCLUSION: Small less than 1 cm fluid collection present in the soft tissues anterior calf with apparent thrombophlebitis of varicosities.. Ultrasound may help in the diagnosis. Matt Lu MD FACR Chest X-Ray 12/10/17 1143 Signed Impressions: Service Date/Time: Sunday, December 10, 2017 11:59 - CONCLUSION: No acute disease. Matt Lu MD FACR Lower Extremity Ultrasound 12/10/17 0959 Signed Impressions: Service Date/Time: Sunday, December 10, 2017 10:53 - CONCLUSION: 4 cm inguinal nodes Negative for deep venous thrombosis. Matt Lu MD FACR Lower Extremity MRI 12/10/17 0000 Signed Impressions: Service Date/Time: Sunday, December 10, 2017 15:57 - CONCLUSION: Negative for abscess. MRI with metal implants is impossible to interpret because of artifact. Significant portion of the leg is not evaluated. Matt Lu MD FACR Objective Remarks GENERAL: Well-developed, well-nourished patient. Lying in bed comfortably. SKIN: Warm and dry. No rash. HEAD: Normocephalic. Atraumatic. EYES: Pupils equal and round. No scleral icterus. No injection or drainage. ENT: No nasal bleeding or discharge. Mucous membranes pink and moist. NECK: Supple. Trachea midline. CARDIOVASCULAR: Regular rate and rhythm. S1, S2 noted. No murmur appreciated. RESPIRATORY: No accessory muscle use. Clear to auscultation. Breath sounds equal bilaterally. GASTROINTESTINAL: Abdomen soft, non-tender, nondistended. Normoactive bowel sounds x4. MUSCULOSKELETAL: Extremities without clubbing, cyanosis. Right lower extremity with wound VAC in place and elevated. No numbness or tingling, sensation intact. NEUROLOGICAL: Awake and alert. No obvious cranial nerve deficits. Motor grossly within normal limits. 5/5 muscle strength in bilateral upper and lower extremities. Normal speech. PSYCHIATRIC: Appropriate mood and affect; insight and judgment normal. A/P Problem List: (1) Cellulitis ICD Code: L03.90 - Cellulitis Status: Acute Plan: Right lower extremity MRI reviewed showing no abscess. MRI with metal implants is impossible to interpret because of artifact. Lower extremity CT done showing small less than 1 centimeter fluid collection. General surgery to OR for debridement, postop day #4. We will continue with IV antibiotics. Continue to monitor for infection. Lactic acid normal. Leukocytosis improved. Continue IV narcotics for pain. Will adjust pain medication regimen and add long-acting p.o. pain well controlled. Consult placed infectious disease. Appreciate input recommendations. Continue Vanco. DC Azactam. When ready for discharge patient will be switched to oral clindamycin. Blood cultures on 12/10/17 growing Viridans Streptococcus in anaerobic bottle. Repeat blood cultures are negative. (2) Chronic lower back pain ICD Code: M54.5 - Chronic low back pain; G89.29 - Other chronic pain Status: Chronic Plan: We will continue with patient's home medications for pain (3) Diabetes mellitus ICD Code: E11.9 - Type 2 diabetes mellitus without complications Status: Chronic Plan: Continue with diabetic sliding scale Continue with diabetic diet and adjust insulin as needed Hold home metformin Hemoglobin A1c 12.7 DVT prophylaxis: Heparin. Discharge Planning Wound care will assess wound on Sunday and determine if wound VAC as needed for discharge. Ginger Zavala Dec 16, 2017 07:45
[2017-12-16 07:50] VITALS: BP 136/88; PULSE 80; RESP 20; TEMP 97.5; O2SAT 97
[2017-12-16] MEDS: INSULIN ASPART SUPPLEMENTAL SCALE SQ SCH ×4 (08:00→21:00)
[2017-12-16] MEDS: INSULIN DETEMIR 100 UNITS/ML VIAL SQ SCH ×2 (08:07→21:00)
[2017-12-16] MEDS: MORPHINE SULFATE 30 MG CONTROLLED RELEASE TAB PO SCH ×2 (08:08→21:56)
[2017-12-16] MEDS: POLYSACCHARIDE IRON COMPLEX 150 MG CAP PO SCH ×2 (08:08→21:55)
[2017-12-16] MEDS: SODIUM CHLORIDE 0.9% FLUSH 10 ML FLUSH IV FLUSH SCH ×2 (09:00→19:46)
[2017-12-16] MEDS: DOCUSATE SODIUM 50 MG/SENNA 8.6 MG TAB PO SCH ×2 (09:00→21:55)
[2017-12-16] MEDS ORDERED: WALKER/EXTENDED1 MIS (10:15)
--- NOTE | 2017-12-16 10:16 | HHI.FF ---
Face to Face Verification Diagnosis: (1) Cellulitis Home Health Nursing Order: Medical education Signs/symptoms of disease process Medication education-adverse effect Wound care and dressing changes Nursing assessment with vital signs Instructions: 1. Please cleanse wound to R medial palafox with normal saline or wound cleanser and pat dry. 2. Apply Calcium alginate cut to fit wound base ,Cover with dry gauze secured with rolled gauze and tape and change dressing every 2 days or PRN if saturated or dislodged. 3. Follow up with out patient wound center I have seen patient Emery Agrawal on 12/16/17. My clinical findings support the need for the requested home health care services because: Deconditioned w/ increased weakness Limited ability to care for self I certify that my clinical findings support that this patient is homebound because: Unsteady gait/balance Ginger Zavala Dec 16, 2017 10:16
[2017-12-16 11:50] VITALS: BP 135/91; PULSE 77; RESP 20; TEMP 99; O2SAT 96
[2017-12-16] MEDS: IBUPROFEN 400 MG TAB PO PRN (13:47)
[2017-12-16] MEDS ORDERED: ALTEPLASE RECOMBINANT 2 MG VIAL INTRACATH PRN (14:15)
[2017-12-16 15:50] VITALS: BP 128/83; PULSE 79; RESP 20; TEMP 97.7; O2SAT 96
[2017-12-16 20:00] VITALS: BP 117/81; PULSE 82; RESP 22; TEMP 99.2; O2SAT 94
[2017-12-17] VITALS: BP 121/85; PULSE 79; RESP 19; TEMP 99; O2SAT 96
[2017-12-17] MEDS: MORPHINE SULFATE 15 MG TAB PO PRN ×4 (01:56→15:08)
[2017-12-17] MEDS: VANCOMYCIN INJ 2,200 MG in SODIUM CHLORID 0.9% 500 ML INJ 500 ML IV SCH ×2 (04:06→12:34)
[2017-12-17] MEDS: MORPHINE SULFATE 2 MG/ML INJ IV PUSH PRN (04:18)
[2017-12-17 06:47] LABS: CREATININE 0.52 MG/DL (0.60-1.30)
[2017-12-17 07:50] VITALS: BP 146/98; PULSE 77; RESP 20; TEMP 96.6; O2SAT 98
[2017-12-17] MEDS: MORPHINE SULFATE 30 MG CONTROLLED RELEASE TAB PO SCH (09:03)
[2017-12-17] MEDS: DOCUSATE SODIUM 50 MG/SENNA 8.6 MG TAB PO SCH (09:03)
[2017-12-17] MEDS: POLYSACCHARIDE IRON COMPLEX 150 MG CAP PO SCH (09:03)
[2017-12-17] MEDS: SODIUM CHLORIDE 0.9% FLUSH 10 ML FLUSH IV FLUSH SCH (09:04)
[2017-12-17] MEDS: INSULIN DETEMIR 100 UNITS/ML VIAL SQ SCH (09:04)
[2017-12-17] MEDS: INSULIN ASPART SUPPLEMENTAL SCALE SQ SCH ×3 (09:04→17:57)
--- NOTE | 2017-12-17 09:10 | HHI.PR ---
Subjective Remarks Follow-up right lower extremity cellulitis. Patient seen and examined, lying in bed comfortably. States he is much improved. Denies any pain. Awaiting wound care nurse to remove wound VAC and further recommendations for discharge. Will anticipate discharge today. Patient clinically improved. No acute events. Labs stable. Afebrile. Vital signs stable. Objective Vitals Vital Signs Date Time Temp Pulse Resp B/P (MAP) Pulse Ox O2 Delivery O2 Flow Rate FiO2 12/17/17 07:50 96.6 77 20 146/98 (114) 98 12/17/17 04:23 18 12/17/17 02:56 18 12/17/17 00:00 99.0 79 19 121/85 (97) 96 12/16/17 22:56 18 12/16/17 20:00 99.2 82 22 117/81 (93) 94 12/16/17 15:50 97.7 79 20 128/83 (98) 96 12/16/17 14:47 20 12/16/17 11:50 99.0 77 20 135/91 (106) 96 I/O 12/16/17 12/16/17 12/16/17 12/17/17 12/17/17 12/17/17 07:00 15:00 23:00 07:00 15:00 23:00 Intake Total 500 ml Output Total 1800 ml 500 ml Balance -1800 ml 500 ml -500 ml IV Total 500 ml Output Urine Total 1800 ml 500 ml # Bowel Movements 1 Result Diagram: 12/14/17 1330 12/17/17 0600 Imaging Last Impressions Lower Extremity CT 12/11/17 0000 Signed Impressions: Service Date/Time: Monday, December 11, 2017 13:20 - CONCLUSION: Small less than 1 cm fluid collection present in the soft tissues anterior calf with apparent thrombophlebitis of varicosities.. Ultrasound may help in the diagnosis. Matt Lu MD FACR Chest X-Ray 12/10/17 1143 Signed Impressions: Service Date/Time: Sunday, December 10, 2017 11:59 - CONCLUSION: No acute disease. Matt Lu MD FACR Lower Extremity Ultrasound 12/10/17 0959 Signed Impressions: Service Date/Time: Sunday, December 10, 2017 10:53 - CONCLUSION: 4 cm inguinal nodes Negative for deep venous thrombosis. Matt Lu MD FACR Lower Extremity MRI 12/10/17 0000 Signed Impressions: Service Date/Time: Sunday, December 10, 2017 15:57 - CONCLUSION: Negative for abscess. MRI with metal implants is impossible to interpret because of artifact. Significant portion of the leg is not evaluated. Matt Lu MD FACR Objective Remarks GENERAL: Well-developed, well-nourished patient. Lying in bed comfortably. SKIN: Warm and dry. No rash. HEAD: Normocephalic. Atraumatic. EYES: Pupils equal and round. No scleral icterus. No injection or drainage. ENT: No nasal bleeding or discharge. Mucous membranes pink and moist. NECK: Supple. Trachea midline. CARDIOVASCULAR: Regular rate and rhythm. S1, S2 noted. No murmur appreciated. RESPIRATORY: No accessory muscle use. Clear to auscultation. Breath sounds equal bilaterally. GASTROINTESTINAL: Abdomen soft, non-tender, nondistended. Normoactive bowel sounds x4. MUSCULOSKELETAL: Extremities without clubbing, cyanosis. Right lower extremity with wound VAC in place and elevated. No numbness or tingling, sensation intact. NEUROLOGICAL: Awake and alert. No obvious cranial nerve deficits. Motor grossly within normal limits. 5/5 muscle strength in bilateral upper and lower extremities. Normal speech. PSYCHIATRIC: Appropriate mood and affect; insight and judgment normal. A/P Problem List: (1) Cellulitis ICD Code: L03.90 - Cellulitis Status: Acute Plan: Right lower extremity MRI reviewed showing no abscess. MRI with metal implants is impossible to interpret because of artifact. Lower extremity CT done showing small less than 1 centimeter fluid collection. General surgery to OR for debridement. We will continue with IV antibiotics. Continue to monitor for infection. Lactic acid normal. Leukocytosis improved. Continue IV narcotics for pain. Will adjust pain medication regimen and add long-acting p.o. pain well controlled. Consult placed infectious disease. Appreciate input recommendations. Continue Vanco. DC Azactam. When ready for discharge patient will be switched to oral clindamycin. Blood cultures on 12/10/17 growing Viridans Streptococcus in anaerobic bottle. Repeat blood cultures are negative. (2) Chronic lower back pain ICD Code: M54.5 - Chronic low back pain; G89.29 - Other chronic pain Status: Chronic Plan: We will continue with patient's home medications for pain (3) Diabetes mellitus ICD Code: E11.9 - Type 2 diabetes mellitus without complications Status: Chronic Plan: Continue with diabetic sliding scale Continue with diabetic diet and adjust insulin as needed Hold home metformin Hemoglobin A1c 12.7 DVT prophylaxis: Heparin. Discharge Planning Wound care will assess wound on Sunday and determine if wound VAC as needed for discharge. Ginger Zavala Dec 17, 2017 09:10
[2017-12-17 11:50] VITALS: BP 129/90; PULSE 75; RESP 20; TEMP 97.5; O2SAT 95
[2017-12-17] MEDS ORDERED: PROPOFOL 200 MG/20 ML AMP IV ONE (12:00)
[2017-12-17] MEDS ORDERED: HYDROmorphone HCL PF 1 MG/ML VIAL IV PUSH ONE (14:15)
[2017-12-17] MEDS ORDERED: CLIN300C5 PO (14:50)
--- NOTE | 2017-12-17 15:06 | PD.WCN.NOT ---
Wound Consult Description: Follow up for Wound vac change Communicated with: Lela SEPULVEDA 3rd floor [facility], Aileen BAILEY Recommendation: 1. Please cleanse wound to R medial palafox with normal saline or wound cleanser and pat dry. 2. Apply Calcium alginate cut to fit wound base ,Cover with dry gauze secured with rolled gauze and tape and change dressing every 2 days or PRN if saturated or dislodged. 3. Follow up with out patient wound center Additional Information: Patient was seen today on 3rd floor [facility] by newswriter for follow up of Right distal palafox VAC placement.Patient alert and oriented x3.Wound VAC Dressing removed from R distal palafox with discomfort noted.Wound covered till order obtained for 1 time dose of pain medication.Wound cleansed with wound cleanser pat dry.Wound base is 90% beefy red granular tissue 10% fascia wound margins are well defined sloped.Wound measures 3.8cm x 1.8cm x 0.6cm.Erythema noted to periwound ~1.0cm circumferentially.Scant serosanguineous drainage noted without odor. skin prep applied to periwound calcium alginate cut to fit wound base applied and covered with dry gauze secured with rolled gauze/tape.Sign and dated.Supplies left with patient to perform own wound care. Juan R Eugene [facility] Dec 17, 2017 15:06
[2017-12-17] MEDS ORDERED: LEVEMIR SQ (15:10)
[2017-12-17] MEDS ORDERED: NU-IRON PO (15:10)
[2017-12-17] MEDS ORDERED: METF500T PO (15:12)
[2017-12-17] MEDS ORDERED: HYDR25TA5 PO (15:12)
[2017-12-17] MEDS ORDERED: LISI-515 PO (15:12)
--- NOTE | 2017-12-17 15:16 | HHI.DS ---
Discharge Summary Admission Date Dec 13, 2017 at 10:32 Discharge Date: Dec 17, 2017 Admitting Diagnosis RLE CELLULITIS (DIFFICULT ACCESS S/P LEFT SUBCLAVIAN CENTRAL LINE) (1) Cellulitis ICD Code: L03.90 - Cellulitis Status: Acute (2) Chronic lower back pain ICD Code: M54.5 - Chronic low back pain; G89.29 - Other chronic pain Status: Chronic (3) Diabetes mellitus ICD Code: E11.9 - Type 2 diabetes mellitus without complications Status: Chronic Procedures Please see below Brief History - From Admission This patient is a 47-year-old gentleman with a history of diabetes who had a week of severe and progressive right lower extremity discomfort and pain and swelling. He says he hit his ankle in the anterior aspect and noted a lump developed but then over the last 48 hours his leg is gotten red and swollen and there is pink dry running up his knee. The patient says he has had a history of ankle surgery in the past on that side but has not had a problem. The surgery was over 20 years ago and he has arthritis at times but never has had any problems specifically with that. He denies any fevers or chills. He has come to the emergency room [place] by his mom says that he has not been able to put any pressure on his leg and is been doing very poorly since the infection appeared to get worse. Patient has been given some vancomycin and some pain medication and the pain has improved somewhat. There is still quite a bit of swelling. For the reason the patient is admitted to the hospital CBC/BMP: 12/14/17 1330 12/17/17 0600 Significant Findings Laboratory Tests Test 12/15/17 08:45 12/17/17 06:00 Creatinine 0.58 MG/DL (0.60-1.30) 0.52 MG/DL (0.60-1.30) Vancomycin Level Trough 17.7 MCG/ML (5.0-10.0) Imaging Last Impressions Lower Extremity CT 12/11/17 0000 Signed Impressions: Service Date/Time: Monday, December 11, 2017 13:20 - CONCLUSION: Small less than 1 cm fluid collection present in the soft tissues anterior calf with apparent thrombophlebitis of varicosities.. Ultrasound may help in the diagnosis. Matt Lu MD FACR Chest X-Ray 12/10/17 1143 Signed Impressions: Service Date/Time: Sunday, December 10, 2017 11:59 - CONCLUSION: No acute disease. Matt Lu MD FACR Lower Extremity Ultrasound 12/10/17 0959 Signed Impressions: Service Date/Time: Sunday, December 10, 2017 10:53 - CONCLUSION: 4 cm inguinal nodes Negative for deep venous thrombosis. Matt Lu MD FACR Lower Extremity MRI 12/10/17 0000 Signed Impressions: Service Date/Time: Sunday, December 10, 2017 15:57 - CONCLUSION: Negative for abscess. MRI with metal implants is impossible to interpret because of artifact. Significant portion of the leg is not evaluated. Matt Lu MD FACR PE at Discharge GENERAL: Well-developed, well-nourished patient. Lying in bed comfortably. SKIN: Warm and dry. No rash. HEAD: Normocephalic. Atraumatic. EYES: Pupils equal and round. No scleral icterus. No injection or drainage. ENT: No nasal bleeding or discharge. Mucous membranes pink and moist. NECK: Supple. Trachea midline. CARDIOVASCULAR: Regular rate and rhythm. S1, S2 noted. No murmur appreciated. RESPIRATORY: No accessory muscle use. Clear to auscultation. Breath sounds equal bilaterally. GASTROINTESTINAL: Abdomen soft, non-tender, nondistended. Normoactive bowel sounds x4. MUSCULOSKELETAL: Extremities without clubbing, cyanosis. Right lower extremity with wound VAC in place and elevated. No numbness or tingling, sensation intact. NEUROLOGICAL: Awake and alert. No obvious cranial nerve deficits. Motor grossly within normal limits. 5/5 muscle strength in bilateral upper and lower extremities. Normal speech. PSYCHIATRIC: Appropriate mood and affect; insight and judgment normal. Hospital Course Patient presented with right lower extremity cellulitis, MRI of the lower extremity was performed showing no abscess metal implants were impossible to interpret because of artifact. A lower extremity CT was done showing small less than 1 cm fluid collection. General surgery took patient to OR for debridement. Patient was placed with a wound VAC postoperatively for 3 days and upon discharge patient had adequate granulation and wound and recommendations from wound care nurse to perform wet-to-dry dressings. As ordered. During hospitalization patient was given IV antibiotics and labs monitored. IV narcotics were given at one point in tapered down to long-acting p.o. pain medications. Infectious disease was consulted with recommendations for IV vancomycin IV Azactam when he was here in the hospital and changed to oral clindamycin due to penicillin allergy for discharge. Blood cultures grew gradient Streptococcus and anaerobic bottles. Repeat blood cultures are negative. Patient is a diabetic hemoglobin A1c was checked and 12.7. He was placed on a diabetic diet and sliding scale insulin. Metformin was resumed upon discharge. Patient is encouraged to follow-up with PCP and was ordered home health care for wound changes and wound monitoring. Patient has been educated on the importance of returning to the ED if wound is worsening or if infection is noted. Patient was stabilized and discharged. Pt Condition on Discharge: Stable Discharge Disposition: Disch w/ Home Health Serv Discharge Time: > 30 minutes Discharge Instructions DIET: Follow Instructions for: Heart Healthy Diet, Diabetic Diet Activities you can perform: Regular-No Restrictions Follow up Referrals: PCP Follow-up - 1 Week PCP Follow-up New Medications: Clindamycin (Clindamycin) 300 Mg Cap 300 MG PO Q6H for Infection for 14 Days, #56 CAP 0 Refills Walker/Extended Frame (Walker/Extended Frame) 1 Mis Mis EA .XX DIRECTED, #1 Bariatric walker Insulin Detemir Inj (Levemir Inj) 1,000 unit/ 10 ML Vial 35 UNITS SQ BID for DM for 60 Days, #1 VIAL 4 Refills Do not mix with any other Insulin. Morphine ER (Morphine ER) 30 Mg Tab 30 MG PO Q12HR for Pain Management for 5 Days, #10 TAB Morphine IR (Morphine IR) 15 Mg Tab 30 MG PO Q6H PRN for BREAKTHROUGH PAIN for 5 Days, #20 TAB Polysaccharide Iron Complex (Poly-Iron 150) 150 Mg Iron Cap 150 MG PO Q12HR for supplementation for 60 Days, #120 CAP Continued Medications: Hydrochlorothiazide (Hydrochlorothiazide) 25 Mg Tab 25 MG PO DAILY for hypertension for 60 Days, #60 TAB 3 Refills (This prescription has been renewed) Lisinopril (Lisinopril) 20 Mg Tab 20 MG PO DAILY for HTN for 60 Days, #60 TAB 2 Refills (This prescription has been renewed) Metformin (Metformin) 500 Mg Tab 1000 MG PO BIDPC for Blood Sugar Management for 60 Days, #120 TAB 3 Refills ( This prescription has been renewed) With meals Discontinued Medications: Insulin Detemir Inj (Levemir Inj) 1,000 unit/ 10 ML Vial 30 UNITS SQ BID for Blood Sugar Management for 30 Days, VIAL 4 Refills Do not mix with any other Insulin. Ginger Zavala Dec 17, 2017 15:16
[2017-12-17 15:30] VITALS: BP 118/95; PULSE 81; RESP 20; TEMP 97.1; O2SAT 97
[2017-12-17] MEDS ORDERED: MORP1TAB25 PO (17:04)
[2017-12-17] MEDS ORDERED: MSIR15 PO (17:04)
== END 2017-12-17 18:19 | disposition home health service (06) | DRG 603 ==
LOC: PHED 09:28 → PHEDA 12:33 → PH3A 16:21 → OBSVTOIN 12-13 10:32
PROVIDERS: ADMIT Hospitalist; ATTEND Hospitalist
PROC: 02HV33Z Insertion of Infusion Device into Superior Vena Cava, Percutaneous Approach (ICD-10-PCS; 2017-12-10)
PROC: 0J9N0ZX Drainage of Right Lower Leg Subcutaneous Tissue and Fascia, Open Approach, Diagnostic (ICD-10-PCS; principal; 2017-12-12 16:55)
PROC: 2W1QX6Z Compression of Right Lower Leg using Pressure Dressing (ICD-10-PCS; 2017-12-14)
DX: L03.115 Cellulitis of right lower limb (principal); E11.65 Type 2 diabetes mellitus with hyperglycemia; I10 Essential (primary) hypertension; B95.5 Unspecified streptococcus as the cause of diseases classified elsewhere; L02.415 Cutaneous abscess of right lower limb; G89.29 Other chronic pain; M54.5 Low back pain; G47.30 Sleep apnea, unspecified; E66.01 Morbid (severe) obesity due to excess calories; Z68.38 Body mass index [BMI] 38.0-38.9, adult; Z85.51 Personal history of malignant neoplasm of bladder; Z79.84 Long term (current) use of oral hypoglycemic drugs; Z83.3 Family history of diabetes mellitus; Z79.4 Long term (current) use of insulin; Z86.73 Personal history of transient ischemic attack (TIA), and cerebral infarction without residual deficits; Z88.0 Allergy status to penicillin
CPT/HCPCS: 36556; 71045; 73701; 73718; 80048; 80053; 80202; 82565; 82728; 82800; 82948; 83036; 83540; 83550; 83605; 85025; 85610; 85730; 87015; 87040; 87070; 87102; 87116; 87186; 87205; 87206; 93971; 96365; 96368; 96375; 96376; G0378; J1170; J1644; J1815; J2270; J2405; J2765; J2997; J3010; J3370; J7040; J7050; J7120; Q9967

== ENCOUNTER 2018-01-03 19:59 | Observation (INO) | payer SELFPAY ==
[~2018-01-03] VITALS: Ht 188 cm; Wt 140.0 kg
[~2018-01-03 19:59] MED LIST changes: -BACT800T5 PO; +CLIN300C5 PO; -GLIP10TA6 PO; +MORP1TAB25 PO; +MSIR15 PO; +NU-IRON PO; +WALKER/EXTENDED1 MIS
[2018-01-03 20:09] VITALS: BP 150/80; PULSE 80; RESP 18; TEMP 98.4; O2SAT 97
--- NOTE | 2018-01-03 20:44 | PD ---
HPI Chief Complaint: Skin Problem Time Seen by Provider: 20:42 Travel History International Travel<30 days: No Contact w/Intl Traveler<30days: No Traveled to known affect area: No History of Present Illness HPI 47-year-old male came to the emergency room with history of left lower extremity redness swelling and postsurgical wound not healing well. Patient says that he had a surgery in this hospital couple weeks ago and a piece of hardware was taken out. Patient was kept in the hospital with a wound VAC for 3 days and then discharged home on clindamycin. Patient is still taking the antibiotic. However today while he was taking a shower piece of scab fell off and there has been a hole and drainage from there. His home health care nurse recommended that he should come to the emergency room. The past 2 days he is also developed redness and pain around the area which is new. No history of fever or chills. Vital signs are stable. Patient is a diabetic and his sugars have been running in 200s. [facility] Past Medical History Narrative Medical List of his past medical, surgical, social and family history is reviewed from the nursing note. Arthritis: Yes Asthma: No Autoimmune Disease: No Blood Disorders: No Anxiety: No Depression: No Cancer: Yes Cardiovascular Problems: Yes (HTN) High Cholesterol: No Chemotherapy: Yes (2015) Chest Pain: No Congestive Heart Failure: No COPD: No Cerebrovascular Accident: Yes Diabetes: Yes (ON METFORMIN AND INSULIN) Diminished Hearing: No Endocrine: No Gastrointestinal Disorders: No Genitourinary: Yes (BLADDER CANCER) Headaches: Yes Hepatitis: Yes (HEPATITIS C) Hiatal Hernia: No Heparin Induced Thrombocytopen: No Hypertension: Yes Immune Disorder: No Implanted Vascular Access Dvce: Yes Kidney Stones: Yes Musculoskeletal: Yes (LOWER BACK DISC PROBLEM, ARTHRITIS) Neurologic: Yes (SEIZURES) Psychiatric: No Reproductive: No Respiratory: Yes (SLEEP APNEA) Migraines: No Radiation Therapy: Yes (2013) Renal Failure: No Seizures: Yes (HEAD INJURY) Sickle Cell Disease: No Sleep Apnea: Yes Thyroid Disease: No Past Surgical History Abdominal Surgery: Yes (APPENDECTOMY) AICD: No Appendectomy: Yes Arteriovenous Shunt: No Body Medical Devices: plate in right ankle, SHRAPNEL L THIGH Cardiac Surgery: No Ear Surgery: No Endocrine Surgery: No Eye Surgery: No Genitourinary Surgery: Yes (9 SURGERIES ON BLADDER cancer ) Gynecologic Surgery: No Hysterectomy: Yes Insulin Pump: No Joint Replacement: No Neurologic Surgery: No Oral Surgery: No Pacemaker: No Thoracic Surgery: No Other Surgery: Yes (appendectomy) Social History Alcohol Use: No Tobacco Use: No (quit 2006) 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) Allergies-Medications (Allergen,Severity, Reaction): Coded Allergies: carbamazepine (Verified Allergy, Severe, HIVES, 01/03/18) cephalexin (Verified Allergy, Severe, Rash, 01/03/18) erythromycin base (Verified Allergy, Severe, RASH, 01/03/18) penicillin G (Verified Allergy, Severe, RASH, 01/03/18) phenytoin (Verified Allergy, Severe, RASH, 01/03/18) hydrocodone (Verified Allergy, Unknown, HIVES, 01/03/18) acetaminophen (Verified Adverse Reaction, Severe, "UPSETS HIS STOMACH", 09/10) ALLERGIC TO CODEINE NOT THE ACETAMINOPHEN codeine (Verified Adverse Reaction, Severe, "UPSETS HIS STOMACH", 01/03/18) ALLERGIC TO CODEINE NOT THE ACETAMINOPHEN *MDRO Multi-Drug Resistant Organism (Verified Adverse Reaction, Unknown, ) 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 Reported Meds & Prescriptions Reported Meds & Active Scripts Active Morphine IR (Morphine Sulfate) 15 Mg Tab 30 Mg PO Q6H PRN 5 Days Morphine ER (Morphine Sulfate) 30 Mg Tab 30 Mg PO Q12HR 5 Days Metformin (Metformin HCl) 500 Mg Tab 1,000 Mg PO BIDPC 60 Days With meals Hydrochlorothiazide 25 Mg Tab 25 Mg PO DAILY 60 Days Lisinopril 20 Mg Tab 20 Mg PO DAILY 60 Days Levemir Inj (Insulin Detemir) 1,000 unit/ 10 ML Vial 35 Units SQ BID 60 Days Do not mix with any other Insulin. Poly-Iron 150 (Polysaccharide Iron Complex) 150 Mg Iron Cap 150 Mg PO Q12HR 60 Days Clindamycin (Clindamycin HCl) 300 Mg Cap 300 Mg PO Q6H 14 Days Walker/Extended Frame (Device) 1 Mis Mis Ea .XX DIRECTED Bariatric walker Narrative Medication List of his home medications reviewed from the nursing note. Review of Systems Except as stated in HPI: all other systems reviewed are Neg Musculoskeletal: Positive: Pain Physical Exam Narrative GENERAL: Awake, alert, moderate distress SKIN: Focused skin assessment warm/dry. Scabs with a nonhealing wound ulcer on the left lower one third of the lower leg anteriorly. There is a significant surrounding redness and tenderness and some swelling. HEAD: Atraumatic. Normocephalic. EYES: Pupils equal and round. No scleral icterus. No injection or drainage. ENT: No nasal bleeding or discharge. Mucous membranes pink and moist. NECK: Trachea midline. No JVD. CARDIOVASCULAR: Regular rate and rhythm. No murmur appreciated. RESPIRATORY: No accessory muscle use. Clear to auscultation. Breath sounds equal bilaterally. GASTROINTESTINAL: Abdomen soft, non-tender, nondistended. Hepatic and splenic margins not palpable. MUSCULOSKELETAL: No obvious deformities. No clubbing. No cyanosis. No edema. NEUROLOGICAL: Awake and alert. No obvious cranial nerve deficits. Motor grossly within normal limits. Normal speech. PSYCHIATRIC: Appropriate mood and affect; insight and judgment normal. Data Data Last Documented VS Vital Signs Date Time Temp Pulse Resp B/P (MAP) Pulse Ox O2 Delivery O2 Flow Rate FiO2 01/04/18 00:01 65 16 140/78 (98) 97 Room Air 01/03/18 20:09 98.4 Orders Orders Basic Metabolic Panel (Bmp) (01/03/18 20:50) Complete Blood Count With Diff (01/03/18 20:50) Blood Culture (01/03/18 20:50) Wound Culture And Gram Stain (01/03/18 20:50) Ketorolac Inj (Toradol Inj) (01/03/18 21:00) Vancomycin Inj (Vancomycin Inj) (01/03/18 21:00) C-Reactive Protein (Crp) (01/03/18 20:50) Westergren Sedimentation Rate (01/03/18 20:50) Ct Tib/Fib W Iv Contrast (01/03/18 ) Iohexol 350 Inj (Omnipaque 350 Inj) (01/03/18 23:04) Place In Observation (01/04/18 ) Vital Signs (Adult) Q4H (01/04/18 00:07) Activity Oob With Assistance (01/04/18 00:07) Sodium Chlor 0.9% 1000 Ml Inj (Ns 1000 M (01/04/18 00:07) Sodium Chloride 0.9% Flush (Ns Flush) (01/04/18 00:15) Sodium Chloride 0.9% Flush (Ns Flush) (01/04/18 09:00) Acetaminophen (Tylenol) (01/04/18 00:15) Ondansetron Inj (Zofran Inj) (01/04/18 00:15) Naloxone Inj (Narcan Inj) (01/04/18 00:15) Docusate Sodium-Senna (Alison-Colace) (01/04/18 09:00) Magnesium Hydroxide Liq (Milk Of Magnesi (01/04/18 00:15) Sennosides (Senokot) (01/04/18 00:15) Bisacodyl Supp (Dulcolax Supp) (01/04/18 00:15) Lactulose Liq (Lactulose Liq) (01/04/18 00:15) Vancomycin Consult Pharmacy (Vancomycin (01/04/18 00:15) Vancomycin Inj (Vancomycin Inj) (01/04/18 09:00) Piperacil-Tazo 3.375 Gm Premix (Zosyn 3. (01/04/18 01:00) Bedside Glucose GUERO.CSUGAR (01/04/18 00:07) Blood Glucose Goal (Criteria) (01/04/18 00:07) Hypoglycemia 70 Mg/Dl Or < (01/04/18 00:07) Notify Dr: Other (01/04/18 00:07) Dextrose 50% In Jose Alberto (Vial) Inj (D50w (Vi (01/04/18 00:15) Glucagon Inj (Glucagon Inj) (01/04/18 00:15) Insulin Aspart Supplemtl Scale (Novolog (01/04/18 08:00) Admit Order (Ed Use Only) (01/04/18 ) Vital Signs (Adult) Q4H (01/04/18 00:09) Diet 1999 Ada Cons Carb (01/04/18 Breakfast) Activity Bed Rest (01/04/18 00:09) Notify Dr: Other (01/04/18 00:09) Labs Laboratory Tests Test 01/03/18 21:27 White Blood Count 5.6 TH/MM3 Red Blood Count 4.88 MIL/MM3 Hemoglobin 12.4 GM/DL Hematocrit 37.8 % Mean Corpuscular Volume 77.6 FL Mean Corpuscular Hemoglobin 25.4 PG Mean Corpuscular Hemoglobin Concent 32.8 % Red Cell Distribution Width 13.9 % Platelet Count 256 TH/MM3 Mean Platelet Volume 8.0 FL Neutrophils (%) (Auto) 43.8 % Lymphocytes (%) (Auto) 43.1 % Monocytes (%) (Auto) 8.6 % Eosinophils (%) (Auto) 3.8 % Basophils (%) (Auto) 0.7 % Neutrophils # (Auto) 2.5 TH/MM3 Lymphocytes # (Auto) 2.4 TH/MM3 Monocytes # (Auto) 0.5 TH/MM3 Eosinophils # (Auto) 0.2 TH/MM3 Basophils # (Auto) 0.0 TH/MM3 CBC Comment DIFF FINAL Differential Comment Erythrocyte Sedimentation Rate 114 mm/hr Blood Urea Nitrogen 11 MG/DL Creatinine 0.82 MG/DL Random Glucose 171 MG/DL Calcium Level 8.7 MG/DL Sodium Level 138 MEQ/L Potassium Level 3.4 MEQ/L Chloride Level 102 MEQ/L Carbon Dioxide Level 30.4 MEQ/L Anion Gap 6 MEQ/L Estimat Glomerular Filtration Rate 102 ML/MIN C-Reactive Protein 1.13 MG/DL MDM Medical Decision Making Medical Screen Exam Complete: Yes Emergency Medical Condition: Yes Medical Record Reviewed: Yes Differential Diagnosis Cellulitis, abscess, osteomyelitis, outpatient treatment failure Narrative Course 10:58 PM patient was given IV vancomycin. Blood test results are back and sed rate and CRP significantly elevated. I have ordered for a CT scan which is pending currently. Patient will require admission for outpatient treatment failure. Case will be signed over to the oncoming ER physician Procedures Procedure Narrative EJ IV: Patient was a difficult stick to get peripheral IV. I was asked to put an EJ line. I explained the procedure to the patient and put him in a Trendelenburg position. The right EJ had a good fill. ChloraPrep was used to cleanse the area. A long 20-gauge angiocatheter was used and access was obtained at the first attempt. Labs were drawn and the nurse secured the line. Patient tolerated the procedure well. EKG Prior to Arrival: Keyla Gonzalez MD Jan 03, 2018 20:44
[2018-01-03] MEDS ORDERED: VANCOMYCIN INJ 1,000 MG in SODIUM CHLOR 0.9% 250 ML INJ 250 ML IV ONE (21:00)
[2018-01-03] MEDS ORDERED: KETOROLAC TROMETHAMINE 30 MG/ML (IVP) VIAL IVP ONE (21:00)
[2018-01-03 22:06] LABS: AUTOMATED NEUTROPHIL # 2.5 TH/MM3 (1.8-7.7); BASOPHIL % 0.7 % (0.0-2.0); EOSINOPHIL # 0.2 TH/MM3 (0-0.4); EOSINOPHIL % 3.8 % (0.0-4.0); HEMATOCRIT 37.8 % (39.0-51.0); HEMOGLOBIN 12.4 GM/DL (13.0-17.0); LYMPH % 43.1 % (9.0-44.0); LYMPHOCYTE # 2.4 TH/MM3 (1.0-4.8); MEAN CELL VOLUME 77.6 FL (80.0-100.0); MEAN CORPUSCULAR HEMOGLOBIN 25.4 PG (27.0-34.0); MEAN CORPUSCULAR HGB CONC 32.8 % (32.0-36.0); MONO % 8.6 % (0.0-8.0); MONOCYTE # 0.5 TH/MM3 (0-0.9); NEUT % 43.8 % (16.0-70.0); PLATELET COUNT 256 TH/MM3 (150-450); RED BLOOD COUNT 4.88 MIL/MM3 (4.50-5.90); RED CELL DISTRIBUTION WIDTH 13.9 % (11.6-17.2); WHITE BLOOD COUNT 5.6 TH/MM3 (4.0-11.0)
[2018-01-03 22:10] LABS: CALCIUM 8.7 MG/DL (8.5-10.1)
[2018-01-03 22:11] LABS: BICARBONATE 30.4 MEQ/L (21.0-32.0)
[2018-01-03 22:14] LABS: C-REACTIVE PROTEIN 1.13 MG/DL (0.00-0.30); CREATININE 0.82 MG/DL (0.60-1.30)
[2018-01-03] MEDS ORDERED: IOHEXOL 350 MG/ML 10 ML VIAL (for RAD DIAG) IVCONTRAST ONE (23:04)
--- NOTE | 2018-01-03 23:16 | RADRPT ---
EXAM DATE/TIME: 01/03/2018 22:45 [place] COMPARISON: No previous studies available for comparison. INDICATIONS : Osteomyelitis. IV CONTRAST: 100 cc Omnipaque 350 (iohexol) IV RADIATION DOSE: 12.39 CTDIvol (mGy) MEDICAL HISTORY : Hypertension. Carcinoma, bladder. SURGICAL HISTORY : Appendectomy. ENCOUNTER: Initial ACUITY: 1 month PAIN SCALE: 10/10 LOCATION: Right lower leg. TECHNIQUE: Volumetric scanning of the tibia and fibula was performed. Using automated exposure control and adju stment of the mA and/or kV according to patient size, radiation dose was kept as low as reasonably ac hievable to obtain optimal diagnostic quality images. DICOM format image data is available [facility] for review and comparison. FINDINGS: BONES: Plate and screw fixation hardware involving the distal fibula. Posttraumatic fragmentation at the ank le joint which appears old. No evidence of acute fracture. No evidence of bony destruction or periost eal elevation. JOINTS: No evidence of effusion at the knee or ankle. SOFT TISSUES: Skin thickening involving portions of the palafox both proximally and distally with patchy subcutaneous tissue cellulitic change. No evidence of drainable deep abscess. CONCLUSION: No evidence of osteomyelitis. Blayne Núñez MD on January 03, 2018 at 23:09 Board Certified Radiologist. This report was verified electronically.
--- NOTE | 2018-01-03 23:18 | PD ---
Physical Exam Date Seen by Provider: Jan 03, 2018 Time Seen by Provider: 23:17 Narrative accepted in transfer of care from Dr Corbin Data Data Last Documented VS Vital Signs Date Time Temp Pulse Resp B/P (MAP) Pulse Ox O2 Delivery O2 Flow Rate FiO2 01/04/18 00:01 65 16 140/78 (98) 97 Room Air 01/03/18 20:09 98.4 Orders Orders Basic Metabolic Panel (Bmp) (01/03/18 20:50) Complete Blood Count With Diff (01/03/18 20:50) Blood Culture (01/03/18 20:50) Wound Culture And Gram Stain (01/03/18 20:50) Ketorolac Inj (Toradol Inj) (01/03/18 21:00) Vancomycin Inj (Vancomycin Inj) (01/03/18 21:00) C-Reactive Protein (Crp) (01/03/18 20:50) Westergren Sedimentation Rate (01/03/18 20:50) Ct Tib/Fib W Iv Contrast (01/03/18 ) Iohexol 350 Inj (Omnipaque 350 Inj) (01/03/18 23:04) Place In Observation (01/04/18 ) Vital Signs (Adult) Q4H (01/04/18 00:07) Activity Oob With Assistance (01/04/18 00:07) Sodium Chlor 0.9% 1000 Ml Inj (Ns 1000 M (01/04/18 00:07) Sodium Chloride 0.9% Flush (Ns Flush) (01/04/18 00:15) Sodium Chloride 0.9% Flush (Ns Flush) (01/04/18 09:00) Acetaminophen (Tylenol) (01/04/18 00:15) Ondansetron Inj (Zofran Inj) (01/04/18 00:15) Basic Metabolic Panel (Bmp) (01/05/18 06:00) Complete Blood Count With Diff (01/05/18 06:00) Naloxone Inj (Narcan Inj) (01/04/18 00:15) Docusate Sodium-Senna (Alison-Colace) (01/04/18 09:00) Magnesium Hydroxide Liq (Milk Of Magnesi (01/04/18 00:15) Sennosides (Senokot) (01/04/18 00:15) Bisacodyl Supp (Dulcolax Supp) (01/04/18 00:15) Lactulose Liq (Lactulose Liq) (01/04/18 00:15) Vancomycin Consult Pharmacy (Vancomycin (01/04/18 00:15) Vancomycin Inj (Vancomycin Inj) (01/04/18 09:00) Piperacil-Tazo 3.375 Gm Premix (Zosyn 3. (01/04/18 00:15) Bedside Glucose GUERO.CSUGAR (01/04/18 00:07) Blood Glucose Goal (Criteria) (01/04/18 00:07) Hypoglycemia 70 Mg/Dl Or < (01/04/18 00:07) Notify Dr: Other (01/04/18 00:07) Dextrose 50% In Jose Alberto (Vial) Inj (D50w (Vi (01/04/18 00:15) Glucagon Inj (Glucagon Inj) (01/04/18 00:15) Insulin Aspart Supplemtl Scale (Novolog (01/04/18 08:00) Admit Order (Ed Use Only) (01/04/18 ) Vital Signs (Adult) Q4H (01/04/18 00:09) Diet 1999 Ada Cons Carb (01/04/18 Breakfast) Activity Bed Rest (01/04/18 00:09) Notify Dr: Other (01/04/18 00:09) Labs Laboratory Tests Test 01/03/18 21:27 White Blood Count 5.6 TH/MM3 Red Blood Count 4.88 MIL/MM3 Hemoglobin 12.4 GM/DL Hematocrit 37.8 % Mean Corpuscular Volume 77.6 FL Mean Corpuscular Hemoglobin 25.4 PG Mean Corpuscular Hemoglobin Concent 32.8 % Red Cell Distribution Width 13.9 % Platelet Count 256 TH/MM3 Mean Platelet Volume 8.0 FL Neutrophils (%) (Auto) 43.8 % Lymphocytes (%) (Auto) 43.1 % Monocytes (%) (Auto) 8.6 % Eosinophils (%) (Auto) 3.8 % Basophils (%) (Auto) 0.7 % Neutrophils # (Auto) 2.5 TH/MM3 Lymphocytes # (Auto) 2.4 TH/MM3 Monocytes # (Auto) 0.5 TH/MM3 Eosinophils # (Auto) 0.2 TH/MM3 Basophils # (Auto) 0.0 TH/MM3 CBC Comment DIFF FINAL Differential Comment Erythrocyte Sedimentation Rate 114 mm/hr Blood Urea Nitrogen 11 MG/DL Creatinine 0.82 MG/DL Random Glucose 171 MG/DL Calcium Level 8.7 MG/DL Sodium Level 138 MEQ/L Potassium Level 3.4 MEQ/L Chloride Level 102 MEQ/L Carbon Dioxide Level 30.4 MEQ/L Anion Gap 6 MEQ/L Estimat Glomerular Filtration Rate 102 ML/MIN C-Reactive Protein 1.13 MG/DL [facility] Medical Record Reviewed: Yes Supervised Visit with KENNEY: No Interpretation(s) esr: 114, elevated c-rp: 1.13, elevated Last Impressions Lower Extremity CT 01/03/18 0000 Signed Impressions: Service Date/Time: December 22:45 - CONCLUSION: No evidence of osteomyelitis. Blayne Núeñz MD CT RLE: FINDINGS: BONES: Plate and screw fixation hardware involving the distal fibula. Posttraumatic fragmentation at the ankle joint which appears old. No evidence of acute fracture. No evidence of bony destruction or periosteal elevation. JOINTS: No evidence of effusion at the knee or ankle. SOFT TISSUES: Skin thickening involving portions of the palafox both proximally and distally with patchy subcutaneous tissue cellulitic change. No evidence of drainable deep abscess. CONCLUSION: No evidence of osteomyelitis. Blayne Núñez MD on January 03, 2018 at 23:09 Board Certified Radiologist. This report was verified electronically. CBC & BMP Diagram 01/03/18 21:27 Calcium Level 8.7 Vital Signs Date Time Temp Pulse Resp B/P (MAP) Pulse Ox O2 Delivery O2 Flow Rate FiO2 01/04/18 00:01 65 16 140/78 (98) 97 Room Air 01/03/18 23:12 16 01/03/18 20:09 98.4 80 18 150/80 (103) 97 Differential Diagnosis accepted in transfer of care from Dr Corbin; please refer to her dictation Narrative Course accepted in transfer of care from Dr Corbin; follow up CT and admission Physician Communication Physician Communication discussed with Dr Thompson --admit to [facility] Diagnosis Primary Impression: Cellulitis of lower leg Additional Impression: Diabetes mellitus Admitting Information Admitting Physician Requests: Admit Johana Gutierrez MD Jan 03, 2018 23:18
[2018-01-04 00:01] VITALS: BP 140/78; PULSE 65; RESP 16; O2SAT 97
[2018-01-04] MEDS ORDERED: LACTULOSE SYRUP 20 GM/30 ML CUP PO PRN (00:15)
[2018-01-04] MEDS ORDERED: BISACODYL 10 MG SUPP RECTAL PRN (00:15)
[2018-01-04] MEDS ORDERED: MAGNESIUM HYDROXIDE SUSP 30 ML CUP PO PRN (00:15)
[2018-01-04] MEDS ORDERED: Vancomycin Consult Pharmacy 1 EA OTHER SCH (00:15)
[2018-01-04] MEDS ORDERED: ACETAMINOPHEN 325 MG TAB PO PRN (00:15)
[2018-01-04] MEDS ORDERED: DEXTROSE 50% IN WATER 50 ML VIAL(D50) IV PUSH PRN (00:15)
[2018-01-04] MEDS ORDERED: GLUCAGON 1 MG/ML VIAL OTHER PRN (00:15)
[2018-01-04] MEDS ORDERED: SENNOSIDES 8.6 MG TAB PO PRN (00:15)
[2018-01-04] MEDS ORDERED: SODIUM CHLORIDE 0.9% FLUSH 10 ML FLUSH IV FLUSH PRN (00:15)
[2018-01-04] MEDS ORDERED: NALOXONE HCL 0.4 MG/ML AMP IV PUSH PRN (00:15)
[2018-01-04] MEDS ORDERED: ONDANSETRON HCL 4 MG/2 ML VIAL IVP PRN (00:15)
[2018-01-04] MEDS: SODIUM CHLOR 0.9% 1000 ML INJ 1,000 ML IV SCH ×2 (00:25→10:07)
[2018-01-04] MEDS ORDERED: PIPERACIL-TAZO 3.375 GM PREMIX 50 ML IV SCH (01:00)
[2018-01-04] MEDS: MORPHINE SULFATE 4 MG/ML INJ IV PUSH PRN ×6 (01:30→16:05)
[2018-01-04] MEDS ORDERED: CLINDAMYCIN 900 MG/NS PREMIX 50 ML IV SCH (02:00)
[2018-01-04] MEDS ORDERED: MISCELLANEOUS PHARMACY INFORMATION XX PRN (02:00)
[2018-01-04] MEDS ORDERED: ASP: Documented allergy to Penicillins or Cephalosporins PRN (02:00)
[2018-01-04] MEDS: MEROPENEM INJ 1,000 MG in SODIUM CHLORIDE 0.9% INJ 100 ML IV SCH ×3 (02:45→17:32)
[2018-01-04 03:53] VITALS: BP 124/81; PULSE 67; RESP 18; O2SAT 99
[2018-01-04] MEDS: VANCOMYCIN INJ 1,750 MG in SODIUM CHLORID 0.9% 500 ML INJ 500 ML IV SCH ×2 (04:25→13:50)
[2018-01-04 04:42] VITALS: TEMP 97.9
[2018-01-04 08:00] VITALS: BP 143/81; PULSE 60; RESP 18; TEMP 97.9; O2SAT 96
[2018-01-04] MEDS: INSULIN ASPART SUPPLEMENTAL SCALE SQ SCH ×3 (08:00→17:32)
[2018-01-04] MEDS ORDERED: SODIUM CHLORIDE 0.9% FLUSH 10 ML FLUSH IV FLUSH SCH (09:00)
[2018-01-04] MEDS ORDERED: INSULIN DETEMIR 100 UNITS/ML VIAL SQ SCH (09:00)
[2018-01-04] MEDS ORDERED: DOCUSATE SODIUM 50 MG/SENNA 8.6 MG TAB PO SCH (09:00)
[2018-01-04] MEDS ORDERED: VANCOMYCIN INJ 1,000 MG in SODIUM CHLOR 0.9% 250 ML INJ 250 ML IV SCH (09:00)
[2018-01-04] MEDS ORDERED: HYDROCHLOROTHIAZIDE 25 MG TAB PO SCH (09:00)
[2018-01-04] MEDS ORDERED: LISINOPRIL 20 MG TAB PO SCH (09:00)
--- NOTE | 2018-01-04 09:01 | HHI.HP ---
[facility] Primary Care Physician No Primary Care Physician Admission Diagnosis RLE cellulitis failed outpatient therapy; DM Diagnoses: (1) Cellulitis of lower leg Diagnosis: Principal Chief Complaint: right leg infection Travel History International Travel<30 Days: No Contact w/Intl Traveler <30 Da: No Traveled to Known Affected Are: No History of Present Illness patient is a 47 y/o male with history of hypertension, diabetes, bladder cancer , who presented to ER with right leg cellulitis. he was admitted to the hospital for the same reason last month, underwent I/D of the right leg and was discharged with oral Clindamycin per ID recommendations- which he's been taking since then. he says that the infection of the right lower leg seems to be getting worse with worsening redness, pain and swelling. he had low grade fevers earlier this week. he says that he was told to come to the hospital by his visiting nurse. Review of Systems Constitutional: COMPLAINS OF: Fever, DENIES: Weight loss, Chills, Night Sweats Eyes: DENIES: Blurred vision, Diplopia, Vision loss, Double Vision Ears, nose, mouth, throat: DENIES: Tinnitus, Vertigo, Throat pain, Epistaxis Respiratory: DENIES: Apneas, Cough, Snoring, Wheezing, Hemoptysis, Sputum production, Shortness of breath Cardiovascular: COMPLAINS OF: Lower Extremity Edema, DENIES: Chest pain, Palpitations, Syncope, Dyspnea on Exertion, PND, Orthopnea, Claudication Gastrointestinal: DENIES: Abdominal pain, Black stools, Bloody stools, Constipation, Diarrhea, Nausea, Vomiting, Difficulty Swallowing, Anorexia Genitourinary: DENIES: Urinary frequency, Urgency, Hematuria, Dysuria Musculoskeletal: COMPLAINS OF: Joint pain, Muscle aches, DENIES: Stiffness, Joint Swelling Integumentary: DENIES: Rash Neurologic: DENIES: Abnormal gait, Headache, Localized weakness, Paresthesias, Seizures, Speech Problems, Tremor, Poor Balance Psychiatric: DENIES: Anxiety, Confusion, Mood changes, Depression, Hallucinations, Agitation, Suicidal Ideation, Homicidal Ideation, Delusions Past Family Social History Past Medical History hypertension/ diabetes mellitus/ bladder cancer. Past Surgical History appendectomy/ bladder surgery. Reported Medications Morphine IR (Morphine Sulfate) 15 Mg Tab 30 Mg PO Q6H PRN 5 Days Morphine ER (Morphine Sulfate) 30 Mg Tab 30 Mg PO Q12HR 5 Days Metformin (Metformin HCl) 500 Mg Tab 1,000 Mg PO BIDPC 60 Days With meals Hydrochlorothiazide 25 Mg Tab 25 Mg PO DAILY 60 Days Lisinopril 20 Mg Tab 20 Mg PO DAILY 60 Days Levemir Inj (Insulin Detemir) 1,000 unit/ 10 ML Vial 35 Units SQ BID 60 Days Do not mix with any other Insulin. Poly-Iron 150 (Polysaccharide Iron Complex) 150 Mg Iron Cap 150 Mg PO Q12HR 60 Days Clindamycin (Clindamycin HCl) 300 Mg Cap 300 Mg PO Q6H 14 Days Walker/Extended Frame (Device) 1 Mis Mis Ea .XX DIRECTED Bariatric walker Allergies: Coded Allergies: carbamazepine (Verified Allergy, Severe, HIVES, 01/03/18) cephalexin (Verified Allergy, Severe, Rash, 01/03/18) erythromycin base (Verified Allergy, Severe, RASH, 01/03/18) penicillin G (Verified Allergy, Severe, RASH, 01/03/18) phenytoin (Verified Allergy, Severe, RASH, 01/03/18) hydrocodone (Verified Allergy, Unknown, HIVES, 01/03/18) acetaminophen (Verified Adverse Reaction, Severe, "UPSETS HIS STOMACH", 09/10) ALLERGIC TO CODEINE NOT THE ACETAMINOPHEN codeine (Verified Adverse Reaction, Severe, "UPSETS HIS STOMACH", 01/03/18) ALLERGIC TO CODEINE NOT THE ACETAMINOPHEN *MDRO Multi-Drug Resistant Organism (Verified Adverse Reaction, Unknown, ) 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 Ordered Medications Inpatient Medications Acetaminophen (Tylenol) 650 mg Q4H PRN PO TEMP > 100.4; Start 01/04/18 at 00:15 Bisacodyl (Dulcolax Supp) 10 mg DAILY PRN RECTAL SEVERE CONSITIPATION; Start at 00:15 Clindamycin/ Sodium Chloride 50 ml @ 100 mls/hr Q6H IV ; Start 01/04/18 at 02: 00; Stop 01/04/18 at 02:00; Status DC Dextrose (D50w (Vial) Inj) 50 ml UNSCH PRN IV PUSH HYPOGLYCEMIA-SEE COMMENTS; Start 01/04/18 at 00:15 Glucagon (Glucagon Inj) 1 mg UNSCH PRN OTHER HYPOGLYCEMIA-SEE COMMENTS; Start 01/04/18 at 00:15 Insulin Aspart (NovoLOG SUPPLEMENTAL SCALE) 1 ACHS SLIDING SCALE SQ ; Start at 08:00 Ketorolac Tromethamine (Toradol Inj) 30 mg ONCE ONCE IVP Last administered on 01/03/18at 21:36; Start 01/03/18 at 21:00; Stop 01/03/18 at 21:01; Status DC Lactulose (Lactulose Liq) 30 ml DAILY PRN PO SEVERE CONSITIPATION; Start at 00:15 Magnesium Hydroxide (Milk Of Magnesia Liq) 30 ml Q12H PRN PO Mild constipation ; Start 01/04/18 at 00:15 Meropenem 1000 mg/ Sodium Chloride 100 ml @ 200 mls/hr Q8H IV Last administered on 01/04/18at 02:45; Start 01/04/18 at 02:00 Miscellaneous Information SPECIFIC LAB TO BE DRAWN:VANCOMYCIN TROUGH DATE TO... ONCE ONCE .XX ; Start 01/05/18 at 04:45; Stop 01/05/18 at 04:46 Miscellaneous Medication (ASP Crit: Doc allergy to Penicillin/ Cephalosp) 1 UNSCH X1 PRN .XX PHARMACY DOCUMENTATION; Start 01/04/18 at 02:00; Stop at 01:59 Miscellaneous Medication ([facility]) 1 UNSCH X1 PRN XX PHARMACY DOCUMENTATION; Start 01/04/18 at 02:00; Stop 01/05/18 at 01:59 Morphine Sulfate (Morphine Inj) 4 mg Q3H PRN IV PUSH pain 6-10 Last administered on 01/04/18at 07:42; Start 01/04/18 at 01:15 Naloxone HCl (Narcan Inj) 0.4 mg UNSCH PRN IV PUSH SEE LABEL COMMENTS; Start at 00:15 Ondansetron HCl (Zofran Inj) 4 mg Q6H PRN IVP NAUSEA OR VOMITING; Start at 00:15 Pharmacy Profile Note 0 ml @ 0 mls/hr UNSCH OTHER ; Start 01/04/18 at 00:15 Piperacillin Sod/ Tazobactam Sod 50 ml @ 100 mls/hr Q6H IV ; Start 01/04/18 at 01:00; Stop 01/04/18 at 01:45; Status DC Senna/Docusate Sodium (Alison-Colace) 1 tab BID PO ; Start 01/04/18 at 09:00 Sennosides (Senokot) 17.2 mg Q12H PRN PO Moderate constipation; Start 01/04/18 at 00:15 Sodium Chloride (NS Flush) 2 ml BID IV FLUSH ; Start 01/04/18 at 09:00 Vancomycin HCl 1000 mg/Sodium Chloride 250 ml @ 250 mls/hr Q12H IV ; Start at 09:00; Stop 01/04/18 at 09:00; Status DC Vancomycin HCl 1750 mg/Sodium Chloride 517.5 ml @ 250 mls/hr Q8H IV Last administered on 01/04/18at 04:25; Start 01/04/18 at 05:00 Family History not relevant to this admission. Social History quit smoking - doesn't drink. Physical Exam Vital Signs Vital Signs Date Time Temp Pulse Resp B/P (MAP) Pulse Ox O2 Delivery O2 Flow Rate FiO2 01/04/18 04:42 97.9 01/04/18 03:53 67 18 124/81 (95) 99 01/04/18 01:47 16 01/04/18 00:01 65 16 140/78 (98) 97 Room Air 01/03/18 23:12 16 01/03/18 20:09 98.4 80 18 150/80 (103) 97 Physical Exam GENERAL: This is a well-nourished, well-developed patient, in no apparent distress. SKIN: No rashes, ecchymoses or lesions. Cool and dry. HEAD: Atraumatic. Normocephalic. No temporal or scalp tenderness. EYES: Pupils equal round and reactive. Extraocular motions intact. No scleral icterus. No injection or drainage. ENT: Nose without bleeding, purulent drainage or septal hematoma. Throat without erythema, tonsillar hypertrophy or exudate. Uvula midline. Airway patent. NECK: Trachea midline. No JVD or lymphadenopathy. Supple, nontender, no meningeal signs. CARDIOVASCULAR: Regular rate and rhythm without murmurs, gallops, or rubs. RESPIRATORY: Clear to auscultation. Breath sounds equal bilaterally. No wheezes , rales, or rhonchi. GASTROINTESTINAL: Abdomen soft, non-tender, nondistended. No hepato-splenomegaly , or palpable masses. No guarding. MUSCULOSKELETAL: erythema, swelling, warmth and tenderness over the right leg. NEUROLOGICAL: Awake and alert. Cranial nerves II through XII intact. Motor and sensory grossly within normal limits. Five out of 5 muscle strength in all muscle groups. Normal speech. Laboratory Laboratory Tests Test 01/03/18 21:27 White Blood Count 5.6 Red Blood Count 4.88 Hemoglobin 12.4 Hematocrit 37.8 Mean Corpuscular Volume 77.6 Mean Corpuscular Hemoglobin 25.4 Mean Corpuscular Hemoglobin Concent 32.8 Red Cell Distribution Width 13.9 Platelet Count 256 Mean Platelet Volume 8.0 Neutrophils (%) (Auto) 43.8 Lymphocytes (%) (Auto) 43.1 Monocytes (%) (Auto) 8.6 Eosinophils (%) (Auto) 3.8 Basophils (%) (Auto) 0.7 Neutrophils # (Auto) 2.5 Lymphocytes # (Auto) 2.4 Monocytes # (Auto) 0.5 Eosinophils # (Auto) 0.2 Basophils # (Auto) 0.0 CBC Comment DIFF FINAL Differential Comment Erythrocyte Sedimentation Rate 114 Blood Urea Nitrogen 11 Creatinine 0.82 Random Glucose 171 Calcium Level 8.7 Sodium Level 138 Potassium Level 3.4 Chloride Level 102 Carbon Dioxide Level 30.4 Anion Gap 6 Estimat Glomerular Filtration Rate 102 C-Reactive Protein 1.13 Date/Time Source Procedure Growth Status 01/03/18 21:27 Blood Peripheral Aerobic Blood Culture Pending Received 01/03/18 21:27 Blood Peripheral Anaerobic Blood Culture Pending Received 01/03/18 21:00 Wound Leg Gram Stain Pending Received 01/03/18 21:00 Wound Leg Wound Culture Pending Received Result Diagram: 01/03/18212601/03/182126 Imaging Last Impressions Lower Extremity CT 01/03/18 0000 Signed Impressions: Service Date/Time: December 22:45 - CONCLUSION: No evidence of osteomyelitis. MD Nbaeel Huffman VTE Risk Assessment Caprini VTE Risk Assessment: Mod/High Risk (score >= 2) Caprini Risk Assessment Model Point Value = 1 Point Value = 2 Point Value = 3 Point Value = 5 Age 41-60 Minor surgery BMI > 25 kg/m2 Swollen legs Varicose veins or History of unexplained or recurrent spontaneous Oral contraceptives or hormone replacement Sepsis (< 1 month) Serious lung disease, including pneumonia (< 1 month) Abnormal pulmonary function Acute myocardial infarction Congestive heart failure (< 1 month) History of inflammatory bowel disease Medical patient at bed rest Age 61-74 Arthroscopic surgery Major open surgery (> 45 min) Laparoscopic surgery (> 45 min) Malignancy Confined to bed (> 72 hours) Immobilizing plaster cast Central venous access Age >= 75 History of VTE Family history of VTE Factor V Leiden Prothrombin [id number] Lupus anticoagulant Anticardiolipin antibodies Elevated serum homocysteine Heparin-induced thrombocytopenia Other congenital or acquired thrombophilia Stroke (< 1 month) Elective arthroplasty Hip, pelvis, or leg fracture Acute spinal cord injury (< 1 month) Prophylaxis Regimen Total Risk Factor Score Risk Level Prophylaxis Regimen 0-1 Low Early ambulation 2 Moderate Order ONE of the following: *Sequential Compression Device (SCD) *Heparin 5000 units SQ BID 3-4 Higher Order ONE of the following medications: *Heparin 5000 units SQ TID *Enoxaparin/Lovenox 40 mg SQ daily (WT < 150 kg, CrCl > 30 mL/min) *Enoxaparin/Lovenox 30 mg SQ daily (WT < 150 kg, CrCl > 10-29 mL/min) *Enoxaparin/Lovenox 30 mg SQ BID (WT < 150 kg, CrCl > 30 mL/min) AND/OR *Sequential Compression Device (SCD) 5 or more Highest Order ONE of the following medications: *Heparin 5000 units SQ TID (Preferred with Epidurals) *Enoxaparin/Lovenox 40 mg SQ daily (WT < 150 kg, CrCl > 30 mL/min) *Enoxaparin/Lovenox 30 mg SQ daily (WT < 150 kg, CrCl > 10-29 mL/min) *Enoxaparin/Lovenox 30 mg SQ BID (WT < 150 kg, CrCl > 30 mL/min) AND *Sequential Compression Device (SCD) Assessment and Plan Assessment and Plan A/P - right leg cellulitis- patient had I/D of the right leg last month and has been treated with oral Clindamycin continue with broad spectrum IV antibiotics and pain control- ID consulted- will consult general surgery. -diabetes mellitus; resume Levemir- accu-check with SSI -hypertension- resume home meds -bladder cancer- f/u as outpatient -DVT prophylaxis; will start on subq Lovenox- after surgery evaluation. Discussed Condition With the patient and . Elo Oneal MD Jan 04, 2018 09:01
--- NOTE | 2018-01-04 11:11 | PD.CONS ---
cc: Kalpesh Narvaez MD [facility] Service General Surgery Consult Requested By Dr. Oneal Reason for Consult Evaluate RIGHT leg cellulitis Primary Care Physician No Primary Care Physician History of Present Illness This is a 47 year old male known to the General Surgery service that has an incision and drainage of a RIGHT leg abscess on December 12 of this year. Wound Vac therapy was initiated during the last hospitalization but he was transitioned to wet to dry dressings prior to discharge. The patient now comes in with complaints of another RIGHT leg area with a concern for an abscess. He reports it is difficult for him to bear weight on this leg. He reports no new trauma to the leg. He has a normal WBC. A CT of the leg was completed which shows no fluid collection. A General Surgery consultation has been requested. Review of Systems Constitutional: COMPLAINS OF: Fever, Chills, DENIES: Fatigue, Change in appetite Endocrine: DENIES: Polydipsia, Polyuria, Polyphagia Eyes: DENIES: Diplopia, Eye inflammation Ears, nose, mouth, throat: DENIES: Hearing loss Respiratory: DENIES: Cough Cardiovascular: DENIES: Chest pain Gastrointestinal: DENIES: Abdominal pain, Nausea, Vomiting Genitourinary: DENIES: Urinary frequency, Hematuria Musculoskeletal: COMPLAINS OF: Stiffness, DENIES: Joint pain Integumentary: COMPLAINS OF: Abnormal pigmentation Hematologic/lymphatic: DENIES: Bruising Immunologic/allergic: DENIES: Eczema Neurologic: DENIES: Headache, Localized weakness Psychiatric: DENIES: Mood changes, Depression, Hallucinations Past Family Social History Past Medical History Bladder cancer Type 2 diabetes mellitus Past Surgical History Incision and drainage of RIGHT leg in November 2017 Bladder cancer RIGHT ankle fracture with hardware placed LEFT wrist I&D Reported Medications Lisinopril Hydrochlorothiazide Metformin Levemir Glipizide Allergies: Coded Allergies: carbamazepine (Verified Allergy, Severe, HIVES, 01/03/18) cephalexin (Verified Allergy, Severe, Rash, 01/03/18) erythromycin base (Verified Allergy, Severe, RASH, 01/03/18) penicillin G (Verified Allergy, Severe, RASH, 01/03/18) phenytoin (Verified Allergy, Severe, RASH, 01/03/18) hydrocodone (Verified Allergy, Unknown, HIVES, 01/03/18) acetaminophen (Verified Adverse Reaction, Severe, "UPSETS HIS STOMACH", 09/10) ALLERGIC TO CODEINE NOT THE ACETAMINOPHEN codeine (Verified Adverse Reaction, Severe, "UPSETS HIS STOMACH", 01/03/18) ALLERGIC TO CODEINE NOT THE ACETAMINOPHEN *MDRO Multi-Drug Resistant Organism (Verified Adverse Reaction, Unknown, ) 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 Ordered Medications Current Medications Medications (Trade) Dose Ordered Sig/Shana Route Start Time Stop Time Status Last Admin Sodium Chloride 1,000 ml @ 100 mls/hr Q10H IV 01/04/18 00:07 01/04/18 10:07 (NS Flush) 2 ml UNSCH PRN IV FLUSH 01/04/18 00:15 (NS Flush) 2 ml BID IV FLUSH 01/04/18 09:00 (Tylenol) 650 mg Q4H PRN PO 01/04/18 00:15 (Zofran Inj) 4 mg Q6H PRN IVP 01/04/18 00:15 (Narcan Inj) 0.4 mg UNSCH PRN IV PUSH 01/04/18 00:15 (Alison-Colace) 1 tab BID PO 01/04/18 09:00 (Milk Of Magnesia Liq) 30 ml Q12H PRN PO 01/04/18 00:15 (Senokot) 17.2 mg Q12H PRN PO 01/04/18 00:15 (Dulcolax Supp) 10 mg DAILY PRN RECTAL 01/04/18 00:15 (Lactulose Liq) 30 ml DAILY PRN PO 01/04/18 00:15 Pharmacy Profile Note 0 ml @ 0 mls/hr UNSCH OTHER 01/04/18 00:15 (D50w (Vial) Inj) 50 ml UNSCH PRN IV PUSH 01/04/18 00:15 (Glucagon Inj) 1 mg UNSCH PRN OTHER 01/04/18 00:15 (NovoLOG SUPPLEMENTAL SCALE) 1 ACHS SLIDING SCALE SQ 01/04/18 08:00 01/04/18 08:00 Vancomycin HCl 1750 mg/Sodium Chloride 517.5 ml @ 250 mls/hr Q8H IV 01/04/18 05:00 01/04/18 04:25 Miscellaneous Information SPECIFIC LAB TO BE DRAWN:VANCOMYCIN TROUGH DATE TO... ONCE ONCE .XX 01/05/18 04:45 01/05/18 04:46 (Morphine Inj) 4 mg Q3H PRN IV PUSH 01/04/18 01:15 01/04/18 10:27 (ASP Crit: Doc allergy to Penicillin/ Cephalosp) 1 UNSCH X1 PRN .XX 01/04/18 02:00 01/05/18 01:59 ([facility] Pharmacy Information) 1 UNSCH X1 PRN XX 01/04/18 02:00 01/05/18 01:59 Meropenem 1000 mg/ Sodium Chloride 100 ml @ 200 mls/hr Q8H IV 01/04/18 02:00 01/04/18 02:45 (Hydrodiuril) 25 mg DAILY PO 01/04/18 09:00 01/04/18 09:00 (Levemir Inj) 35 units BID SQ 01/04/18 09:00 01/04/18 09:00 (Prinivil) 20 mg DAILY PO 01/04/18 09:00 01/04/18 09:00 Family History Non contributory Social History Denies tobacco use Denies ETOH use Denies current IVDA; has injected medications in the past Physical Exam Vital Signs Vital Signs Date Time Temp Pulse Resp B/P (MAP) Pulse Ox O2 Delivery O2 Flow Rate FiO2 01/04/18 09:34 01/04/18 08:00 97.9 60 18 143/81 (101) 96 01/04/18 04:42 97.9 01/04/18 03:53 67 18 124/81 (95) 99 01/04/18 01:47 16 01/04/18 00:01 65 16 140/78 (98) 97 Room Air 01/03/18 23:12 16 01/03/18 20:09 98.4 80 18 150/80 (103) 97 Physical Exam GENERAL: 47 year old male resting in bed in no acute distress. SKIN: RIGHT anterior ankle: prior site of I&D closing-- minimal drainage; no erythremia. RIGHT leg distal to knee: area of mild redness; not warm to the touch; no palpable fluid collection. LEFT leg: no areas of concern for abscesses or cellulitis. HEAD: Atraumatic. Normocephalic. EYES: Pupils equal and round. No scleral icterus. No injection or drainage. ENT: No nasal bleeding or discharge. Mucous membranes pink and moist. NECK: Trachea midline. CARDIOVASCULAR: Regular rate and rhythm. RESPIRATORY: No accessory muscle use. Clear to auscultation. Breath sounds equal bilaterally. GASTROINTESTINAL: Abdomen soft, non-tender, nondistended. Hepatic and splenic margins not palpable. MUSCULOSKELETAL: Extremities without clubbing, cyanosis, or edema. No obvious deformities. NEUROLOGICAL: Awake and alert. No obvious cranial nerve deficits. Motor grossly within normal limits. Five out of 5 muscle strength in the arms and legs. Normal speech. PSYCHIATRIC: Appropriate mood and affect; insight and judgment normal. Laboratory Laboratory Tests Test 01/03/18 21:27 White Blood Count 5.6 Red Blood Count 4.88 Hemoglobin 12.4 Hematocrit 37.8 Mean Corpuscular Volume 77.6 Mean Corpuscular Hemoglobin 25.4 Mean Corpuscular Hemoglobin Concent 32.8 Red Cell Distribution Width 13.9 Platelet Count 256 Mean Platelet Volume 8.0 Neutrophils (%) (Auto) 43.8 Lymphocytes (%) (Auto) 43.1 Monocytes (%) (Auto) 8.6 Eosinophils (%) (Auto) 3.8 Basophils (%) (Auto) 0.7 Neutrophils # (Auto) 2.5 Lymphocytes # (Auto) 2.4 Monocytes # (Auto) 0.5 Eosinophils # (Auto) 0.2 Basophils # (Auto) 0.0 CBC Comment DIFF FINAL Differential Comment Erythrocyte Sedimentation Rate 114 Blood Urea Nitrogen 11 Creatinine 0.82 Random Glucose 171 Calcium Level 8.7 Sodium Level 138 Potassium Level 3.4 Chloride Level 102 Carbon Dioxide Level 30.4 Anion Gap 6 Estimat Glomerular Filtration Rate 102 C-Reactive Protein 1.13 Date/Time Source Procedure Growth Status 01/03/18 21:27 Blood Peripheral Aerobic Blood Culture Pending Received 01/03/18 21:27 Blood Peripheral Anaerobic Blood Culture Pending Received 01/03/18 21:00 Wound Leg Gram Stain - Final Resulted 01/03/18 21:00 Wound Leg Wound Culture Pending Resulted Result Diagram: 01/03/18212601/03/182126 Imaging Last 48 hours Impressions Lower Extremity CT 01/03/18 0000 Signed Impressions: Service Date/Time: December 22:45 - CONCLUSION: No evidence of osteomyelitis. Blayne Núñez MD Assessment and Plan Assessment and Plan 47 year old male with RIGHT leg cellulitis -No palpable fluid collection on exam or imaging -Diet as tolerated -ID consulted -May benefit from ict educator -No acute surgical needs at this time; We will sign off -Please call with questions PT SEEN AND EVALUATED WITH CHARGE ACCOUNT AUTHORIZER WHO DOCUMENTED OUR VISIT NO SURGICAL INTERVENTION REQUIRED FOR CELLULITIS KALPESH NARVAEZ MD FACS Discussed Condition With Mayela Godoy CHARGE ACCOUNT AUTHORIZER/Glass Driller CHARGE ACCOUNT AUTHORIZER Jan 04, 2018 11:11 Kalpesh Narvaez MD Jan 09, 2018 11:35
--- NOTE | 2018-01-04 11:21 | MB ---
cc: Edy Valdez MD DATE: 01/04/2018 REASON FOR CONSULTATION: Right leg cellulitis. CONSULTING PHYSICIAN: Dr. Oneal HISTORY OF PRESENT ILLNESS: Ángel is a 47-year-old male who has had a left leg infection. The infection began over 2 weeks ago. He was initially admitted at [facility]. He subsequently had irrigation and debridement of the left leg by Dr. Santana. The patient was discharged on oral antibiotics. He has been having home health care do dressing changes every 2 days. He began noticing increasing redness and pain. He has been on oral clindamycin. His pain has worsened. He has had some increased redness and warmth. He presented back to the emergency room for reevaluation of his leg. He is currently awake and alert in the Emergency Department. His only complaint is his right leg. PAST MEDICAL HISTORY: ILLNESSES: Diabetes, hypertension and bladder cancer. PAST SURGICAL HISTORY: Appendectomy, bladder surgery for cancer excision, and right leg irrigation and debridement. MEDICATIONS: 1. Morphine. 2. Metformin. 3. Hydrochlorothiazide. 4. Lisinopril. 5. Levemir. 6. Clindamycin. ALLERGIES: CARBAMAZEPINE. CEPHALEXIN. ERYTHROMYCIN. PENICILLIN. HYDROCODONE. SOCIAL HISTORY: The patient denies alcohol, tobacco or drug use. FAMILY HISTORY: Noncontributory. REVIEW OF SYSTEMS: The patient denies headache, visual changes, neck pain, chest pain, shortness of breath, abdominal pain, nausea, vomiting, recent weight loss, chills, recent weight loss, numbness or tingling of extremities. He complains of right leg swelling and pain. He also has had some subjective fevers. LABORATORY DATA: The patient's white blood cell count of 5.6, hematocrit 37, platelet count of 256. C-reactive protein is 1.13. IMAGING STUDIES: CT scan of the right leg was reviewed. The patient has no visible abscess or fluid collection. There is subcutaneous swelling consistent with cellulitis. PHYSICAL EXAMINATION: GENERAL: The patient is a 47-year-old male who is awake and alert. He is moderately overweight. He is awake and alert. VITAL SIGNS: Temperature 97.9, pulse 60, respirations 18, blood pressure 143/81, O2 saturation 96% on room air. HEENT: Head: The patient is normocephalic. Pupils are equal. NECK: Soft, nontender. The trachea is in the midline. ABDOMEN: Soft, nontender, nondistended. EXTREMITIES: Examination of the bilateral upper extremities reveals no pain with shoulder, elbow or wrist motion. He has intact sensation in all fingers. He has good capillary refill at fingers. Skin is intact. Radial pulses are palpable. Examination of right leg reveals no pain with hip or knee motion. He has cellulitis along the middle and distal tibias. Surgical incisions are healing. There is a small open wound over the anterior ankle. He has minimal pain with ankle motion. He has no redness or warmth over the fibula. He has no tenderness over the hardware of the fibula. Examination of the left leg reveals no pain with hip, knee or ankle motion. Skin is intact. Dorsalis pedis pulse is palpable. IMPRESSION: 1. Right leg cellulitis. 2. Diabetes. 3. Hypertension. 4. Obesity. PLAN: Treatment options were discussed with the patient. At this point, I do not see any need for orthopedic surgical intervention. There is no visible fluid collection. The patient may need to be admitted for a change of his antibiotics. Dr. Santana will be consulted as he recently operated on the patient. At this point, I do not see a need for further surgical intervention. The patient may weight-bear as tolerated. All questions were answered. MD ARLENE Ivey/WALTER , 11:03 AM , 11:20 AM
[2018-01-04 12:00] VITALS: BP 133/99; PULSE 66; RESP 18; TEMP 98; O2SAT 98
--- NOTE | 2018-01-04 13:36 | PD.ID.CON ---
History of Present Illness Service ID Consult Requested By Dr Gibbs Reason for Consult abscess, failed abx o/p Primary Care Physician No Primary Care Physician Diagnoses: History of Present Illness 47 yo male with remote R fibula hardware placement presnted 3 weeks ago with R lower leg cellulitis and prominentn abscess grew viridans strep S to clinda h/o multiple abx allergies sp I+ D by Dr Marylu Santana last adfmission, follwoed by po clinda - failed - cont to have drainage from the wound, pain and some fever CT showed no osteo or communication with [facility] - radiolofgist afebrile, niormal WBC, but ESR 114! Past Family Social History Allergies: Coded Allergies: carbamazepine (Verified Allergy, Severe, HIVES, 01/03/18) cephalexin (Verified Allergy, Severe, Rash, 01/03/18) erythromycin base (Verified Allergy, Severe, RASH, 01/03/18) penicillin G (Verified Allergy, Severe, RASH, 01/03/18) phenytoin (Verified Allergy, Severe, RASH, 01/03/18) hydrocodone (Verified Allergy, Unknown, HIVES, 01/03/18) acetaminophen (Verified Adverse Reaction, Severe, "UPSETS HIS STOMACH", 09/10) ALLERGIC TO CODEINE NOT THE ACETAMINOPHEN codeine (Verified Adverse Reaction, Severe, "UPSETS HIS STOMACH", 01/03/18) ALLERGIC TO CODEINE NOT THE ACETAMINOPHEN *MDRO Multi-Drug Resistant Organism (Verified Adverse Reaction, Unknown, ) 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) Past Medical History Diabetes Chronic pain management Past Surgical History Multiple bladder surgeries for cancer Appendectomy Right ankle surgery several decades ago Active Ordered Medications Medications where reviewed in EMR Antibiotics Include: meropenem vanco Family History Mother has diabetes Social History No tobacco or alcohol dependency, 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 TUBES/LINES/DRAINS: SKIN: No jaundice, rashes, or lesions. Ecchymoses on upper extremities. No wounds seen anteriorly. Skin temperature appropriate. Not diaphoretic. HEAD: Atraumatic. Normocephalic. EYES: Pupils equal and round and reactive. Extraocular motions intact. No scleral icterus. No injection or drainage. Fundi not examined. ENT: Hearing grossly normal. Nose without bleeding or purulent drainage. Throat without visible erythema, exudates, masses, or lesions. NECK: Trachea midline. Supple, nontender. No palpable thyroid enlargement or nodularity. CARDIOVASCULAR: Regular rate and rhythm without murmurs, gallops, or rubs. No JVD. Peripheral pulses symmetric. RESPIRATORY/CHEST: Symmetric, unlabored respirations. Clear to auscultation. Breath sounds equal bilaterally. No wheezes, rales, or rhonchi. GASTROINTESTINAL: Abdomen soft, non-tender, nondistended. No hepato-splenomegaly , or palpable masses. No guarding. Bowel sounds present. MUSCULOSKELETAL: Extremities without clubbing, cyanosis, or edema. No joint tenderness or effusion noted. No calf tenderness. No mottling or clubbing. STATUS LOCALIS: distal ankle wound with some odorless pus present Also mildly fluctiant area on tibia covered by crust + some erythema LYMPHATICS: No palpable cervical or supraclavicular adenopathy. NEUROLOGICAL: Awake and alert. Motor and sensory grossly within normal limits. Follows commands. Cognitively sharp. Moves all extremities. PSYCHIATRIC: No obvious anxiety/depression. no apparent hallucinations or other psychotic thought process. Laboratory Laboratory Tests Test 01/03/18 21:27 White Blood Count 5.6 Red Blood Count 4.88 Hemoglobin 12.4 Hematocrit 37.8 Mean Corpuscular Volume 77.6 Mean Corpuscular Hemoglobin 25.4 Mean Corpuscular Hemoglobin Concent 32.8 Red Cell Distribution Width 13.9 Platelet Count 256 Mean Platelet Volume 8.0 Neutrophils (%) (Auto) 43.8 Lymphocytes (%) (Auto) 43.1 Monocytes (%) (Auto) 8.6 Eosinophils (%) (Auto) 3.8 Basophils (%) (Auto) 0.7 Neutrophils # (Auto) 2.5 Lymphocytes # (Auto) 2.4 Monocytes # (Auto) 0.5 Eosinophils # (Auto) 0.2 Basophils # (Auto) 0.0 CBC Comment DIFF FINAL Differential Comment Erythrocyte Sedimentation Rate 114 Blood Urea Nitrogen 11 Creatinine 0.82 Random Glucose 171 Calcium Level 8.7 Sodium Level 138 Potassium Level 3.4 Chloride Level 102 Carbon Dioxide Level 30.4 Anion Gap 6 Estimat Glomerular Filtration Rate 102 C-Reactive Protein 1.13 Date/Time Source Procedure Growth Status 01/03/18 21:27 Blood Peripheral Aerobic Blood Culture - Preliminary NO GROWTH IN 1 DAY Resulted 01/03/18 21:27 Blood Peripheral Anaerobic Blood Culture - Preliminary NO GROWTH IN 1 DAY Resulted 01/03/18 21:00 Wound Leg Gram Stain - Final Resulted 01/03/18 21:00 Wound Leg Wound Culture Pending Resulted Result Diagram: 01/03/18212601/03/182126 Imaging Last Impressions Lower Extremity CT 01/03/18 0000 Signed Impressions: Service Date/Time: December 22:45 - CONCLUSION: No evidence of osteomyelitis. Blayne Núñez MD Assessment and Plan Assessment and Plan RLE infx, abscess, cellulitis, vir strep s/p I+D - ipsilateral hardware, - CT not cw oste - very high ESR Failed 2 wks of clindamycin cont vanco , meropenem I+D the R LE abscess Jayna Melgoza MD Jan 04, 2018 13:36
[2018-01-04 16:00] VITALS: BP 175/80; PULSE 62; RESP 20; TEMP 97.9; O2SAT 97
[2018-01-04] MEDS ORDERED: traMADol HCL 50 MG TAB PO PRN (16:15)
[2018-01-04] MEDS ORDERED: MORPHINE SULFATE 4 MG/ML INJ IV PUSH PRN (16:15)
[2018-01-05] MEDS ORDERED: PHARMACY ORDERED LAB ONE (04:45)
== END 2018-01-04 18:06 | disposition left against medical advice (07) ==
LOC: PHED 19:59 → PHEDA 01-04 00:10 → UNDOADMIN 01-04 00:10 → NEDA 01-04 04:21 → N05B 01-04 13:30
PROVIDERS: ADMIT Hospitalist; ATTEND Hospitalist
DX: L03.115 Cellulitis of right lower limb (principal); E11.9 Type 2 diabetes mellitus without complications; I10 Essential (primary) hypertension; C67.9 Malignant neoplasm of bladder, unspecified; G47.30 Sleep apnea, unspecified; B19.20 Unspecified viral hepatitis C without hepatic coma; E66.9 Obesity, unspecified; Z79.899 Other long term (current) drug therapy
CPT/HCPCS: 73701; 80048; 82948; 85025; 85652; 86140; 87040; 87070; 87205; 96361; 96365; 96366; 96367; 96372; 96375; 96376; 99285; G0378; J1815; J1885; J2185; J2270; J3370; J7030; J7040; J7050; Q9967; J2543

== ENCOUNTER 2018-01-12 08:36 | Observation (INO) | payer SELFPAY ==
[~2018-01-12] VITALS: Ht 188 cm; Wt 135.3 kg
[2018-01-12] VITALS (8 sets, daily range): BP systolic 137–185; BP diastolic 92–122; PULSE 59–76; RESP 16–20; TEMP 96.8–98.5; O2SAT 96–100
[2018-01-12] MEDS ORDERED: CLINDAMYCIN INJ 900 MG in SODIUM CHLORIDE 0.9% INJ 100 ML IV ONE (09:45)
--- NOTE | 2018-01-12 10:05 | PD ---
HPI Chief Complaint: Skin Problem Time Seen by Provider: 09:37 Travel History International Travel<30 days: No Contact w/Intl Traveler<30days: No Traveled to known affect area: No History of Present Illness HPI Patient presents with complaints of right lower extremity pain swelling and fever. Reports a history in mid November of presentation with abscess on his right lower extremity. Patient was admitted and underwent surgical debridement with wound care. Discharged with home health and wound care with oral clindamycin. In early December it was recommended he return to the hospital by his home health nurse. Patient was admitted and transferred to the [facility] with consultations by orthopedics surgery and infectious disease. CT of the right lower extremity was negative for osteomyelitis. Started on IV Vanco. Wound culture was positive for strep and susceptible to clindamycin. After approximately 24 hours patient left AMA with continued home health and wound care and no oral antibiotics. 8 days have passed since he left AMA. Home health nurse again encouraged him to return to the emergency room for reevaluation. Patient states over the last 8 days the right lower extremity has become more painful with increased swelling and a subjective fever last night. He is a diabetic with poor control. Pain currently 8 out of 10. History of IV drug use. Requesting reevaluation, states he was wrong in leaving and is eager to make the effort to get better. PFSH Past Medical History Arthritis: Yes Asthma: No Autoimmune Disease: No Blood Disorders: No Anxiety: No Depression: No Cancer: Yes (Bladder ) Cardiovascular Problems: Yes (HTN) High Cholesterol: No Chemotherapy: Yes (2015) Chest Pain: No Congestive Heart Failure: No COPD: No Cerebrovascular Accident: Yes Diabetes: Yes (ON METFORMIN AND INSULIN) Diminished Hearing: No Endocrine: No Gastrointestinal Disorders: No Genitourinary: Yes (BLADDER CANCER) Headaches: Yes Hepatitis: Yes (HEPATITIS C) Hiatal Hernia: No Heparin Induced Thrombocytopen: No Hypertension: Yes Immune Disorder: No Implanted Vascular Access Dvce: Yes Kidney Stones: Yes Musculoskeletal: Yes (LOWER BACK DISC PROBLEM, ARTHRITIS) Neurologic: Yes (SEIZURES) Psychiatric: No Reproductive: No Respiratory: Yes (SLEEP APNEA) Migraines: No Radiation Therapy: Yes (2013) Renal Failure: No Seizures: Yes (HEAD INJURY) Sickle Cell Disease: No Sleep Apnea: Yes Thyroid Disease: No Past Surgical History Abdominal Surgery: Yes (APPENDECTOMY) AICD: No Appendectomy: Yes Arteriovenous Shunt: No Body Medical Devices: plate in right ankle, SHRAPNEL L THIGH Cardiac Surgery: No Ear Surgery: No Endocrine Surgery: No Eye Surgery: No Genitourinary Surgery: Yes (10 SURGERIES ON BLADDER cancer ) Gynecologic Surgery: No Hysterectomy: Yes Insulin Pump: No Joint Replacement: No Neurologic Surgery: No Oral Surgery: No Pacemaker: No Thoracic Surgery: No Other Surgery: Yes (Right ankle surgery for cellulitis ) Social History Alcohol Use: No Tobacco Use: No (quit 2006) Substance Use: No Allergies-Medications (Allergen,Severity, Reaction): Coded Allergies: carbamazepine (Verified Allergy, Severe, HIVES, 01/12/18) cephalexin (Verified Allergy, Severe, Rash, 01/12/18) erythromycin base (Verified Allergy, Severe, RASH, 01/12/18) penicillin G (Verified Allergy, Severe, RASH, 01/12/18) phenytoin (Verified Allergy, Severe, RASH, 01/12/18) hydrocodone (Verified Allergy, Unknown, HIVES, 01/12/18) acetaminophen (Verified Adverse Reaction, Severe, "UPSETS HIS STOMACH", ) ALLERGIC TO CODEINE NOT THE ACETAMINOPHEN codeine (Verified Adverse Reaction, Severe, "UPSETS HIS STOMACH", 01/12/18) ALLERGIC TO CODEINE NOT THE ACETAMINOPHEN *MDRO Multi-Drug Resistant Organism (Verified Adverse Reaction, Unknown, ) 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 Poly-Iron 150 (Polysaccharide Iron Complex) 150 Mg Iron Cap 150 Mg PO Q12HR 60 Days Clindamycin (Clindamycin HCl) 300 Mg Cap 300 Mg PO Q6H 14 Days Walker/Extended Frame (Device) 1 Mis Mis Ea .XX DIRECTED Bariatric clifford Review of Systems General / Constitutional: No: Fever Eyes: No: Visual changes HENT: No: Headaches Cardiovascular: No: Chest Pain or Discomfort Respiratory: No: Shortness of Breath Gastrointestinal: No: Abdominal Pain Genitourinary: No: Dysuria Musculoskeletal: Positive: Pain Skin: Positive Change in Pigmentation, No Rash Neurologic: No: Weakness Psychiatric: No: Depression Endocrine: No: Polydipsia Hematologic/Lymphatic: No: Easy Bruising Physical Exam Narrative GENERAL: Well-nourished, well-developed patient. SKIN: Focused skin assessment warm/dry. HEAD: Normocephalic. EYES: No scleral icterus. No injection or drainage. NECK: Supple, trachea midline. No JVD or lymphadenopathy. CARDIOVASCULAR: Regular rate and rhythm without murmurs, gallops, or rubs. RESPIRATORY: Breath sounds equal bilaterally. No accessory muscle use. GASTROINTESTINAL: Abdomen soft, non-tender, nondistended. MUSCULOSKELETAL: No cyanosis, or edema. BACK: Nontender without obvious deformity. No CVA tenderness. Right lower extremity with venous stasis changes and edema. Dorsal pedis pulses palpable. There is a open wound measuring approximately 1 x 2 cm without significant drainage Data Data Last Documented VS Vital Signs Date Time Temp Pulse Resp B/P (MAP) Pulse Ox O2 Delivery O2 Flow Rate FiO2 01/12/18 12:25 59 16 162/99 (120) 97 Room Air 01/12/18 08:39 98.5 Orders Orders Sepsis Workup Initiated (01/12/18 ) Complete Blood Count With Diff (01/12/18 09:37) Comprehensive Metabolic Panel (01/12/18 09:37) Lactic Acid Sepsis Protocol (01/12/18 09:37) Blood Culture (01/12/18 09:37) Wound Culture And Gram Stain (01/12/18 09:37) Blood Glucose (01/12/18 09:37) Ecg Monitoring (01/12/18 09:37) Iv Access Insert/Monitor (01/12/18 09:37) Oximetry (01/12/18 09:37) Oxygen Administration (01/12/18 09:37) Clindamycin Inj (Cleocin Inj) (01/12/18 09:45) Morphine Inj (Morphine Inj) (01/12/18 12:30) Clindamycin 900 Mg/Ns Premix (Cleocin 90 (01/12/18 12:30) Admit Order (Ed Use Only) (01/12/18 ) Vital Signs (Adult) Q4H (01/12/18 12:50) Diet 1999 Ada Cons Carb (01/12/18 Lunch) Activity Oob With Assistance (01/12/18 12:50) Notify Dr: Other (01/12/18 12:50) Labs Laboratory Tests Test 01/12/18 11:29 White Blood Count 6.1 TH/MM3 Red Blood Count 4.80 MIL/MM3 Hemoglobin 12.0 GM/DL Hematocrit 37.6 % Mean Corpuscular Volume 78.2 FL Mean Corpuscular Hemoglobin 25.1 PG Mean Corpuscular Hemoglobin Concent 32.1 % Red Cell Distribution Width 13.2 % Platelet Count 252 TH/MM3 Mean Platelet Volume 8.1 FL Neutrophils (%) (Auto) 65.1 % Lymphocytes (%) (Auto) 27.7 % Monocytes (%) (Auto) 4.3 % Eosinophils (%) (Auto) 2.0 % Basophils (%) (Auto) 0.9 % Neutrophils # (Auto) 3.9 TH/MM3 Lymphocytes # (Auto) 1.7 TH/MM3 Monocytes # (Auto) 0.3 TH/MM3 Eosinophils # (Auto) 0.1 TH/MM3 Basophils # (Auto) 0.1 TH/MM3 CBC Comment DIFF FINAL Differential Comment Blood Urea Nitrogen 11 MG/DL Creatinine 0.54 MG/DL Random Glucose 150 MG/DL Total Protein 8.7 GM/DL Albumin 3.4 GM/DL Calcium Level 8.8 MG/DL Alkaline Phosphatase 93 U/L Aspartate Amino Transf (AST/SGOT) 46 U/L Alanine Aminotransferase (ALT/SGPT) 87 U/L Total Bilirubin 0.3 MG/DL Sodium Level 138 MEQ/L Potassium Level 3.9 MEQ/L Chloride Level 104 MEQ/L Carbon Dioxide Level 29.3 MEQ/L Anion Gap 5 MEQ/L Estimat Glomerular Filtration Rate 165 ML/MIN Lactic Acid Level 1.1 mmol/L MDM Medical Decision Making Medical Screen Exam Complete: Yes Emergency Medical Condition: Yes Differential Diagnosis Cellulitis with failed outpatient treatment, fever, osteomyelitis Narrative Course Assessment and plan discussed with patient at bedside. Difficult to establish line. Left external jugular obtained. Physician Communication Physician Communication Spoke with Dr. Husain who is in agreement will admit Diagnosis Primary Impression: Cellulitis of right lower extremity Carlos Torres MD Jan 12, 2018 10:05
[2018-01-12 11:45] LABS: AUTOMATED NEUTROPHIL # 3.9 TH/MM3 (1.8-7.7); BASOPHIL # 0.1 TH/MM3 (0-0.2); BASOPHIL % 0.9 % (0.0-2.0); EOSINOPHIL # 0.1 TH/MM3 (0-0.4); HEMATOCRIT 37.6 % (39.0-51.0); LYMPH % 27.7 % (9.0-44.0); LYMPHOCYTE # 1.7 TH/MM3 (1.0-4.8); MEAN CELL VOLUME 78.2 FL (80.0-100.0); MEAN CORPUSCULAR HEMOGLOBIN 25.1 PG (27.0-34.0); MEAN CORPUSCULAR HGB CONC 32.1 % (32.0-36.0); MEAN PLATELET VOLUME 8.1 FL (7.0-11.0); MONO % 4.3 % (0.0-8.0); MONOCYTE # 0.3 TH/MM3 (0-0.9); NEUT % 65.1 % (16.0-70.0); PLATELET COUNT 252 TH/MM3 (150-450); RED CELL DISTRIBUTION WIDTH 13.2 % (11.6-17.2); WHITE BLOOD COUNT 6.1 TH/MM3 (4.0-11.0)
[2018-01-12 12:02] LABS: CHLORIDE 104 MEQ/L (98-107); SODIUM (NA) 138 MEQ/L (136-145)
[2018-01-12 12:05] LABS: CALCIUM 8.8 MG/DL (8.5-10.1)
[2018-01-12 12:06] LABS: ALBUMIN 3.4 GM/DL (3.4-5.0); BICARBONATE 29.3 MEQ/L (21.0-32.0); BLOOD UREA NITROGEN 11 MG/DL (7-18); GLUCOSE,RANDOM 150 MG/DL (74-106)
[2018-01-12 12:09] LABS: ALT (GPT) 87 U/L (12-78); AST (GOT) 46 U/L (15-37); CREATININE 0.54 MG/DL (0.60-1.30); GLOMERULAR FILTRATION RATE 165 ML/MIN (>89)
[2018-01-12 12:10] LABS: TOTAL BILIRUBIN ADULT 0.3 MG/DL (0.2-1.0)
[2018-01-12 12:11] LABS: TOTAL PROTEIN 8.7 GM/DL (6.4-8.2)
[2018-01-12 12:12] LABS: ALKALINE PHOSPHATASE 93 U/L (45-117)
[2018-01-12] MEDS ORDERED: MORPHINE SULFATE 4 MG/ML INJ IV PUSH ONE ×2 (12:30→13:00)
[2018-01-12] MEDS ORDERED: CLINDAMYCIN 900 MG/NS PREMIX 50 ML IV ONE (12:30)
[2018-01-12] MEDS ORDERED: NALOXONE HCL 0.4 MG/ML AMP IV PUSH PRN (13:45)
[2018-01-12] MEDS ORDERED: DEXTROSE 50% IN WATER 50 ML VIAL(D50) IV PUSH PRN (13:45)
[2018-01-12] MEDS ORDERED: ONDANSETRON HCL 4 MG/2 ML VIAL IVP PRN (13:45)
[2018-01-12] MEDS ORDERED: SODIUM CHLORIDE 0.9% FLUSH 10 ML FLUSH IV FLUSH PRN (13:45)
[2018-01-12] MEDS ORDERED: MORPHINE SULFATE 15 MG TAB PO PRN (13:45)
[2018-01-12] MEDS ORDERED: LACTULOSE SYRUP 20 GM/30 ML CUP PO PRN (13:45)
[2018-01-12] MEDS ORDERED: IBUPROFEN 400 MG TAB PO PRN (13:45)
[2018-01-12] MEDS ORDERED: GLUCAGON 1 MG/ML VIAL OTHER PRN (13:45)
[2018-01-12] MEDS ORDERED: MAGNESIUM HYDROXIDE SUSP 30 ML CUP PO PRN (13:45)
--- NOTE | 2018-01-12 14:06 | HHI.HP ---
HPI Service [facility] Primary Care Physician No Primary Care Physician Admission Diagnosis Right lower extremity cellulitis Diagnoses: Chief Complaint: Leg pain and fever Travel History International Travel<30 Days: No Contact w/Intl Traveler <30 Da: No Traveled to Known Affected Are: No History of Present Illness This patient is a 47-year-old gentleman with a history of diabetes and hypertension and poor adherence to medical treatment plan who comes to the hospital complaining of increased pain and swelling for 3 days. Also with fever at home improved with Tylenol. Patient does have a right lower extremity infection that has been being treated in the hospital since November. Apparently in November she had an abscess which required an I&D and wound VAC he was treated for that and discharged on antibiotics. He had antibiotics at discharge and did come back to the hospital for further evaluation due to recurrent pain and swelling. He did leave at that hospitalization AGAINST MEDICAL ADVICE after receiving about 24 hours of IV antibiotics. He then resumed his previous clindamycin dose from November and completed those antibiotics. At this time he has increased pain in the lower extremity and fever at home. He does not have leukocytosis or fever here. On my exam the right lower extremity appears greatly improved from the initial evaluation. There is still some edema and violaceous coloring of the skin likely due to chronic edema from previous surgical history and ankle replacement. Patient said he had difficulty with follow-up since his discharge because of insurance status and difficulty finding a primary care physician. At this time the patient's chief complaint is pain. It is unclear whether he has pain medication at home or if this is a new issue pain medication at home and ran out of this is a new issue due to recurrent infection. Patient is recommended for observation due to the pain and for a short course of antibiotics. This is expressed at length with the patient was agreeable. Review of Systems Constitutional: DENIES: Diaphoretic episodes, Fatigue, Fever, Weight gain, Weight loss, Chills, Dizziness, Change in appetite, Night Sweats Endocrine: DENIES: Heat/cold intolerance, Polydipsia, Polyuria, Polyphagia Eyes: DENIES: Blurred vision, Diplopia, Eye inflammation, Eye pain, Vision loss , Photosensitivity, Double Vision Ears, nose, mouth, throat: DENIES: Tinnitus, Hearing loss, Vertigo, Nasal discharge, Oral lesions, Throat pain, Hoarseness, Ear Pain, Running Nose, Epistaxis, Sinus Pain, Toothache, Odynophagia Respiratory: DENIES: Apneas, Cough, Snoring, Wheezing, Hemoptysis, Sputum production, Shortness of breath Cardiovascular: DENIES: Chest pain, Palpitations, Syncope, Dyspnea on Exertion , PND, Lower Extremity Edema, Orthopnea, Claudication Gastrointestinal: DENIES: Abdominal pain, Black stools, Bloody stools, Constipation, Diarrhea, Nausea, Vomiting, Difficulty Swallowing, Anorexia Genitourinary: DENIES: Sexual dysfunction, Urinary frequency, Urinary incontinence, Urgency, Hematuria, Dysuria, Nocturia, Penile Discharge, Testicular Pain, Testicular Swelling Musculoskeletal: COMPLAINS OF: Joint pain, Joint Swelling, DENIES: Muscle aches , Stiffness, Back pain, Neck pain Integumentary: DENIES: Abnormal pigmentation, Nail changes, Pruritus, Rash Hematologic/lymphatic: DENIES: Bruising, Lymphadenopathy Immunologic/allergic: DENIES: Eczema, Urticaria Neurologic: DENIES: Abnormal gait, Headache, Localized weakness, Paresthesias, Seizures, Speech Problems, Tremor, Poor Balance Psychiatric: DENIES: Anxiety, Confusion, Mood changes, Depression, Hallucinations, Agitation, Suicidal Ideation, Homicidal Ideation, Delusions Except as stated in HPI: all other systems reviewed are Neg Past Family Social History Past Medical History Diabetes Retention Bladder cancer Chronic pain Seizure disorder, stable Sleep apnea Hepatitis C Past Surgical History Appendectomy Multiple urological surgeries for bladder cancer Right ankle plate Wrist surgery Recent debridement of right leg abscess Reported Medications Reviewed in the EMR, was taking Allergies: Coded Allergies: carbamazepine (Verified Allergy, Severe, HIVES, 01/12/18) cephalexin (Verified Allergy, Severe, Rash, 01/12/18) erythromycin base (Verified Allergy, Severe, RASH, 01/12/18) penicillin G (Verified Allergy, Severe, RASH, 01/12/18) phenytoin (Verified Allergy, Severe, RASH, 01/12/18) hydrocodone (Verified Allergy, Unknown, HIVES, 01/12/18) acetaminophen (Verified Adverse Reaction, Severe, "UPSETS HIS STOMACH", ) ALLERGIC TO CODEINE NOT THE ACETAMINOPHEN codeine (Verified Adverse Reaction, Severe, "UPSETS HIS STOMACH", 01/12/18) ALLERGIC TO CODEINE NOT THE ACETAMINOPHEN *MDRO Multi-Drug Resistant Organism (Verified Adverse Reaction, Unknown, ) 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 Ordered Medications Reviewed in the EMR Family History Mom is diabetic but alive and well Father of coronary artery disease at 54 Social History Patient with a history of alcohol dependency currently sober History of IV drug abuse currently sober History of tobacco abuse and currently quit Physical Exam Vital Signs Vital Signs Date Time Temp Pulse Resp B/P (MAP) Pulse Ox O2 Delivery O2 Flow Rate FiO2 01/12/18 13:05 63 16 185/122 (143) 100 Room Air 01/12/18 12:25 59 16 162/99 (120) 97 Room Air 01/12/18 11:53 62 18 149/92 (111) 96 Room Air 01/12/18 11:38 96 Room Air 01/12/18 11:38 96 Room Air 01/12/18 08:39 98.5 75 16 162/93 (116) 97 Physical Exam GENERAL: This is a well-nourished, obese, well-developed patient, in no apparent distress. SKIN: No rashes, ecchymoses or lesions. Cool and dry. HEAD: Atraumatic. Normocephalic. No temporal or scalp tenderness. EYES: Pupils equal round and reactive. Extraocular motions intact. No scleral icterus. No injection or drainage. ENT: Nose without bleeding, purulent drainage or septal hematoma. Throat without erythema, tonsillar hypertrophy or exudate. Uvula midline. Airway patent. NECK: Trachea midline. No JVD or lymphadenopathy. Supple, nontender, no meningeal signs. CARDIOVASCULAR: Regular rate and rhythm without murmurs, gallops, or rubs. RESPIRATORY: Clear to auscultation. Breath sounds equal bilaterally. No wheezes , rales, or rhonchi. GASTROINTESTINAL: Abdomen soft, non-tender, nondistended. No hepato-splenomegaly , or palpable masses. No guarding. MUSCULOSKELETAL: Right lower extremity edema with chronic skin changes probably from chronic venous stasis with old scars consistent with previous history, I do not appreciate any erythema there is mild pallor, other 3 extremities without clubbing, cyanosis, or edema. No joint tenderness, effusion , or edema noted. No calf tenderness. Negative Homans sign bilaterally. NEUROLOGICAL: Awake and alert. Cranial nerves II through XII intact. Motor and sensory grossly within normal limits. Five out of 5 muscle strength in all muscle groups. Normal speech. Laboratory Laboratory Tests Test 01/12/18 11:29 White Blood Count 6.1 Red Blood Count 4.80 Hemoglobin 12.0 Hematocrit 37.6 Mean Corpuscular Volume 78.2 Mean Corpuscular Hemoglobin 25.1 Mean Corpuscular Hemoglobin Concent 32.1 Red Cell Distribution Width 13.2 Platelet Count 252 Mean Platelet Volume 8.1 Neutrophils (%) (Auto) 65.1 Lymphocytes (%) (Auto) 27.7 Monocytes (%) (Auto) 4.3 Eosinophils (%) (Auto) 2.0 Basophils (%) (Auto) 0.9 Neutrophils # (Auto) 3.9 Lymphocytes # (Auto) 1.7 Monocytes # (Auto) 0.3 Eosinophils # (Auto) 0.1 Basophils # (Auto) 0.1 CBC Comment DIFF FINAL Differential Comment Blood Urea Nitrogen 11 Creatinine 0.54 Random Glucose 150 Total Protein 8.7 Albumin 3.4 Calcium Level 8.8 Alkaline Phosphatase 93 Aspartate Amino Transf (AST/SGOT) 46 Alanine Aminotransferase (ALT/SGPT) 87 Total Bilirubin 0.3 Sodium Level 138 Potassium Level 3.9 Chloride Level 104 Carbon Dioxide Level 29.3 Anion Gap 5 Estimat Glomerular Filtration Rate 165 Lactic Acid Level 1.1 Date/Time Source Procedure Growth Status 01/12/18 11:36 Blood Peripheral Aerobic Blood Culture Pending Received 01/12/18 11:36 Blood Peripheral Anaerobic Blood Culture Pending Received 01/12/18 11:37 Wound Leg Gram Stain Pending Received 01/12/18 11:37 Wound Leg Wound Culture Pending Received Result Diagram: 01/12/18 1129 01/12/18 112 Caprini VTE Risk Assessment Caprini VTE Risk Assessment: Mod/High Risk (score >= 2) Caprini Risk Assessment Model Point Value = 1 Point Value = 2 Point Value = 3 Point Value = 5 Age 41-60 Minor surgery BMI > 25 kg/m2 Swollen legs Varicose veins or History of unexplained or recurrent spontaneous Oral contraceptives or hormone replacement Sepsis (< 1 month) Serious lung disease, including pneumonia (< 1 month) Abnormal pulmonary function Acute myocardial infarction Congestive heart failure (< 1 month) History of inflammatory bowel disease Medical patient at bed rest Age 61-74 Arthroscopic surgery Major open surgery (> 45 min) Laparoscopic surgery (> 45 min) Malignancy Confined to bed (> 72 hours) Immobilizing plaster cast Central venous access Age >= 75 History of VTE Family history of VTE Factor V Leiden Prothrombin [id number] Lupus anticoagulant Anticardiolipin antibodies Elevated serum homocysteine Heparin-induced thrombocytopenia Other congenital or acquired thrombophilia Stroke (< 1 month) Elective arthroplasty Hip, pelvis, or leg fracture Acute spinal cord injury (< 1 month) Prophylaxis Regimen Total Risk Factor Score Risk Level Prophylaxis Regimen 0-1 Low Early ambulation 2 Moderate Order ONE of the following: *Sequential Compression Device (SCD) *Heparin 5000 units SQ BID 3-4 Higher Order ONE of the following medications: *Heparin 5000 units SQ TID *Enoxaparin/Lovenox 40 mg SQ daily (WT < 150 kg, CrCl > 30 mL/min) *Enoxaparin/Lovenox 30 mg SQ daily (WT < 150 kg, CrCl > 10-29 mL/min) *Enoxaparin/Lovenox 30 mg SQ BID (WT < 150 kg, CrCl > 30 mL/min) AND/OR *Sequential Compression Device (SCD) 5 or more Highest Order ONE of the following medications: *Heparin 5000 units SQ TID (Preferred with Epidurals) *Enoxaparin/Lovenox 40 mg SQ daily (WT < 150 kg, CrCl > 30 mL/min) *Enoxaparin/Lovenox 30 mg SQ daily (WT < 150 kg, CrCl > 10-29 mL/min) *Enoxaparin/Lovenox 30 mg SQ BID (WT < 150 kg, CrCl > 30 mL/min) AND *Sequential Compression Device (SCD) Assessment and Plan Problem List: (1) Cellulitis ICD Code: L03.90 - Cellulitis Status: Acute Plan: Continue long-term antibiotics with encouragement for follow-up in this patient with chronic infection and medical nonadherence Will observe overnight on antibiotics in manage pain [facility] discharge planning with case management antibiotics for previous S. And sensitive to clindamycin (2) Diabetes mellitus ICD Code: E11.9 - Type 2 diabetes mellitus without complications Status: Chronic Plan: Continue sliding-scale Hold metformin for now and resume at discharge Diabetic diet (3) Hypertension ICD Code: I10 - Hypertension Status: Chronic Plan: Uncontrolled due to pain per patient's report We will follow on home regimen and adjust medications as needed Dalia Husain MD Jan 12, 2018 14:06
[2018-01-12] MEDS: ENOXAPARIN SODIUM 40 MG/0.4 ML SYRINGE SQ SCH (14:45)
[2018-01-12] MEDS ORDERED: DAPTOmycin INJ 600 MG in SODIUM CHLORIDE 0.9% INJ 100 ML IV SCH (16:00)
[2018-01-12] MEDS: INSULIN ASPART SUPPLEMENTAL SCALE SQ SCH ×2 (17:20→20:37)
[2018-01-12] MEDS: MORPHINE SULFATE 15 MG TAB PO PRN (18:38)
[2018-01-12] MEDS: SODIUM CHLORIDE 0.9% FLUSH 10 ML FLUSH IV FLUSH SCH (20:02)
[2018-01-12] MEDS: MORPHINE SULFATE 30 MG CONTROLLED RELEASE TAB PO SCH (20:32)
[2018-01-12] MEDS: ENALAPRILAT 1.25 MG/ML VIAL IV PUSH PRN (20:33)
[2018-01-13] VITALS: BP 128/84; PULSE 53; RESP 20; TEMP 96.1; O2SAT 95
[2018-01-13] MEDS: MORPHINE SULFATE 15 MG TAB PO PRN ×4 (00:38→18:34)
[2018-01-13 08:00] VITALS: BP 156/111; PULSE 75; RESP 18; TEMP 97.6; O2SAT 99
[2018-01-13 08:29] LABS: AUTOMATED NEUTROPHIL # 3.9 TH/MM3 (1.8-7.7); BASOPHIL % 0.5 % (0.0-2.0); EOSINOPHIL # 0.1 TH/MM3 (0-0.4); EOSINOPHIL % 1.9 % (0.0-4.0); HEMATOCRIT 42.2 % (39.0-51.0); LYMPH % 31.7 % (9.0-44.0); MEAN CELL VOLUME 76.8 FL (80.0-100.0); MEAN CORPUSCULAR HEMOGLOBIN 26.1 PG (27.0-34.0); MONO % 5.4 % (0.0-8.0); MONOCYTE # 0.3 TH/MM3 (0-0.9); NEUT % 60.5 % (16.0-70.0); PLATELET COUNT 294 TH/MM3 (150-450); RED CELL DISTRIBUTION WIDTH 13.8 % (11.6-17.2); WHITE BLOOD COUNT 6.3 TH/MM3 (4.0-11.0)
[2018-01-13 08:34] LABS: HEMOGLOBIN 14.4 GM/DL (13.0-17.0)
[2018-01-13] MEDS: LISINOPRIL 20 MG TAB PO SCH (08:51)
[2018-01-13] MEDS: MORPHINE SULFATE 30 MG CONTROLLED RELEASE TAB PO SCH ×2 (08:52→20:45)
[2018-01-13] MEDS: SODIUM CHLORIDE 0.9% FLUSH 10 ML FLUSH IV FLUSH SCH ×2 (08:52→20:22)
[2018-01-13] MEDS: HYDROCHLOROTHIAZIDE 25 MG TAB PO SCH (08:52)
[2018-01-13] MEDS: INSULIN ASPART SUPPLEMENTAL SCALE SQ SCH ×4 (08:52→20:59)
[2018-01-13] MEDS: CLINDAMYCIN 900 MG/NS PREMIX 50 ML IV SCH ×3 (11:07→20:45)
--- NOTE | 2018-01-13 11:34 | HHI.PR ---
Subjective Remarks Follow-up right leg cellulitis and diabetes. Patient seen and examined, sitting on side of bed, mother at bedside. Blood pressure elevated, suspect secondary to pain. Right leg assessed, erythema mild, mild swelling. Actually looks much improved since last admission. Pain is well controlled now. We will continue to monitor. Objective Vitals Vital Signs Date Time Temp Pulse Resp B/P (MAP) Pulse Ox O2 Delivery O2 Flow Rate FiO2 01/13/18 08:00 97.6 75 18 156/111 (126) 99 01/13/18 00:00 96.1 53 20 128/84 (99) 95 01/12/18 20:00 96.8 76 20 176/103 (127) 97 01/12/18 16:30 98.1 59 18 137/96 (110) 100 01/12/18 16:10 18 01/12/18 13:51 01/12/18 13:48 179/99 (125) 01/12/18 13:05 63 16 185/122 (143) 100 Room Air 01/12/18 12:25 59 16 162/99 (120) 97 Room Air 01/12/18 11:53 62 18 149/92 (111) 96 Room Air 01/12/18 11:38 96 Room Air 01/12/18 11:38 96 Room Air I/O 01/12/18 01/12/18 01/12/18 01/13/18 01/13/18 01/13/18 06:59 14:59 22:59 06:59 14:59 22:59 Intake Total 106 ml 240 ml 720 ml Balance 106 ml 240 ml 720 ml Intake Oral 240 ml 720 ml IV Total 106 ml # Voids 4 Result Diagram: 01/13/18 0809 01/12/18 1129 Objective Remarks GENERAL: Well-developed, well-nourished patient in NAD. Obese. SKIN: Warm and dry. No rash. Right lower leg cellulitis, multiple healing wounds, no drainage, erythema mild on mid palafox, some swelling, right ankle swelling. HEAD: Normocephalic. Atraumatic. EYES: Pupils equal and round. No scleral icterus. No injection or drainage. ENT: No nasal bleeding or discharge. Mucous membranes pink and moist. NECK: Supple. Trachea midline. CARDIOVASCULAR: Regular rate and rhythm. S1, S2 noted. No murmur appreciated. RESPIRATORY: No accessory muscle use. Clear to auscultation. Breath sounds equal bilaterally. GASTROINTESTINAL: Abdomen soft, non-tender, nondistended. Normoactive bowel sounds x4. MUSCULOSKELETAL: No obvious deformities. NEUROLOGICAL: Awake and alert. No obvious cranial nerve deficits. Motor grossly within normal limits. 5/5 muscle strength in bilateral upper and lower extremities. Normal speech. PSYCHIATRIC: Appropriate mood and affect; insight and judgment normal. A/P Problem List: (1) Cellulitis ICD Code: L03.90 - Cellulitis Status: Acute Plan: Continue long-term antibiotics with encouragement for follow-up in this patient with chronic infection and medical nonadherence Will observe overnight on antibiotics in manage pain [employer] [place] discharge planning with case management antibiotics for previous S. And sensitive to clindamycin, continue. Will assess wound in a.m. Monitor for infection. Wound culture pending. (2) Diabetes mellitus ICD Code: E11.9 - Type 2 diabetes mellitus without complications Status: Chronic Plan: Continue sliding-scale, insulin, cover as needed. Hold metformin for now and resume at discharge. Diabetic diet (3) Hypertension ICD Code: I10 - Hypertension Status: Chronic Plan: Uncontrolled due to pain per patient's report We will follow on home regimen and adjust medications as needed. Continue lisinopril/HCTZ. Vasotec as needed. DVT prophylaxis: Lovenox. Ginger Zavala Jan 13, 2018 11:34
[2018-01-13 12:00] VITALS: BP 133/86; PULSE 60; RESP 18; TEMP 97.6; O2SAT 95
[2018-01-13] MEDS: ENOXAPARIN SODIUM 40 MG/0.4 ML SYRINGE SQ SCH (15:48)
[2018-01-13 16:16] VITALS: BP 136/96; PULSE 67; RESP 18; TEMP 98.2; O2SAT 97
[2018-01-13 20:00] VITALS: BP 126/79; PULSE 77; RESP 18; TEMP 97.8; O2SAT 98
[2018-01-13] MEDS: ENALAPRILAT 1.25 MG/ML VIAL IV PUSH PRN (20:46)
[2018-01-14] VITALS: BP 112/75; PULSE 61; RESP 19; TEMP 97.5; O2SAT 92
[2018-01-14] MEDS: MORPHINE SULFATE 15 MG TAB PO PRN ×2 (00:44→06:32)
[2018-01-14] MEDS: CLINDAMYCIN 900 MG/NS PREMIX 50 ML IV SCH ×2 (06:32→10:00)
[2018-01-14 07:30] VITALS: BP 134/80; PULSE 71; RESP 20; TEMP 96.5; O2SAT 96
[2018-01-14] MEDS: INSULIN ASPART SUPPLEMENTAL SCALE SQ SCH (07:46)
--- NOTE | 2018-01-14 08:39 | HHI.PR ---
Subjective Remarks Follow-up right lower leg cellulitis. Patient seen and examined, lying in bed comfortably in no apparent distress. Denies any acute events overnight. Afebrile overnight. Wound cultures negative. Blood sugar is adequately controlled with sliding scale insulin. Pain controlled. Objective Vitals Vital Signs Date Time Temp Pulse Resp B/P (MAP) Pulse Ox O2 Delivery O2 Flow Rate FiO2 01/14/18 07:33 18 01/14/18 00:00 97.5 61 19 112/75 (87) 92 01/13/18 20:00 97.8 77 18 126/79 (95) 98 01/13/18 16:16 98.2 67 18 136/96 (109) 97 01/13/18 12:00 97.6 60 18 133/86 (102) 95 I/O 01/13/18 01/13/18 01/13/18 01/14/18 01/14/18 01/14/18 07:00 15:00 23:00 07:00 15:00 23:00 Intake Total 720 ml 150 ml 1030 ml 240 ml Balance 720 ml 150 ml 1030 ml 240 ml Intake Oral 720 ml 980 ml 240 ml IV Total 150 ml 50 ml # Voids 4 4 4 # Bowel Movements 1 Result Diagram: 01/13/18 0809 01/12/18 1129 Objective Remarks GENERAL: Well-developed, well-nourished patient in NAD. Obese. SKIN: Warm and dry. No rash. Right lower leg cellulitis, multiple healing wounds, no drainage, erythema mild on mid palafox, some swelling, right ankle swelling. HEAD: Normocephalic. Atraumatic. EYES: Pupils equal and round. No scleral icterus. No injection or drainage. ENT: No nasal bleeding or discharge. Mucous membranes pink and moist. NECK: Supple. Trachea midline. CARDIOVASCULAR: Regular rate and rhythm. S1, S2 noted. No murmur appreciated. RESPIRATORY: No accessory muscle use. Clear to auscultation. Breath sounds equal bilaterally. GASTROINTESTINAL: Abdomen soft, non-tender, nondistended. Normoactive bowel sounds x4. MUSCULOSKELETAL: No obvious deformities. NEUROLOGICAL: Awake and alert. No obvious cranial nerve deficits. Motor grossly within normal limits. 5/5 muscle strength in bilateral upper and lower extremities. Normal speech. PSYCHIATRIC: Appropriate mood and affect; insight and judgment normal. A/P Problem List: (1) Cellulitis ICD Code: L03.90 - Cellulitis Status: Acute Plan: Continue long-term antibiotics with encouragement for follow-up in this patient with chronic infection and medical nonadherence [employer] Teacher discharge planning with case management antibiotics for previous S. And sensitive to clindamycin, continue. Monitor for infection. Wound culture negative. Blood cultures negative. (2) Diabetes mellitus ICD Code: E11.9 - Type 2 diabetes mellitus without complications Status: Chronic Plan: Continue sliding-scale, insulin, cover as needed. Hold metformin for now and resume at discharge. Diabetic diet (3) Hypertension ICD Code: I10 - Hypertension Status: Chronic Plan: Uncontrolled due to pain per patient's report We will follow on home regimen and adjust medications as needed. Continue lisinopril/HCTZ. Vasotec as needed. DVT prophylaxis: Lovenox. Ginger Zavala Jan 14, 2018 08:39
[2018-01-14] MEDS ORDERED: LEVEMIR SQ (08:56)
[2018-01-14] MEDS ORDERED: MORP1TAB25 PO (08:56)
[2018-01-14] MEDS ORDERED: MSIR15 PO (08:56)
[2018-01-14] MEDS ORDERED: CLIN300C5 PO (08:57)
--- NOTE | 2018-01-14 08:57 | HHI.DCPOC ---
Discharge Care Plan Diagnosis: (1) Cellulitis Goals to Promote Your Health * To prevent worsening of your condition and complications * To maintain your health at the optimal level Directions to Meet Your Goals Take your medications as prescribed Follow your dietary instruction Follow activity as directed Keep your appointments as scheduled Take your immunizations and boosters as scheduled If your symptoms worsen call your PCP, if no PCP go to Urgent Care Center or Emergency Room Smoking is Dangerous to Your Health. Avoid second hand smoke Call the 24-hour hour crisis hotline for domestic abuse at Ginger Zavala Jan 14, 2018 08:57
[2018-01-14] MEDS: SODIUM CHLORIDE 0.9% FLUSH 10 ML FLUSH IV FLUSH SCH (09:00)
[2018-01-14] MEDS: MORPHINE SULFATE 30 MG CONTROLLED RELEASE TAB PO SCH (09:16)
[2018-01-14] MEDS: HYDROCHLOROTHIAZIDE 25 MG TAB PO SCH (09:16)
[2018-01-14] MEDS: LISINOPRIL 20 MG TAB PO SCH (09:16)
[2018-01-14 10:16] VITALS: RESP 19
== END 2018-01-14 10:38 | disposition home or self-care (01) ==
LOC: PHED 08:36 → PHEDA 12:52 → INTOOBSV 12:52 → PH3A 13:54
PROVIDERS: ADMIT Hospitalist; ATTEND Hospitalist
DX: L03.115 Cellulitis of right lower limb (principal); I10 Essential (primary) hypertension; E11.65 Type 2 diabetes mellitus with hyperglycemia; B19.20 Unspecified viral hepatitis C without hepatic coma; G40.909 Epilepsy, unspecified, not intractable, without status epilepticus; G47.30 Sleep apnea, unspecified; G89.29 Other chronic pain; Z85.51 Personal history of malignant neoplasm of bladder; Z86.73 Personal history of transient ischemic attack (TIA), and cerebral infarction without residual deficits; Z79.899 Other long term (current) drug therapy; Z79.84 Long term (current) use of oral hypoglycemic drugs; Z87.891 Personal history of nicotine dependence
CPT/HCPCS: 80053; 82948; 83605; 85025; 85652; 87040; 87070; 87205; 96365; 96366; 96367; 96372; 96375; 96376; 99285; G0378; J1650; J1815; J2270; J2405; 96374; J0878

== ENCOUNTER 2018-02-24 20:14 | Inpatient (IN) | payer SELFPAY ==
[~2018-02-24] VITALS: Ht 188 cm; Wt 143.3 kg
[~2018-02-24 20:14] MED LIST changes: -WALKER/EXTENDED1 MIS
[2018-02-24 20:16] VITALS: BP 144/92; PULSE 111; RESP 22; TEMP 103.1; O2SAT 95
[2018-02-24 20:19] VITALS: BP 144/92; PULSE 111; RESP 22; TEMP 103.1; O2SAT 95
[2018-02-24] MEDS ORDERED: VANCOMYCIN INJ 1,000 MG in SODIUM CHLOR 0.9% 250 ML INJ 250 ML IV STA (20:41)
[2018-02-24] MEDS ORDERED: CLINDAMYCIN INJ 900 MG in SODIUM CHLORIDE 0.9% INJ 100 ML IV STA (20:41)
[2018-02-24] MEDS ORDERED: AZTREONAM INJ 2,000 MG in SODIUM CHLORIDE 0.9% INJ 100 ML IV STA (20:41)
[2018-02-24] MEDS ORDERED: SODIUM CHLOR 0.9% 1000 ML INJ 1,000 ML IV ONE (20:45)
[2018-02-24] MEDS ORDERED: IBUPROFEN 800 MG TAB PO ONE (20:45)
[2018-02-24] MEDS ORDERED: IBUP1TAB7 PO (20:47)
--- NOTE | 2018-02-24 21:23 | PD ---
HPI Chief Complaint: Skin Problem Time Seen by Provider: 20:41 Travel History International Travel<30 days: No Contact w/Intl Traveler<30days: No Traveled to known affect area: No History of Present Illness HPI 47-year-old male presents to the emergency department for complaint of fever and chills 4 days. Symptoms have persisted. Patient complains of recurrent right lower extremity pain and swelling. Patient has been hospitalized several times since December for complications associated with right lower extremity recurrent cellulitis. Patient has had previous surgery to the right ankle with retained hardware. Patient underwent abscess debridement by Dr. Santana in November. Patient has been followed by infectious disease requiring meropenem, vancomycin, and Azactam in the hospital as well as clindamycin as an outpatient. Patient states he has been through 2 rounds of outpatient antibiotic therapy including daptomycin and clindamycin and has been off antibiotic for 2-1/2 weeks. Patient has noted increased tenderness and swelling to the right anterior palafox but no spontaneous drainage has had some increased warmth no ascending erythema and no groin lymphadenopathy. Blood sugars have been running around 240 in the mornings and he has been attempting to control his diabetes. Patient has been taking antipyretics as needed for fever control. Due to persistent fever decided to come to the emergency room at this time. Patient had no headache sinus pressure drainage sore throat earache other skin rash or tenderness no joint pain or swelling no cough no congestion no nausea no vomiting no abdominal pain no diarrhea no dysuria frequency urgency or hematuria. PFSH Past Medical History Narrative Medical Bladder cancer TIA diabetes ankle fracture cellulitis abscess right lower leg lumbar disc disease appendectomy remote substance use; no tobacco use nursing notes reviewed Arthritis: Yes Asthma: No Autoimmune Disease: No Blood Disorders: No Anxiety: No Depression: No Cancer: Yes (Bladder ) Cardiovascular Problems: Yes (HTN) High Cholesterol: No Chemotherapy: Yes (2016) Chest Pain: No Congestive Heart Failure: No COPD: No Cerebrovascular Accident: Yes (TIA X2 ) Diabetes: Yes Patient Takes Glucophage: Yes (02/24/18 at 0900 ) Diminished Hearing: No Endocrine: No Gastrointestinal Disorders: No Genitourinary: Yes (BLADDER CANCER) Headaches: Yes Hepatitis: Yes (HEPATITIS C) Hiatal Hernia: No Heparin Induced Thrombocytopen: No Hypertension: Yes Immune Disorder: No Implanted Vascular Access Dvce: Yes Kidney Stones: Yes Musculoskeletal: Yes (LOWER BACK DISC PROBLEM, ARTHRITIS) Neurologic: Yes (SEIZURES) Psychiatric: No Reproductive: No Respiratory: Yes (SLEEP APNEA) Migraines: No Radiation Therapy: Yes (2013) Renal Failure: No Seizures: Yes (HEAD INJURY) Sickle Cell Disease: No Sleep Apnea: Yes Thyroid Disease: No Tetanus Vaccination: < 5 Years Influenza Vaccination: No Past Surgical History Abdominal Surgery: Yes (APPENDECTOMY) AICD: No Appendectomy: Yes Arteriovenous Shunt: No Body Medical Devices: plate in right ankle, SHRAPNEL L THIGH Cardiac Surgery: No Ear Surgery: No Endocrine Surgery: No Eye Surgery: No Genitourinary Surgery: Yes (9 SURGERIES ON BLADDER cancer ) Gynecologic Surgery: No Hysterectomy: Yes Insulin Pump: No Joint Replacement: No Neurologic Surgery: No Oral Surgery: No Pacemaker: No Thoracic Surgery: No Other Surgery: Yes (Right ankle surgery for cellulitis ) Social History Alcohol Use: No Tobacco Use: No (quit 2006) Substance Use: Yes (history ) Allergies-Medications (Allergen,Severity, Reaction): Coded Allergies: carbamazepine (Verified Allergy, Severe, HIVES, 02/24/18) cephalexin (Verified Allergy, Severe, Rash, 02/24/18) erythromycin base (Verified Allergy, Severe, RASH, 02/24/18) penicillin G (Verified Allergy, Severe, RASH, 02/24/18) phenytoin (Verified Allergy, Severe, RASH, 02/24/18) hydrocodone (Verified Allergy, Unknown, HIVES, 02/24/18) codeine (Verified Adverse Reaction, Severe, "UPSETS HIS STOMACH", 02/24/18) ALLERGIC TO CODEINE NOT THE ACETAMINOPHEN *MDRO Multi-Drug Resistant Organism (Verified Adverse Reaction, Unknown, ) 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 Metformin (Metformin HCl) 500 Mg Tab 1,000 Mg PO BIDPC 60 Days With meals Hydrochlorothiazide 25 Mg Tab 25 Mg PO DAILY 60 Days Lisinopril 20 Mg Tab 20 Mg PO DAILY 60 Days Reported Ibuprofen 800 Mg Tab 800 Mg PO TID PRN Review of Systems Except as stated in HPI: all other systems reviewed are Neg General / Constitutional: Positive: Fever, Chills HENT: No: Headaches, Sore Throat, Congestion, Neck Pain, Earache Cardiovascular: No: Chest Pain or Discomfort Respiratory: No: Cough, Shortness of Breath, Wheezing Gastrointestinal: No: Nausea, Vomiting, Diarrhea, Abdominal Pain Genitourinary: No: Dysuria, Pelvic Pain, Flank Pain Musculoskeletal: Positive: Myalgias, Arthralgias, Pain (RLE) Skin: Positive Rash (RLE) Neurologic: No: Weakness, Dizziness, Syncope Psychiatric: No: Anxiety Hematologic/Lymphatic: No: Easy Bruising Physical Exam Narrative GENERAL: Well-developed well-nourished male no acute distress no respiratory distress with fever and associated mild tachycardia tachypnea SKIN: Warm and dry. HEAD: Normocephalic. EYES: No scleral icterus. No injection or drainage. NECK: Supple, trachea midline. No JVD or lymphadenopathy. CARDIOVASCULAR: Regular rate and rhythm without murmurs, gallops, or rubs. RESPIRATORY: Breath sounds equal bilaterally. No accessory muscle use. GASTROINTESTINAL: Abdomen soft, non-tender, nondistended. MUSCULOSKELETAL: No cyanosis, or edema. Attention right lower extremity with anterior palafox soft tissue swelling without fluctuance mild induration minimal increased warmth distally foot is neurovascular tendon intact with palpable dorsalis pedis pulse 2+ and brisk capillary refill no ascending erythema or right groin lymphadenopathy; left calf medial aspect small area of erythema and induration, distally neurovascularly tendon intact. BACK: Nontender without obvious deformity. No CVA tenderness. Data Data Last Documented VS Vital Signs Date Time Temp Pulse Resp B/P (MAP) Pulse Ox O2 Delivery O2 Flow Rate FiO2 02/25/18 00:40 98.3 87 18 145/95 (112) 97 Room Air Orders Orders Sepsis Workup Initiated (02/24/18 ) Complete Blood Count With Diff (02/24/18 20:41) Comprehensive Metabolic Panel (02/24/18 20:41) Lactic Acid Sepsis Protocol (02/24/18 20:41) Ckmb (Isoenzyme) Profile (02/24/18 20:41) Urinalysis - C+S If Indicated (02/24/18 20:41) Blood Culture (02/24/18 20:41) Blood Glucose (02/24/18 20:41) Ecg Monitoring (02/24/18 20:41) Iv Access Insert/Monitor (02/24/18 20:41) Oximetry (02/24/18 20:41) Oxygen Administration (02/24/18 20:41) Aztreonam Inj (Azactam Inj) (02/24/18 20:41) Clindamycin Inj (Cleocin Inj) (02/24/18 20:41) Vancomycin Inj (Vancomycin Inj) (02/24/18 20:41) Ibuprofen (Motrin) (02/24/18 20:45) Ct Tib/Fib W Iv Contrast (02/24/18 ) Sodium Chlor 0.9% 1000 Ml Inj (Ns 1000 M (02/24/18 20:45) Chest, Single Ap (02/24/18 ) Acetaminophen (Tylenol) (02/24/18 22:45) Admit Order (Ed Use Only) (02/25/18 ) Preparation Plant Repairer / Telemetry [email or web address] (02/25/18 00:39) Activity Oob With Assistance (02/25/18 00:39) Notify Dr: Other (02/25/18 00:39) Labs Laboratory Tests Test 02/24/18 21:25 02/24/18 23:40 White Blood Count 5.1 TH/MM3 Red Blood Count 4.60 MIL/MM3 Hemoglobin 11.7 GM/DL Hematocrit 35.0 % Mean Corpuscular Volume 76.1 FL Mean Corpuscular Hemoglobin 25.5 PG Mean Corpuscular Hemoglobin Concent 33.5 % Red Cell Distribution Width 13.2 % Platelet Count 229 TH/MM3 Mean Platelet Volume 7.8 FL Neutrophils (%) (Auto) 72.0 % Lymphocytes (%) (Auto) 19.8 % Monocytes (%) (Auto) 7.1 % Eosinophils (%) (Auto) 0.7 % Basophils (%) (Auto) 0.4 % Neutrophils # (Auto) 3.7 TH/MM3 Lymphocytes # (Auto) 1.0 TH/MM3 Monocytes # (Auto) 0.4 TH/MM3 Eosinophils # (Auto) 0.0 TH/MM3 Basophils # (Auto) 0.0 TH/MM3 CBC Comment DIFF FINAL Differential Comment Urine Color YELLOW Urine Turbidity CLEAR Urine pH 6.0 Urine Specific [place] 1.020 Urine Protein 30 mg/dL Urine Glucose (UA) NEG mg/dL Urine Ketones TRACE mg/dL Urine Occult Blood NEG Urine Nitrite NEG Urine Bilirubin NEG Urine Urobilinogen 1.0 MG/DL Urine Leukocyte Esterase NEG Urine RBC 0-3 /hpf Urine WBC 3-5 /hpf Urine Squamous Epithelial Cells 0-5 /hpf Urine Bacteria NONE /hpf Microscopic Urinalysis Comment CULT NOT INDICATED Blood Urea Nitrogen 9 MG/DL Creatinine 0.67 MG/DL Random Glucose 201 MG/DL Total Protein 8.3 GM/DL Albumin 3.1 GM/DL Calcium Level 8.3 MG/DL Alkaline Phosphatase 83 U/L Aspartate Amino Transf (AST/SGOT) 47 U/L Alanine Aminotransferase (ALT/SGPT) 106 U/L Total Bilirubin 0.5 MG/DL Sodium Level 135 MEQ/L Potassium Level 3.7 MEQ/L Chloride Level 100 MEQ/L Carbon Dioxide Level 28.5 MEQ/L Anion Gap 7 MEQ/L Estimat Glomerular Filtration Rate 128 ML/MIN Lactic Acid Level 2.1 mmol/L 1.6 mmol/L Total Creatine Kinase 45 U/L [facility] Medical Decision Making Medical Screen Exam Complete: Yes Emergency Medical Condition: Yes Medical Record Reviewed: Yes Interpretation(s) Lactic acid: 2.1 Last Impressions Chest X-Ray 02/24/18 0000 Signed Impressions: CONCLUSION: Negative examination. CBC & BMP Diagram 02/24/18 21:25 Total Protein 8.3 H, Albumin 3.1 L, Calcium Level 8.3 L, Alkaline Phosphatase 83 , Aspartate Amino Transf (AST/SGOT) 47 H, Alanine Aminotransferase (ALT/SGPT) 106 H, Total Bilirubin 0.5 Vital Signs Date Time Temp Pulse Resp B/P (MAP) Pulse Ox O2 Delivery O2 Flow Rate FiO2 02/24/18 23:34 100.1 97 18 133/80 (97) 95 Room Air 02/24/18 22:50 99 169/97 (121) 02/24/18 22:34 103.1 02/24/18 21:45 103.0 99 20 167/92 (117) 100 Room Air 02/24/18 20:19 103.1 111 22 144/92 (109) 95 Room Air 02/24/18 20:16 103.1 111 22 144/92 (109) 95 Differential Diagnosis Sepsis osteomyelitis cellulitis abscess; no findings for necrotizing fasciitis Narrative Course IV access antipyretics ordered and specimens collected and sent for resulting patient reports he is a difficult IV access patient and recommends attempt external jugular access for his IV Patient unwilling to allow extremity peripheral access therefore nursing request EJ placement by me Left EJ placed by me patient was placed supine and mild Trendelenburg patient appeared to have acceptable external jugular exposure on the left site was cleansed with ChloraPrep and 20-gauge Angiocath was inserted on first attempt without difficulty with good blood return site was secured specimens are collected from that site site was flushed IV fluids administered along with ordered IV medications. Patient given ibuprofen for fever Patient remains febrile administered 1 g acetaminophen Lab values resulted and patient is noted to have mildly elevated lactic acid second lactic acid ordered CT of the right lower extremity remains pending Patient meets sepsis criteria for admission CT lower extremity remains pending will admit patient to medicine service for ongoing IV antibiotics and infectious disease consult as needed and will notify admitting physician imaging study remains pending Sepsis Criteria SIRS Criteria (2 or more): Temp > 100.9 or < 96.8, Heart rate over 90, RR > 20 or PaCO2 < 32 Sepsis Criteria (SIRS+source): Infect source susp/known (RLE) Severe Sepsis (+one): Lactate >2 Physician Communication Physician Communication call placed to [facility] --discussed with DR Walters Diagnosis Primary Impression: Sepsis affecting skin Additional Impressions: Diabetes mellitus Cellulitis Admitting Information Admitting Physician Requests: Admit Johana Gutierrez MD Feb 24, 2018 21:23
--- NOTE | 2018-02-24 21:30 | RADRPT ---
EXAM DATE: 02/24/2018 9:24 PM EDT AGE/SEX: 47 years / Male INDICATIONS: Fever CLINICAL DATA: This is the patient's initial encounter. Patient reports that signs and symptoms have been present for 1 day and indicates a pain score of 2/10. MEDICAL/SURGICAL HISTORY: None. None. COMPARISON: [facility], CHEST SINGLE AP, 12/10/2017. . FINDINGS: A single AP view of the chest demonstrates the lungs to be symmetrically aerated without evidence of mass, infiltrate or effusion. The cardiomediastinal contours are unremarkable. Osseous structures a re intact. CONCLUSION: Negative examination. Electronically signed by: Glenn Zuniga MD 02/24/2018 9:29 PM EDT
[2018-02-24 21:40] LABS: AUTOMATED NEUTROPHIL # 3.7 TH/MM3 (1.8-7.7); BASOPHIL % 0.4 % (0.0-2.0); BILIRUBIN, URINE NEG (NEG); BLOOD, URINE NEG (NEG); EOSINOPHIL % 0.7 % (0.0-4.0); GLUCOSE,URINE NEG (NEG); HEMOGLOBIN 11.7 GM/DL (13.0-17.0); KETONE, URINE TRACE mg/dL (NEG); LYMPH % 19.8 % (9.0-44.0); MEAN CELL VOLUME 76.1 FL (80.0-100.0); MEAN CORPUSCULAR HEMOGLOBIN 25.5 PG (27.0-34.0); MEAN CORPUSCULAR HGB CONC 33.5 % (32.0-36.0); MEAN PLATELET VOLUME 7.8 FL (7.0-11.0); MONO % 7.1 % (0.0-8.0); MONOCYTE # 0.4 TH/MM3 (0-0.9); NITRITE,URINE NEG (NEG); PLATELET COUNT 229 TH/MM3 (150-450); RED CELL DISTRIBUTION WIDTH 13.2 % (11.6-17.2); URINE COLOR YELLOW (YELLW/STRAW); URINE LEUKOCYTE ESTERASE NEG (NEG); WHITE BLOOD COUNT 5.1 TH/MM3 (4.0-11.0)
[2018-02-24 21:45] VITALS: BP 167/92; PULSE 99; RESP 20; TEMP 103; O2SAT 100
[2018-02-24 21:45] LABS: RBC, URINE 0-3 /hpf (0-3); SQUAMOUS EPITHELIAL CELL URINE 0-5 /hpf (0-5)
[2018-02-24 21:47] LABS: CHLORIDE 100 MEQ/L (98-107); SODIUM (NA) 135 MEQ/L (136-145)
[2018-02-24 21:50] LABS: CALCIUM 8.3 MG/DL (8.5-10.1)
[2018-02-24 21:51] LABS: ALBUMIN 3.1 GM/DL (3.4-5.0); BICARBONATE 28.5 MEQ/L (21.0-32.0); BLOOD UREA NITROGEN 9 MG/DL (7-18); GLUCOSE,RANDOM 201 MG/DL (74-106)
[2018-02-24 21:54] LABS: ALT (GPT) 106 U/L (12-78); AST (GOT) 47 U/L (15-37); CREATININE 0.67 MG/DL (0.60-1.30); GLOMERULAR FILTRATION RATE 128 ML/MIN (>89)
[2018-02-24 21:56] LABS: LACTIC ACID SEPSIS PROTOCOL 2.1 mmol/L (0.4-2.0); TOTAL BILIRUBIN ADULT 0.5 MG/DL (0.2-1.0); TOTAL PROTEIN 8.3 GM/DL (6.4-8.2)
[2018-02-24 21:57] LABS: ALKALINE PHOSPHATASE 83 U/L (45-117)
[2018-02-24 22:34] VITALS: TEMP 103.1
[2018-02-24] MEDS ORDERED: ACETAMINOPHEN 500 MG CPLT PO ONE (22:45)
[2018-02-24 22:50] VITALS: BP 169/97; PULSE 99
[2018-02-24 23:34] VITALS: BP 133/80; PULSE 97; RESP 18; TEMP 100.1; O2SAT 95
[2018-02-25 00:40] VITALS: BP 145/95; PULSE 87; RESP 18; TEMP 98.3; O2SAT 97
[2018-02-25] MEDS ORDERED: SODIUM CHLOR 0.9% 1000 ML INJ 1,000 ML IV SCH (00:42)
[2018-02-25] MEDS ORDERED: GLUCAGON 1 MG/ML VIAL OTHER PRN (00:45)
[2018-02-25] MEDS ORDERED: METOCLOPRAMIDE HCL 10 MG/2 ML VIAL IV PUSH PRN (00:45)
[2018-02-25] MEDS ORDERED: Vancomycin Consult Pharmacy 1 EA OTHER SCH (00:45)
[2018-02-25] MEDS ORDERED: BISACODYL 10 MG SUPP RECTAL PRN (00:45)
[2018-02-25] MEDS ORDERED: DEXTROSE 50% IN WATER 50 ML VIAL(D50) IV PUSH PRN (00:45)
[2018-02-25] MEDS ORDERED: SENNOSIDES 8.6 MG TAB PO PRN (00:45)
[2018-02-25] MEDS ORDERED: ACETAMINOPHEN 325 MG TAB PO PRN (00:45)
[2018-02-25] MEDS ORDERED: LACTULOSE SYRUP 20 GM/30 ML CUP PO PRN (00:45)
[2018-02-25] MEDS ORDERED: MAGNESIUM HYDROXIDE SUSP 30 ML CUP PO PRN (00:45)
[2018-02-25] MEDS ORDERED: IOHEXOL 350 MG/ML 10 ML VIAL (for RAD DIAG) IVCONTRAST ONE (00:59)
[2018-02-25] MEDS ORDERED: VANCOMYCIN 1 GM/200 ML PREMIX IV ONE (01:30)
--- NOTE | 2018-02-25 01:39 | RADRPT ---
EXAM DATE: 02/25/2018 1:31 AM EDT AGE/SEX: 47 years / Male INDICATIONS: Right lower leg infection. Fever. CLINICAL DATA: This is the patient's initial encounter. Patient reports that signs and symptoms have been present for 2 weeks and indicates a pain score of 7/10. MEDICAL/SURGICAL HISTORY: Diabetes. Hypertension. . Right ankle. RADIATION DOSE: 12.21 CTDI (mGy) COMPARISON: No prior [facility] exams available for comparison. TECHNIQUE: Multiple contiguous axial images were acquired using a multirow detector CT scanner af ter intravenous administration of 75 ml Omnipaque 350 (iohexol) nonionic water-soluble contrast as a single exam dose. Multiplanar reconstruction was performed in the sagittal and coronal planes. Usi ng automated exposure control and adjustment of the mA and/or kV according to patient size, radiation dose was kept as low as reasonably achievable to obtain optimal diagnostic quality images. FINDINGS: Bones: The bony structures are intact. No fracture is seen. No evidence of bony destruction. There is evidence of previous internal fixation of the distal fibula. Soft Tissues: There is nonspecific edema and soft tissue swelling in the subcutaneous soft tissues a long the anterolateral aspect of the mid to lower leg. No loculated fluid collections are demonstrate d. Other: No foreign bodies seen. Post Contrast: No abnormal areas of enhancement are seen in the marrow or soft tissues. CONCLUSION: 1. Nonspecific subcutaneous soft tissue swelling and edema along the anterolateral aspect of the mid to lower leg. 2. The bony structures are grossly intact. Electronically signed by: Deondre Kapadia MD 02/25/2018 1:38 AM EDT
[2018-02-25] MEDS: SODIUM CHLORIDE 0.9% FLUSH 10 ML FLUSH IV FLUSH PRN ×2 (02:33→07:29)
[2018-02-25] MEDS: MORPHINE SULFATE 2 MG/ML SYRINGE IV PUSH PRN ×2 (02:34→07:29)
[2018-02-25 02:45] VITALS: BP 140/92; PULSE 69; RESP 20; TEMP 97.6; O2SAT 97
[2018-02-25 03:34] VITALS: PULSE 64
[2018-02-25] MEDS ORDERED: AZTREONAM INJ 1,000 MG in SODIUM CHLORIDE 0.9% INJ 100 ML IV SCH (06:00)
[2018-02-25 08:00] VITALS: BP 172/105; PULSE 64; RESP 20; TEMP 97.4; O2SAT 97
[2018-02-25] MEDS ORDERED: INSULIN ASPART SUPPLEMENTAL SCALE SQ SCH (08:00)
[2018-02-25] MEDS ORDERED: INSULIN DETEMIR 100 UNITS/ML VIAL SQ SCH (09:00)
[2018-02-25] MEDS ORDERED: DOCUSATE SODIUM 50 MG/SENNA 8.6 MG TAB PO SCH (09:00)
[2018-02-25] MEDS ORDERED: HEPARIN SODIUM - SQ 10,000 UNITS/ML VIAL SQ SCH ×2 (09:00→16:00)
[2018-02-25] MEDS ORDERED: SODIUM CHLORIDE 0.9% FLUSH 10 ML FLUSH IV FLUSH SCH (09:00)
[2018-02-25] MEDS ORDERED: LISINOPRIL 20 MG TAB PO SCH (09:45)
[2018-02-25] MEDS ORDERED: HYDROCHLOROTHIAZIDE 25 MG TAB PO SCH (09:45)
[2018-02-25] MEDS ORDERED: oxyCODONE/ACETAMINOPHEN 7.5 MG/325 MG TAB PO PRN (10:45)
[2018-02-25] MEDS: GABAPENTIN 100 MG CAP PO SCH ×2 (11:21→11:22)
[2018-02-25 12:00] VITALS: BP 174/117; PULSE 70; RESP 20; TEMP 97.5; O2SAT 99
[2018-02-25] MEDS ORDERED: VANCOMYCIN 1,500 MG/NS 500 ML IV SCH ×2 (12:00)
--- NOTE | 2018-02-25 12:22 | HHI.HP ---
[facility] No Primary Care Physician Admission Diagnosis sepsis; RLE cellulitis/abscess Diagnoses: Chief Complaint: Leg pain and fevers at home Travel History International Travel<30 Days: No Contact w/Intl Traveler <30 Da: No Traveled to Known Affected Are: No History of Present Illness This patient is a 47-year-old gentleman with multiple admissions for complaints of bilateral lower extremity pain and concerns for recurrent infection. He reports fevers of 100 reason for at home up to 104 at home with associated bilateral leg pain. He has had multiple admissions since November for similar complaints. Initially there was an abscess which was treated effectively with infectious disease consultation and course of antibiotics. Patient has returned periodically to the emergency room with complaints of the same and severe pain only amenable to IV narcotics. Patient at this time is come to the emergency room for the same. He had temperature 100.1 on arrival in the emergency room without tachycardia or leukocytosis. His lower extremity exam is relatively unremarkable based on prior exam by this provider. He does have chronic skin changes and chronic dusky medial lesions in his lower extremity. There is some recurrent ulcerations and it is chronically tender. Overall from previous evaluation and initial assessment of the abscess patient's legs are improved. Further patient has had multiple markers of inflammatory response and they have improved as well. This time patient is recommended for observation due to low-grade temperature and uncontrolled diabetes with a hemoglobin A1c of 12 or greater. He has requested IV narcotics. This was changed to oral medications as the patient is swallowing without difficulty. He has requested a desire to leave AGAINST MEDICAL ADVICE. Review of Systems Constitutional: COMPLAINS OF: Fever, DENIES: Diaphoretic episodes, Fatigue, Weight gain, Weight loss, Chills, Dizziness, Change in appetite, Night Sweats Endocrine: DENIES: Heat/cold intolerance, Polydipsia, Polyuria, Polyphagia Eyes: DENIES: Blurred vision, Diplopia, Eye inflammation, Eye pain, Vision loss , Photosensitivity, Double Vision Ears, nose, mouth, throat: DENIES: Tinnitus, Hearing loss, Vertigo, Nasal discharge, Oral lesions, Throat pain, Hoarseness, Ear Pain, Running Nose, Epistaxis, Sinus Pain, Toothache, Odynophagia Respiratory: DENIES: Apneas, Cough, Snoring, Wheezing, Hemoptysis, Sputum production, Shortness of breath Cardiovascular: DENIES: Chest pain, Palpitations, Syncope, Dyspnea on Exertion , PND, Lower Extremity Edema, Orthopnea, Claudication Gastrointestinal: DENIES: Abdominal pain, Black stools, Bloody stools, Constipation, Diarrhea, Nausea, Vomiting, Difficulty Swallowing, Anorexia Genitourinary: DENIES: Sexual dysfunction, Urinary frequency, Urinary incontinence, Urgency, Hematuria, Dysuria, Nocturia, Penile Discharge, Testicular Pain, Testicular Swelling Musculoskeletal: DENIES: Joint pain, Muscle aches, Stiffness, Joint Swelling, Back pain, Neck pain Integumentary: DENIES: Abnormal pigmentation, Nail changes, Pruritus, Rash Hematologic/lymphatic: DENIES: Bruising, Lymphadenopathy Immunologic/allergic: DENIES: Eczema, Urticaria Neurologic: DENIES: Abnormal gait, Headache, Localized weakness, Paresthesias, Seizures, Speech Problems, Tremor, Poor Balance Psychiatric: DENIES: Anxiety, Confusion, Mood changes, Depression, Hallucinations, Agitation, Suicidal Ideation, Homicidal Ideation, Delusions Except as stated in HPI: all other systems reviewed are Neg As per HPI Past Family Social History Past Medical History Diabetes mellitus type 2 Poor adherence to medical treatment Chronic narcotic dependency Hypertension Past Surgical History IND lower extremity Appendectomy Bladder surgery Reported Medications Reviewed in the EMR Allergies: Coded Allergies: carbamazepine (Verified Allergy, Severe, HIVES, 02/24/18) cephalexin (Verified Allergy, Severe, Rash, 02/24/18) erythromycin base (Verified Allergy, Severe, RASH, 02/24/18) penicillin G (Verified Allergy, Severe, RASH, 02/24/18) phenytoin (Verified Allergy, Severe, RASH, 02/24/18) hydrocodone (Verified Allergy, Unknown, HIVES, 02/24/18) codeine (Verified Adverse Reaction, Severe, "UPSETS HIS STOMACH", 02/24/18) ALLERGIC TO CODEINE NOT THE ACETAMINOPHEN *MDRO Multi-Drug Resistant Organism (Verified Adverse Reaction, Unknown, ) 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 Ordered Medications Reviewed in the EMR Family History Diabetes Social History Lives with his family, no alcohol dependency No current tobacco dependency History of narcotic dependency Physical Exam Vital Signs Vital Signs Date Time Temp Pulse Resp B/P (MAP) Pulse Ox O2 Delivery O2 Flow Rate FiO2 02/25/18 12:00 97.5 70 20 174/117 (136) 99 02/25/18 08:00 97.4 64 20 172/105 (127) 97 02/25/18 03:34 64 02/25/18 02:45 97.6 69 20 140/92 (108) 97 02/25/18 02:15 02/25/18 00:40 98.3 87 18 145/95 (112) 97 Room Air 02/24/18 23:34 100.1 97 18 133/80 (97) 95 Room Air 02/24/18 22:50 99 169/97 (121) 02/24/18 22:34 103.1 02/24/18 21:45 103.0 99 20 167/92 (117) 100 Room Air 02/24/18 20:19 103.1 111 22 144/92 (109) 95 Room Air 02/24/18 20:16 103.1 111 22 144/92 (109) 95 Physical Exam GENERAL: This is a well-nourished, well-developed patient, in no apparent distress. SKIN: Bilateral lower extremity skin changes which are chronic. Bilaterally medial there is some chronic firmness around old scar. There appears to be no surrounding erythema, lymphangitic changes. There is some swelling which is chronic for this patient based on previous exams HEAD: Atraumatic. Normocephalic. No temporal or scalp tenderness. EYES: Pupils equal round and reactive. Extraocular motions intact. No scleral icterus. No injection or drainage. ENT: Nose without bleeding, purulent drainage or septal hematoma. Throat without erythema, tonsillar hypertrophy or exudate. Uvula midline. Airway patent. NECK: Trachea midline. No JVD or lymphadenopathy. Supple, nontender, no meningeal signs. CARDIOVASCULAR: Regular rate and rhythm without murmurs, gallops, or rubs. RESPIRATORY: Clear to auscultation. Breath sounds equal bilaterally. No wheezes , rales, or rhonchi. GASTROINTESTINAL: Abdomen soft, non-tender, nondistended. No hepato-splenomegaly , or palpable masses. No guarding. MUSCULOSKELETAL: Extremities without clubbing, cyanosis, or edema. No joint tenderness, effusion, or edema noted. No calf tenderness. Negative Homans sign bilaterally. NEUROLOGICAL: Awake and alert. Cranial nerves II through XII intact. Motor and sensory grossly within normal limits. Five out of 5 muscle strength in all muscle groups. Normal speech. Laboratory Laboratory Tests Test 02/24/18 21:25 02/24/18 23:40 White Blood Count 5.1 Red Blood Count 4.60 Hemoglobin 11.7 Hematocrit 35.0 Mean Corpuscular Volume 76.1 Mean Corpuscular Hemoglobin 25.5 Mean Corpuscular Hemoglobin Concent 33.5 Red Cell Distribution Width 13.2 Platelet Count 229 Mean Platelet Volume 7.8 Neutrophils (%) (Auto) 72.0 Lymphocytes (%) (Auto) 19.8 Monocytes (%) (Auto) 7.1 Eosinophils (%) (Auto) 0.7 Basophils (%) (Auto) 0.4 Neutrophils # (Auto) 3.7 Lymphocytes # (Auto) 1.0 Monocytes # (Auto) 0.4 Eosinophils # (Auto) 0.0 Basophils # (Auto) 0.0 CBC Comment DIFF FINAL Differential Comment Urine Color YELLOW Urine Turbidity CLEAR Urine pH 6.0 Urine Specific Celeste 1.020 Urine Protein 30 Urine Glucose (UA) NEG Urine Ketones TRACE Urine Occult Blood NEG Urine Nitrite NEG Urine Bilirubin NEG Urine Urobilinogen 1.0 Urine Leukocyte Esterase NEG Urine RBC 0-3 Urine WBC 3-5 Urine Squamous Epithelial Cells 0-5 Urine Bacteria NONE Microscopic Urinalysis Comment CULT NOT INDICATED Blood Urea Nitrogen 9 Creatinine 0.67 Random Glucose 201 Total Protein 8.3 Albumin 3.1 Calcium Level 8.3 Alkaline Phosphatase 83 Aspartate Amino Transf (AST/SGOT) 47 Alanine Aminotransferase (ALT/SGPT) 106 Total Bilirubin 0.5 Sodium Level 135 Potassium Level 3.7 Chloride Level 100 Carbon Dioxide Level 28.5 Anion Gap 7 Estimat Glomerular Filtration Rate 128 Lactic Acid Level 2.1 1.6 Total Creatine Kinase 45 Date/Time Source Procedure Growth Status 02/24/18 21:30 Blood Peripheral Aerobic Blood Culture - Preliminary NO GROWTH IN 1 DAY Resulted 02/24/18 21:30 Blood Peripheral Anaerobic Blood Culture - Preliminary NO GROWTH IN 1 DAY Resulted Result Diagram: 02/24/18212402/24/182124 Imaging Last Impressions Lower Extremity CT 02/25/18 0000 Signed Impressions: CONCLUSION: 1. Nonspecific subcutaneous soft tissue swelling and edema along the anterolat eral aspect of the mid to lower leg. 2. The bony structures are grossly intact. Chest X-Ray 02/24/18 0000 Signed Impressions: CONCLUSION: Negative examination. Assessment and Plan Problem List: (1) Leg pain ICD Code: M79.606 - Pain in leg, unspecified Plan: May be multifactorial due to edema and neuropathy from diabetes. This time does not appear to be actively infected. Patient has requested multiple doses of narcotics. I did change his IV morphine to Percocet and added gabapentin for possible diabetic neuropathy. (2) Diabetes mellitus ICD Code: E11.9 - Type 2 diabetes mellitus without complications Status: Chronic Plan: Continue with current diabetic medication and ADA diet Last hemoglobin A1c over 12 Assessment and Plan likely ama Diet diabetic Code Status Full code Discussed Condition With Patient, nursing team Dalia Husain MD Feb 25, 2018 12:22
[2018-02-26] MEDS ORDERED: PHARMACY ORDERED LAB ONE (03:45)
== END 2018-02-25 12:45 | disposition left against medical advice (07) | DRG 74 ==
LOC: PHED 20:14 → PHEDA 02-25 00:41 → PH3B 02-25 02:15
PROVIDERS: ADMIT Hospitalist; ATTEND Hospitalist
PROC: 05HQ33Z Insertion of Infusion Device into Left External Jugular Vein, Percutaneous Approach (ICD-10-PCS; principal; 2018-02-25)
DX: E11.42 Type 2 diabetes mellitus with diabetic polyneuropathy (principal); E11.65 Type 2 diabetes mellitus with hyperglycemia; I10 Essential (primary) hypertension; F11.20 Opioid dependence, uncomplicated; M51.9 Unspecified thoracic, thoracolumbar and lumbosacral intervertebral disc disorder; M19.90 Unspecified osteoarthritis, unspecified site; G47.30 Sleep apnea, unspecified; Z79.4 Long term (current) use of insulin; Z83.3 Family history of diabetes mellitus; Z85.51 Personal history of malignant neoplasm of bladder; Z86.73 Personal history of transient ischemic attack (TIA), and cerebral infarction without residual deficits; Z88.0 Allergy status to penicillin; Z88.1 Allergy status to other antibiotic agents; Z88.5 Allergy status to narcotic agent; Z91.19 Patient's noncompliance with other medical treatment and regimen
CPT/HCPCS: 71045; 73701; 80053; 81001; 82550; 82948; 83605; 85025; 87040; J1644; J1815; J2270; J3370; J7030; J7050; Q9967